=== PATIENT | female | born 1970 | race African-American/Black ===

== ENCOUNTER 2018-01-24 10:43 | Inpatient (IN) | payer MEDICARE, MEDICAID ==
[~2018-01-24] VITALS: Ht 170.2 cm; Wt 86.4 kg
[2018-01-24] VITALS (11 sets, daily range): BP systolic 117–144; BP diastolic 66–78
[2018-01-24] MEDS ORDERED: Sodium Chloride 500ML 500 ML IV ONE (10:48)
[2018-01-24] MEDS ORDERED: Isovue-300 100ml vial INJ PRN (11:00)
[2018-01-24] MEDS ORDERED: Morphine Sulfate 4mg/ml Inj IVP ONE ×2 (11:00→12:30)
[2018-01-24 11:55] LABS: BASOPHILS % (AUTO) 0.2 % (0.0-2.0); EOSINOPHILS % (AUTO) 0.1 % (0.0-3.0); HEMATOCRIT 35.9 % (37.0-47.0); HEMOGLOBIN 12.6 G/DL (12.0-16.0); LYMPHOCYTES % (AUTO) 9.1 % (20.0-45.0); MEAN CORPUSCULAR VOLUME 98 FL (80-99); MONOCYTES % (AUTO) 6.1 % (1.0-10.0); NEUTROPHILS % (AUTO) 84.6 % (45.0-75.0); PLATELET COUNT 277 K/UL (150-450); RED BLOOD COUNT 3.66 M/UL (4.20-5.40); WHITE BLOOD COUNT 13.6 K/UL (4.8-10.8)
[2018-01-24 12:21] LABS: ALANINE AMINOTRANSFERASE 17 U/L (12-78); ALBUMIN 3.1 G/DL (3.4-5.0); ALBUMIN/GLOBULIN RATIO 0.9 (1.0-2.7); ALKALINE PHOSPHATASE 59 U/L (46-116); ANION GAP 11 mmol/L (5-15); ASPARTATE AMINO TRANSFERASE 5 U/L (15-37); BILIRUBIN,TOTAL 0.6 MG/DL (0.2-1.0); BLOOD UREA NITROGEN 9 mg/dL (7-18); CALCIUM 8.1 MG/DL (8.5-10.1); CARBON DIOXIDE 22 MMOL/L (21-32); CHLORIDE 105 MMOL/L (98-107); CKMB 0.9 NG/ML (0.0-3.6); CREATINE KINASE 59 U/L (26-308); SODIUM 138 MMOL/L (136-145)
[2018-01-24 12:30] LABS: CREATININE 0.5 MG/DL (0.55-1.30)
[2018-01-24 12:35] LABS: POTASSIUM 2.7 MMOL/L (3.5-5.1)
[2018-01-24 13:53] LABS: APPEARANCE,URINE SLIGHTLY CLOUDY; BILIRUBIN, URINE NEGATIVE (NEGATIVE); GLUCOSE, URINE (UA) NEGATIVE (NEGATIVE); KETONES,URINE 3+ (NEGATIVE); LEUKOCYTE ESTERASE ,URINE 1+ (NEGATIVE); NITRITE,URINE NEGATIVE (NEGATIVE); PH,URINE 5 (4.5-8.0); PROTEIN,URINE 1+ (NEGATIVE); UROBILINOGEN,URINE NORMAL MG/DL (0.0-1.0)
[2018-01-24 14:03] LABS: COLOR,URINE YELLOW
--- NOTE | 2018-01-24 14:20 | Emergency Room Report ---
History of Present Illness General Chief Complaint: Abdominal Pain Source: Patient, EMS (Brad Muñoz DO) Present Illness HPI Patient presents with complaints of abdominal pain Reports the pain started this morning Patient denies any trauma Denies any chest pain or shortness of breath Patient did have a pleuritic component to the pain Pain is 10 out of 10 complains of epigastric pain also burning sensation in the left lower abdomen Patient reports previous myomectomy but no other surgeries She has some increased nausea Also reports 1 episode of diarrhea (KyrieBard govea DO) Allergies: Coded Allergies: No Known Allergies (Unverified , 01/24/18) Patient History Past Medical History: see triage record Pertinent Family History: none Last Menstrual Period: 01/08/18 Reviewed Nursing Documentation: PMH: Agreed; PSxH: Agreed (KyrieBrad bravo ) Nursing Documentation-PMH Past Medical History: No Stated History (MichaelBrad lang DO) Review of Systems All Other Systems: negative except mentioned in HPI (KyrieBrad govea DO) Physical Exam Vital Signs Date Time Temp Pulse Resp B/P (MAP) Pulse Ox O2 Delivery O2 Flow Rate FiO2 01/24/18 10:32 98.4 80 16 137/72 99 98.4 Sp02 EP Interpretation: reviewed, normal General Appearance: mild distress - Uncomfortable in pain Head: normocephalic, atraumatic Eyes: bilateral eye PERRL, bilateral eye EOMI ENT: hearing grossly normal, normal pharynx, TMs + canals normal, uvula midline Neck: full range of motion, supple, no meningismus, no bony tend Respiratory: lungs clear, normal breath sounds, no rhonchi, no respiratory distress, no retraction, no accessory muscle use Cardiovascular #1: normal peripheral pulses, regular rate, rhythm, no edema, no gallop, no JVD, no murmur Gastrointestinal: normal bowel sounds, soft, no mass, no organomegaly, non- distended, no hernia, no pulsatile mass, tenderness - Diffusely, patient's abdomen is soft however subjectively points diffusely throughout the abdomen, exam is difficult Genitourinary: no CVA tenderness Musculoskeletal: normal inspection Neurologic: oriented x3, responsive, 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, motor strength/ tone normal, sensory intact Psychiatric: mood/affect normal Skin: normal color, no rash, warm/dry, palpation normal Lymphatic: normal inspection, no adenopathy (Brad Muñoz DO) Procedures Critical Care Time Critical Care Time 50 minutes for multiple re-evaluations Critical presentation and critical findings concerning for life-threatening pathology not including any procedural time (Brad Muñoz DO) Medical Decision Making Diagnostic Impression: Primary Impression: Hypokalemia Additional Impressions: Abdominal pain Perforated abdominal viscus ER Course With the history exam and presentation, multiple differentials considered, including but not limited to appendicitis, gastritis, cholecystitis, diverticulitis Patient's blood work reveals elevated white blood cell count CT imaging at this time reveals free air indicative of bowel perforation Gen. surgery is emergently contacted patient requiring emergency surgery Labs Test 01/24/18 11:15 01/24/18 12:15 White Blood Count 13.6 K/UL (4.8-10.8) Red Blood Count 3.66 M/UL (4.20-5.40) Hemoglobin 12.6 G/DL (12.0-16.0) Hematocrit 35.9 % (37.0-47.0) Mean Corpuscular Volume 98 FL (80-99) Mean Corpuscular Hemoglobin 34.4 PG (27.0-31.0) Mean Corpuscular Hemoglobin Concent 35.1 G/DL (32.0-36.0) Red Cell Distribution Width 12.0 % (11.6-14.8) Platelet Count 277 K/UL (150-450) Mean Platelet Volume 5.8 FL (6.5-10.1) Neutrophils (%) (Auto) 84.6 % (45.0-75.0) Lymphocytes (%) (Auto) 9.1 % (20.0-45.0) Monocytes (%) (Auto) 6.1 % (1.0-10.0) Eosinophils (%) (Auto) 0.1 % (0.0-3.0) Basophils (%) (Auto) 0.2 % (0.0-2.0) Sodium Level 138 MMOL/L (136-145) Potassium Level 2.7 MMOL/L (3.5-5.1) Chloride Level 105 MMOL/L (98-107) Carbon Dioxide Level 22 MMOL/L (21-32) Anion Gap 11 mmol/L (5-15) Blood Urea Nitrogen 9 mg/dL (7-18) Creatinine 0.5 MG/DL (0.55-1.30) Estimat Glomerular Filtration Rate > 60 mL/min (>60) Glucose Level 97 MG/DL (74-106) Calcium Level 8.1 MG/DL (8.5-10.1) Total Bilirubin 0.6 MG/DL (0.2-1.0) Aspartate Amino Transf (AST/SGOT) 5 U/L (15-37) Alanine Aminotransferase (ALT/SGPT) 17 U/L (12-78) Alkaline Phosphatase 59 U/L (46-116) Total Creatine Kinase 59 U/L (26-308) Creatine Kinase MB 0.9 NG/ML (0.0-3.6) Creatine Kinase MB Relative Index 1.5 Troponin I 0.000 ng/mL (0.000-0.056) Total Protein 6.7 G/DL (6.4-8.2) Albumin 3.1 G/DL (3.4-5.0) Globulin 3.6 g/dL Albumin/Globulin Ratio 0.9 (1.0-2.7) Lipase 323 U/L (73-393) Urine Color Yellow Urine Appearance Slightly cloudy Urine pH 5 (4.5-8.0) Urine Specific [place] 1.025 (1.005-1.035) Urine Protein 1+ (NEGATIVE) Urine Glucose (UA) Negative (NEGATIVE) Urine Ketones 3+ (NEGATIVE) Urine Occult Blood Negative (NEGATIVE) Urine Nitrite Negative (NEGATIVE) Urine Bilirubin Negative (NEGATIVE) Urine Urobilinogen Normal MG/DL (0.0-1.0) Urine Leukocyte Esterase 1+ (NEGATIVE) Urine RBC 0-2 /HPF (0 - 2) Urine WBC 2-4 /HPF (0 - 2) Urine Squamous Epithelial Cells Few /LPF (NONE/OCC) Urine Bacteria Few /HPF (NONE) Urine Granular Casts 0-2 /LPF (NONE) Urine Mucus Moderate /LPF (NONE/OCC) Urine HCG, Qualitative Negative (NEGATIVE) (ToniAli ) Labs Test 01/24/18 11:15 01/24/18 12:15 White Blood Count 13.6 K/UL (4.8-10.8) Red Blood Count 3.66 M/UL (4.20-5.40) Hemoglobin 12.6 G/DL (12.0-16.0) Hematocrit 35.9 % (37.0-47.0) Mean Corpuscular Volume 98 FL (80-99) Mean Corpuscular Hemoglobin 34.4 PG (27.0-31.0) Mean Corpuscular Hemoglobin Concent 35.1 G/DL (32.0-36.0) Red Cell Distribution Width 12.0 % (11.6-14.8) Platelet Count 277 K/UL (150-450) Mean Platelet Volume 5.8 FL (6.5-10.1) Neutrophils (%) (Auto) 84.6 % (45.0-75.0) Lymphocytes (%) (Auto) 9.1 % (20.0-45.0) Monocytes (%) (Auto) 6.1 % (1.0-10.0) Eosinophils (%) (Auto) 0.1 % (0.0-3.0) Basophils (%) (Auto) 0.2 % (0.0-2.0) Sodium Level 138 MMOL/L (136-145) Potassium Level 2.7 MMOL/L (3.5-5.1) Chloride Level 105 MMOL/L (98-107) Carbon Dioxide Level 22 MMOL/L (21-32) Anion Gap 11 mmol/L (5-15) Blood Urea Nitrogen 9 mg/dL (7-18) Creatinine 0.5 MG/DL (0.55-1.30) Estimat Glomerular Filtration Rate > 60 mL/min (>60) Glucose Level 97 MG/DL (74-106) Calcium Level 8.1 MG/DL (8.5-10.1) Total Bilirubin 0.6 MG/DL (0.2-1.0) Aspartate Amino Transf (AST/SGOT) 5 U/L (15-37) Alanine Aminotransferase (ALT/SGPT) 17 U/L (12-78) Alkaline Phosphatase 59 U/L (46-116) Total Creatine Kinase 59 U/L (26-308) Creatine Kinase MB 0.9 NG/ML (0.0-3.6) Creatine Kinase MB Relative Index 1.5 Troponin I 0.000 ng/mL (0.000-0.056) Total Protein 6.7 G/DL (6.4-8.2) Albumin 3.1 G/DL (3.4-5.0) Globulin 3.6 g/dL Albumin/Globulin Ratio 0.9 (1.0-2.7) Lipase 323 U/L (73-393) Urine Color Yellow Urine Appearance Slightly cloudy Urine pH 5 (4.5-8.0) Urine Specific [place] 1.025 (1.005-1.035) Urine Protein 1+ (NEGATIVE) Urine Glucose (UA) Negative (NEGATIVE) Urine Ketones 3+ (NEGATIVE) Urine Occult Blood Negative (NEGATIVE) Urine Nitrite Negative (NEGATIVE) Urine Bilirubin Negative (NEGATIVE) Urine Urobilinogen Normal MG/DL (0.0-1.0) Urine Leukocyte Esterase 1+ (NEGATIVE) Urine RBC 0-2 /HPF (0 - 2) Urine WBC 2-4 /HPF (0 - 2) Urine Squamous Epithelial Cells Few /LPF (NONE/OCC) Urine Bacteria Few /HPF (NONE) Urine Granular Casts 0-2 /LPF (NONE) Urine Mucus Moderate /LPF (NONE/OCC) Urine HCG, Qualitative Negative (NEGATIVE) (Israel Roa MD) Rhythm Strip Diag. Results EP Interpretation: yes Rate: 88 Rhythm: NSR, no PVC's, no ectopy (Brad Muñoz DO) Chest X-Ray Diagnostic Results Chest X-Ray Diagnostic Results : Chest X-Ray Ordered: Yes # of Views/Limited/Complete: 1 View Indication: Chest Pain EP Interpretation: Yes Interpretation: no consolidation, no effusion, no pneumothorax Impression: No acute disease Electronically Signed by: Brad Muñoz DO (Brad Muñoz DO) CT/MRI/US Diagnostic Results CT/MRI/US Diagnostic Results : Impression CT abdomen pelvis: Free air indicative of perforation (Brad Muñoz DO) CT/MRI/US Diagnostic Results : Imaging Test Ordered: CT A/P Impression Hospital Course 47-year-old M presents to ED with abdominal pain Clinical course Patient initially seen and evaluated by Dr. Muñoz; please see his note for full history and physical CT scan shows free intraperitoneal air, possible perforated viscusis Antibiotics given. Discussed case with Dr. Tavares (surgery) admitted physicians Dr Murdock informed I feel this is a highly complex case requiring extensive working including EKG/ Rhythm strip, Xray/CT/US, Blood/urine lab work, repeat exams while in ED, and administration of strong opiates/narcotics for pain control, admission to hospital or close patient follow up. Diagnosis - abdominal pain, hypokalemia, perofrated viscus admitted to floor in serious condition (Israel Roa MD) Last Vital Signs Date Time Temp Pulse Resp B/P (MAP) Pulse Ox O2 Delivery O2 Flow Rate FiO2 01/24/18 12:24 98.0 01/24/18 11:08 82 23 131/74 99 Status: improved (Brad Muñoz DO) Disposition: ADMITTED INPATIENT Condition: Critical Referrals: NOT CHOSEN IPA/,REFERRING (PCP) Brad Muñoz DO January 24, 2018 14:20 Israel Roa MD January 24, 2018 15:30
--- NOTE | 2018-01-24 14:29 | Diagnostic Imaging Report ---
Indication: Reason For Exam: CP Technique: One view of the chest Comparison: none Findings: Suboptimal inspiration. There is some atelectasis at the left lung base. The lungs and pleural spaces are otherwise clear. Heart size is normal Impression: Left basilar atelectasis No acute process otherwise
[2018-01-24] MEDS ORDERED: NKM (14:38)
[2018-01-24] MEDS ORDERED: Ketorolac 30mg Inj IV ONE (14:45)
[2018-01-24] MEDS ORDERED: Piperacillin/Tazobactam 3.375 GM in D5W 110 ML IVPB ONE (15:15)
--- NOTE | 2018-01-24 15:15 | Diagnostic Imaging Report ---
Clinical Indication: Abdominal pain Technique: No oral contrast utilized, per emergency room physician request IV administration nonionic contrast. Venous phase spiral acquisition obtained through the abdomen and pelvis. Multiplanar reconstructions were generated. Total dose length product 887.23 mGycm. CTDIvol(s) 17.49 mGy. Dose reduction achieved using automated exposure control Comparison: none Findings: There is free intraperitoneal air. This is predominantly over the anterior aspect of the right and left hepatic lobes. A small collection of gas is also seen under the anterior left hemidiaphragm. However, gas bubbles are also seen within the payton hepatis, anterior to the anterior gastric wall, and in Morison's pouch. Some gas bubbles are seen immediately adjacent to the gastric fundus and immediately adjacent to the duodenal bulb. On the coronal images, there is an apparent communication between extraluminal gas and what is either the gastric antrum or duodenal bulb. The stomach and duodenum are nondistended, and therefore not possible to evaluate for wall thickening. There is also free intraperitoneal fluid, predominantly over the dome of the liver and of the spleen but some also within the pelvic cul-de-sac. No evidence of diverticulosis or diverticulitis. The appendix is normal. Small bowel loops are somewhat fluid-filled, nondistended, except for a few prominent left upper quadrant small bowel loops. The liver and gallbladder are unremarkable. There is mild dilatation of the common bile duct, which measures up to 8 mm in diameter. No downstream obstructive lesion is demonstrated. The pancreas, spleen, adrenals, right kidney are unremarkable. Left kidney demonstrates an exophytic subcentimeter low-attenuation lesion which is too small to characterize. The uterus is diffusely enlarged, contains multiple masses. No definite adnexal mass demonstrated. No retroperitoneal or mesenteric mass or adenopathy. The included lung bases demonstrate bilateral pleural effusions. There is some atelectasis at both lung bases and possibly some consolidation on the left. The bones are unremarkable except for lumbar scoliotic deformity and some secondary degenerative spondylosis changes. Impression: Positive for free intraperitoneal air. This is consistent with a perforated hollow viscus. Presence of what appears to be a communication between the gastric antral or duodenal bulb wall suggests gastric antral or duodenal bulb ulcer as etiology, although this cannot be stated for certain Associated free intraperitoneal fluid is also demonstrated Prominent left upper quadrant small bowel loop, likely focal ileus related to the above Mildly dilated common bile duct. No definite downstream obstructive lesion. Of doubtful significance, correlation with liver function tests is recommended Too small to characterize subcentimeter left renal lesion, most likely benign simple cortical cysts. No further follow-up necessary Enlarged uterus with multiple fibroids Bilateral pleural effusions. Associated basilar compressive atelectasis Lumbar scoliosis and secondary degenerative spondylosis Critical value findings provided to Dr. Roa in the emergency room at 1458 on 01/24/[address] scanner at [facility] is accredited by the [employer] and the scans are performed using protocols designed to limit radiation exposure to as low as reasonably achievable to attain images of sufficient resolution adequate for diagnostic evaluation.
[2018-01-24] MEDS ORDERED: Nitroglycerin Subl 0.4mg tab SL PRN (15:30)
[2018-01-24] MEDS ORDERED: Mylanta II UD 30ml ORAL PRN (15:30)
[2018-01-24] MEDS ORDERED: LR 1000ml 1,000 ML IVLG SCH (16:41)
[2018-01-24] MEDS ORDERED: Ketorolac 30mg Inj IV PRN ×2 (16:45)
[2018-01-24] MEDS ORDERED: Metoclopramide 10mg/2ml Inj IVP PRN (16:45)
[2018-01-24] MEDS ORDERED: HYDROcodone/Acetamin 7.5/325 tab ORAL PRN (16:45)
[2018-01-24] MEDS ORDERED: Acetaminophen (Non formulary) 100 ML IV ONE (16:45)
[2018-01-24] MEDS ORDERED: oxyCODONE HCL/Acetaminophen 5/325mg ORAL PRN (16:45)
[2018-01-24] MEDS ORDERED: Labetalol 5mg/ml 20ml vial IV PRN (16:45)
[2018-01-24] MEDS ORDERED: fentaNYL 100 mcg/2 mL IV PRN (16:45)
[2018-01-24] MEDS ORDERED: LORazepam Inj 2mg/ml 1ml IV PRN (16:45)
[2018-01-24] MEDS ORDERED: DiphenhydrAMINE 50mg/ml Inj IVP PRN (16:45)
[2018-01-24] MEDS ORDERED: Midazolam 2mg/2ml Inj IVP PRN (16:45)
[2018-01-24] MEDS ORDERED: Norco 5mg/325mg tab ORAL PRN (16:45)
[2018-01-24] MEDS ORDERED: Atropine Inj 1mg/10ml Syr IV PRN (16:45)
[2018-01-24] MEDS ORDERED: Lidocaine 1% Plain 30 ml INJ ONE ×2 (16:49→16:56)
[2018-01-24] MEDS ORDERED: Neostigmine 1mg/ml 10ml Inj ONE (16:50)
[2018-01-24] MEDS ORDERED: Sodium Chloride 10ml vial INJ ONE (16:50)
[2018-01-24] MEDS ORDERED: Propofol 200mg/20ml IV ONE (16:50)
[2018-01-24] MEDS ORDERED: LR 1000ml ONE (16:50)
[2018-01-24] MEDS ORDERED: Sterile Water Irrig 1000ml IRRIG ONE (16:50)
[2018-01-24] MEDS ORDERED: Dexamethasone 4mg/ml vial ONE (16:50)
[2018-01-24] MEDS ORDERED: Labetalol 5mg/ml 20ml vial IV ONE (16:50)
--- NOTE | 2018-01-24 16:52 | Pre-Procedure Note/Attestation ---
Pre-Procedure Note/Attestation Complete Prior to Procedure Planned Procedure: not applicable Procedure Narrative: exploratory laparotomy Indications for Procedure Pre-Operative Diagnosis: acute abdomen due toperforated hollow viscus Attestation I attest that I discussed the nature of the procedure; its benefits; risks and complications; and alternatives (and the risks and benefits of such alternatives ), prior to the procedure, with the patient (or the patient's legal loss control representative). I attest that, if there was a reasonable possibility of needing a blood transfusion, the patient (or the patient's legal loss control representative) was given the [facility] standardized written summary, pursuant to the Kulwant Thang Blood Safety Act ([place] Health and Safety Code # 1645, as amended). I attest that I re-evaluated the patient just prior to the surgery and that there has been no change in the patient's H&P, except as documented below: Mayank Owusu MD January 24, 2018 16:52
--- NOTE | 2018-01-24 16:59 | Anethesia Preoperative Eval ---
Anesthesia Pre-op PMH/ROS General Date of Evaluation: January 24, 2018 Time of Evaluation: 16:54 Anesthesiologist: Jennifer ASA Score: ASA 3 - Emergency Mallampati Score Class I : Soft palate, uvula, fauces, pillars visible Class II: Soft palate, uvula, fauces visible Class III: Soft palate, base of uvula visible Class IV: Only hard plate visible Mallampati Classification: Class II Surgeon: Francoise Diagnosis: Perforated Viscus Surgical Procedure: Exploratory Laparotomy Anesthesia History: none Family History: no anesthesia problems Allergies: Coded Allergies: No Known Allergies (Unverified , 01/24/18) Medications: see eMAR Past Medical History Cardiovascular: Reports: HTN Gastrointestinal/Genitourinary: Reports: other - Perforated Viscus Hematology/Immune: Reports: anemia Other: obesity - BMI 33 PSxH Narrative: Myomectomy Anesthesia Pre-op Phys. Exam Physician Exam Last Vital Signs Date Time Temp Pulse Resp B/P (MAP) Pulse Ox O2 Delivery O2 Flow Rate FiO2 01/24/18 16:08 98.0 94 20 144/72 99 208.4 Constitutional: NAD Neurologic: CN 2-12 intact Cardiovascular: RRR Respiratory: CTA Gastrointestinal: S/NT/ND Airway Exam Mallampati Score: Class II MO: full ROM: full Teeth: intact Anesthesia Pre-op A/P Labs Hematology Test 01/24/18 11:15 White Blood Count 13.6 K/UL (4.8-10.8) H Red Blood Count 3.66 M/UL (4.20-5.40) L Hemoglobin 12.6 G/DL (12.0-16.0) Hematocrit 35.9 % (37.0-47.0) L Mean Corpuscular Volume 98 FL (80-99) Mean Corpuscular Hemoglobin 34.4 PG (27.0-31.0) H Mean Corpuscular Hemoglobin Concent 35.1 G/DL (32.0-36.0) Red Cell Distribution Width 12.0 % (11.6-14.8) Platelet Count 277 K/UL (150-450) Mean Platelet Volume 5.8 FL (6.5-10.1) L Neutrophils (%) (Auto) 84.6 % (45.0-75.0) H Lymphocytes (%) (Auto) 9.1 % (20.0-45.0) L Monocytes (%) (Auto) 6.1 % (1.0-10.0) Eosinophils (%) (Auto) 0.1 % (0.0-3.0) Basophils (%) (Auto) 0.2 % (0.0-2.0) Chemistry Test 01/24/18 11:15 Sodium Level 138 MMOL/L (136-145) Potassium Level 2.7 MMOL/L (3.5-5.1) *L Chloride Level 105 MMOL/L (98-107) Carbon Dioxide Level 22 MMOL/L (21-32) Anion Gap 11 mmol/L (5-15) Blood Urea Nitrogen 9 mg/dL (7-18) Creatinine 0.5 MG/DL (0.55-1.30) L Estimat Glomerular Filtration Rate > 60 mL/min (>60) Glucose Level 97 MG/DL (74-106) Calcium Level 8.1 MG/DL (8.5-10.1) L Total Bilirubin 0.6 MG/DL (0.2-1.0) Aspartate Amino Transf (AST/SGOT) 5 U/L (15-37) L Alanine Aminotransferase (ALT/SGPT) 17 U/L (12-78) Alkaline Phosphatase 59 U/L (46-116) Total Creatine Kinase 59 U/L (26-308) Creatine Kinase MB 0.9 NG/ML (0.0-3.6) Creatine Kinase MB Relative Index 1.5 Troponin I 0.000 ng/mL (0.000-0.056) Total Protein 6.7 G/DL (6.4-8.2) Albumin 3.1 G/DL (3.4-5.0) L Globulin 3.6 g/dL Albumin/Globulin Ratio 0.9 (1.0-2.7) L Lipase 323 U/L (73-393) Urine Test Test 01/24/18 12:15 Urine HCG, Qualitative Negative (NEGATIVE) Risk Assessment & Plan Assessment: ASA 3E Plan: GA, BIS, GlideScope Status Change Before Surgery: No Pre-Antibiotics Drug: Given in ER Given Within 1 Hr of Incision: Yes Pasquale Rodriguez MD January 24, 2018 16:59
[2018-01-24] MEDS ORDERED: NS Irrig 1000ml IRRIG ONE (17:20)
--- NOTE | 2018-01-24 17:29 | Immediate Post-Op Evaluation ---
Immediate Post-Op Evalulation Immediate Post-Op Evalulation Procedure: Exploratory Laparotomy, Repair Duodenum Date of Evaluation: January 24, 2018 Time of Evaluation: 18:52 IV Fluids: 1000 LR Blood Products: 0 Estimated Blood Loss: 75 Urinary Output: 200 Blood Pressure Systolic: 128 Blood Pressure Diastolic: 73 Pulse Rate: 62 Respiratory Rate: 16 O2 Sat by Pulse Oximetry: 100 Temperature (Fahrenheit): 98.3 Pain Score (1-10): 2 Nausea: No Vomiting: No Complications 0 Patient Status: awake, reacts, patent, extubated, none Hydration Status: adequate Drug: Given Given Within 1 Hr of Incision: Yes Pasquale Rodriguez MD January 24, 2018 17:29
[2018-01-24] MEDS ORDERED: Glycopyrrolate 0.2mg/ml 1ml Vial ONE ×2 (17:41→18:15)
--- NOTE | 2018-01-24 18:31 | Brief Operative Note ---
Immediate Post Operative Note Operative Note Pre-op Diagnosis: acute abdomen due toperforated hollow viscus Procedure: exploratory laparotomy , Gastrorrhaphy with sandra patch Post-op Diagnosis: perforated duodenal ulcer Findings: consistent w/pre-op dx studies Surgeon: Dhaval Logging Equipment Operator: none Anesthesiologist: Dr. Rodriguez Anesthesia: general Specimen: none Complications: none Condition: stable Fluids: per anesthesiologist Estimated Blood Loss: minimal Drains: other - elena Implant(s) used?: No Mayank Owusu MD January 24, 2018 18:31
[2018-01-24] MEDS ORDERED: Acetaminophen 650 MG SUPP RECTAL PRN (18:45)
[2018-01-24] MEDS: D5 1/2NS 1,000 ML IV SCH (21:00)
[2018-01-24] MEDS ORDERED: Miralax 17gm pkt ORAL PRN (21:00)
[2018-01-24] MEDS ORDERED: Heparin 5000 units/ml inj SUBQ SCH (21:00)
[2018-01-24] MEDS: Morphine Sulfate 4mg/ml Inj IM PRN (21:01)
--- NOTE | 2018-01-24 21:15 | Consultation ---
DATE OF CONSULTATION: 01/24/2018 PREOPERATIVE CONSULTATION CONSULTING PHYSICIAN: Mayank Owusu M.D. REQUESTING PHYSICIAN: ER physician. REASON FOR CONSULTATION: Abdominal pain. HISTORY OF PRESENT ILLNESS: This is a 47-year-old female, who presented to the emergency room complaining of abdominal pain since this morning. The pain is located at epigastrium, but it has extended almost all over the abdomen. This pain has been associated with nausea and vomiting. She denies any previous history of similar pain. She denies history of peptic ulcer disease. She denies consumption of the aspirin, ibuprofen, or steroid. PAST MEDICAL HISTORY: She denies allergies, asthma, diabetes, hypertension, and renal diseases. She has a history of low back pain. PAST SURGICAL HISTORY: Surgeries include operation on the uterus and podiatric surgery. MEDICATIONS: She takes Soma and Vicodin. SOCIAL HISTORY: The patient is a 47-year-old female, who is single without children. She is unemployed. Denies smoking and drinking. REVIEW OF SYSTEMS: She complains of back pain. PHYSICAL EXAMINATION: GENERAL: The patient appeared to be a well-developed and well-nourished 47-year-old female, lying on the gurney, complaining of severe abdominal pain. HEENT: Head is normocephalic and atraumatic. Eyes, pupils are equal, round, and reactive to light. Mouth is clear. NECK: There is no palpable thyromegaly or adenopathy. CHEST: Clear to auscultation and percussion. HEART: There is no gallop or murmur. S1 and S2 are within normal limits. ABDOMEN: Flat with rebound tenderness and guarding all over the abdomen, which is more pronounced in the upper abdomen. GENITAL: Deferred. EXTREMITIES: Within normal limits. LABORATORY AND DIAGNOSTIC DATA: CBC has shown a WBC of 13,600 with a left shift. Chemistry has shown a potassium of 2.7. The CT scan of the abdomen has shown free intraperitoneal air, this is consistent with perforated hollow viscus and the radiologist felt that it is probably due to the duodenal or gastric ulcer. ASSESSMENT: Acute abdomen due to the perforated hollow viscus. PLAN: The patient requires exploratory laparotomy. The risks and benefits have been explained to her. She understood and granted the consent form. Mayank Owusu M.D. DR: REGGIE JOB#: [id number] CC:
--- NOTE | 2018-01-24 21:45 | Operative Note - Dictated ---
DATE OF OPERATION: 01/24/2018 PREOPERATIVE DIAGNOSIS: Acute abdomen due to the perforated hollow viscus. POSTOPERATIVE DIAGNOSIS: Perforated duodenal ulcer. OPERATION: Exploratory laparotomy, gastrorrhaphy with Grover patch. SURGEON: Mayank Owusu M.D. GASKET INSPECTOR: None. ANESTHESIA: General with endotracheal tube. ANESTHESIOLOGIST: Dr. Rodriguez. COMPLICATIONS: None. INDICATION: This is a 47-year-old female, who presented to emergency room complaining of abdominal pain since this morning. The pain initially was at upper abdomen and then it has extended allover the abdomen. This may have been associated with nausea and vomiting. Physical examination showed rebound tenderness and guarding allover the abdomen, which was more pronounced at the upper abdomen. The CBC showed WBC of 13,600 with left shift and the CAT scan of the abdomen was interpreted with free intra-abdominal air. DESCRIPTION OF PROCEDURE: The patient was placed supine on the operating table and after general anesthesia with endotracheal tube, the abdomen was properly prepped and draped. A midline incision was given from xiphoid to above the umbilicus and was carried sharply through subcutaneous tissue, fascia, and peritoneum. The intra-abdominal cavity was entered and large amount of bilious fluid was noticed. The fluid was aspirated and then the exploration was performed which showed the stomach to be normal. She had perforation of the duodenal ulcer at the anterior aspect of the first portion of the duodenum. The liver was normal. The bowels were covered with omentum and the uterus was very large containing fibromas. The duodenum was exposed and then the perforation was repaired with multiple interrupted suture of 4-0 silk in transverse fashion. The repair was enforced with a piece of the omentum which was placed over the repair and was tacked down as a Grover patch. After this, the intraperitoneal cavity was thoroughly irrigated with antibiotic solution and then a Bronson drain was placed under the liver and was brought out from a separate stab wound at the right lower quadrant of the abdomen. Another exploration was performed. As there was no complication or bleeding, the incision was approximated with running suture of #0 Vicryl for the posterior fascia and peritoneum, #1 Prolene for the anterior fascia, and multiple skin abena for the skin. The patient tolerated the procedure very well and was transferred to recovery room in stable condition extubated. COUNT: The sponge and needle count correct. ESTIMATED BLOOD LOSS: 50 mL. Condition of the patient at the end of procedure was stable. Mayank Owusu M.D. DR: Sagrario JOB#: [id number] CC:
[2018-01-24] MEDS: D5 1/2NS w/KCl 20mEq 1,000 ML IV SCH (22:02)
[2018-01-24] MEDS: ceFAZolin sod 2 GM in D5W 110 ML IV SCH (22:06)
--- NOTE | 2018-01-24 22:56 | History & Physical ---
History and Physical History & Physicial Last 24 Hour Vital Signs Date Time Temp Pulse Resp B/P (MAP) Pulse Ox O2 Delivery O2 Flow Rate FiO2 01/24/18 21:01 98.1 01/24/18 20:00 98.1 70 18 124/78 100 98.1 01/24/18 20:00 98.1 70 18 124/78 100 98.1 01/24/18 19:38 98.0 01/24/18 19:25 98.0 58 20 118/68 100 Nasal Cannula 3.0 98.0 01/24/18 19:15 57 19 118/68 100 Nasal Cannula 3.0 01/24/18 19:10 57 19 117/66 100 Nasal Cannula 3.0 01/24/18 19:01 98.7 01/24/18 19:00 59 18 143/71 100 Nasal Cannula 3.0 01/24/18 18:50 62 18 138/74 100 Nasal Cannula 3.0 01/24/18 18:45 65 20 129/75 100 Simple Mask 6.0 01/24/18 18:41 98.3 60 19 128/73 100 Simple Mask 6.0 98.3 01/24/18 18:37 208.9 62 16 100 01/24/18 16:08 98.0 94 20 144/72 99 208.4 01/24/18 15:00 98.4 94 20 144/72 99 98.4 01/24/18 14:36 98.0 01/24/18 13:00 98.4 82 20 132/72 99 98.4 01/24/18 12:24 98.0 01/24/18 11:08 98.0 82 23 131/74 99 98.0 01/24/18 11:02 98.4 01/24/18 10:32 98.4 80 16 137/72 99 98.4 Job @ [id number] James Murdock MD January 24, 2018 22:56
[2018-01-25] VITALS: BP 135/83
[2018-01-25] MEDS: Morphine Sulfate 4mg/ml Inj IM PRN ×2 (00:14→05:57)
[2018-01-25 04:00] VITALS: BP 132/72
[2018-01-25] MEDS: D5 1/2NS w/KCl 20mEq 1,000 ML IV SCH ×2 (05:40→17:06)
[2018-01-25] MEDS: D5 1/2NS 1,000 ML IV SCH (05:40)
[2018-01-25] MEDS: ceFAZolin sod 2 GM in D5W 110 ML IV SCH (06:08)
[2018-01-25 08:00] VITALS: BP 128/76
[2018-01-25 08:08] LABS: HEMATOCRIT 32.4 % (37.0-47.0); HEMOGLOBIN 11.3 G/DL (12.0-16.0); MEAN CORPUSCULAR VOLUME 98 FL (80-99); PLATELET COUNT 246 K/UL (150-450); RED BLOOD COUNT 3.31 M/UL (4.20-5.40); RED CELL DISTRIBUTION WIDTH 11.9 % (11.6-14.8); WHITE BLOOD COUNT 14.2 K/UL (4.8-10.8)
[2018-01-25 08:37] LABS: ALANINE AMINOTRANSFERASE 13 U/L (12-78); ALBUMIN 2.4 G/DL (3.4-5.0); ALBUMIN/GLOBULIN RATIO 0.7 (1.0-2.7); ALKALINE PHOSPHATASE 44 U/L (46-116); AMYLASE 54 U/L (25-115); ANION GAP 9 mmol/L (5-15); ASPARTATE AMINO TRANSFERASE 16 U/L (15-37); BILIRUBIN,TOTAL 0.5 MG/DL (0.2-1.0); BLOOD UREA NITROGEN 8 mg/dL (7-18); CALCIUM 8.1 MG/DL (8.5-10.1); CARBON DIOXIDE 23 MMOL/L (21-32); CHLORIDE 106 MMOL/L (98-107); CREATININE 0.9 MG/DL (0.55-1.30); SODIUM 138 MMOL/L (136-145)
[2018-01-25] MEDS ORDERED: Morphine Sulfate 4mg/ml Inj IVP PRN ×3 (08:45→12:25)
[2018-01-25] MEDS ORDERED: Pantoprazole Inj IVP SCH (09:00)
[2018-01-25] MEDS: Pantoprazole Inj IVP SCH (09:28)
[2018-01-25] MEDS: Enoxaparin 40mg Inj SUBQ SCH (09:33)
--- NOTE | 2018-01-25 11:49 | GI Initial Consult Note ---
History of Present Illness General Date patient seen: January 25, 2018 Time patient seen: 11:00 Reason for Hospitalization: Abdominal Pain Referring physician: IRIS AHN Reason for Consultation: ABDOMINAL PAIN Present Illness HPI This is a 47-year-old female, who presented to emergency room complaining of generalized abdominal pain which initially began at the upper abdomen. In addition, the patient had associated nausea and vomiting. Noted rebound tenderness and guarding all over. The patient had a CT scan which showed free intra-abdominal pain. The patient is now s/p exploratory laparotomy , Gastrorrhaphy with grover patch. GI consulted for abdominal pain/post operative N/V. Pt seen, awake A&Ox4 c/o of 10/10 abdominal pain noted with dressing over the midabdomen which is C/D/I at this time. Pigtail drainage present. NGT present. Labs reviewed show mild anemia and mild leukocytosis. No known history of endoscopy / colonoscopy. Home Meds Reported Medications No Known Medications* (NKM - No Known Medications*) ., 0 ., 0 Refills 01/24/18 Med list reviewed/reconciled: Yes Allergies: Coded Allergies: No Known Allergies (Unverified , 01/24/18) Patient History History Provided By: Patient, Medical Record PMH Narrative unable to obtain, patient is fatigue and in pain Social History: Denies: smoking, alcohol use, drug use, other Review of Systems All Other Systems: negative except mentioned in HPI Physical Exam Vital Signs Date Time Temp Pulse Resp B/P (MAP) Pulse Ox O2 Delivery O2 Flow Rate FiO2 01/24/18 10:32 98.4 80 16 137/72 99 98.4 01/24/18 18:41 Simple Mask 6.0 Sp02 EP Interpretation: reviewed, normal Labs Laboratory Tests Test 01/24/18 12:15 01/25/18 07:10 Urine Color Yellow Urine Appearance Slightly cloudy Urine pH 5 (4.5-8.0) Urine Specific [place] 1.025 (1.005-1.035) Urine Protein 1+ (NEGATIVE) H Urine Glucose (UA) Negative (NEGATIVE) Urine Ketones 3+ (NEGATIVE) H Urine Occult Blood Negative (NEGATIVE) Urine Nitrite Negative (NEGATIVE) Urine Bilirubin Negative (NEGATIVE) Urine Urobilinogen Normal MG/DL (0.0-1.0) Urine Leukocyte Esterase 1+ (NEGATIVE) H Urine RBC 0-2 /HPF (0 - 2) Urine WBC 2-4 /HPF (0 - 2) Urine Squamous Epithelial Cells Few /LPF (NONE/OCC) Urine Bacteria Few /HPF (NONE) Urine Granular Casts 0-2 /LPF (NONE) H Urine Mucus Moderate /LPF (NONE/OCC) H Urine HCG, Qualitative Negative (NEGATIVE) White Blood Count 14.2 K/UL (4.8-10.8) H Red Blood Count 3.31 M/UL (4.20-5.40) L Hemoglobin 11.3 G/DL (12.0-16.0) L Hematocrit 32.4 % (37.0-47.0) L Mean Corpuscular Volume 98 FL (80-99) Mean Corpuscular Hemoglobin 34.3 PG (27.0-31.0) H Mean Corpuscular Hemoglobin Concent 35.0 G/DL (32.0-36.0) Red Cell Distribution Width 11.9 % (11.6-14.8) Platelet Count 246 K/UL (150-450) Mean Platelet Volume 5.7 FL (6.5-10.1) L Neutrophils (%) (Auto) % (45.0-75.0) Lymphocytes (%) (Auto) % (20.0-45.0) Monocytes (%) (Auto) % (1.0-10.0) Eosinophils (%) (Auto) % (0.0-3.0) Basophils (%) (Auto) % (0.0-2.0) Differential Total Cells Counted 100 Neutrophils % (Manual) 86 % (45-75) H Lymphocytes % (Manual) 8 % (20-45) L Monocytes % (Manual) 5 % (1-10) Eosinophils % (Manual) 0 % (0-3) Basophils % (Manual) 0 % (0-2) Band Neutrophils 1 % (0-8) Platelet Estimate Adequate Platelet Morphology Normal Red Blood Cell Morphology Normal Activated Partial Thromboplast Time 30 SEC (23-33) Sodium Level 138 MMOL/L (136-145) Potassium Level 4.0 MMOL/L (3.5-5.1) Chloride Level 106 MMOL/L (98-107) Carbon Dioxide Level 23 MMOL/L (21-32) Anion Gap 9 mmol/L (5-15) Blood Urea Nitrogen 8 mg/dL (7-18) Creatinine 0.9 MG/DL (0.55-1.30) # Estimat Glomerular Filtration Rate > 60 mL/min (>60) Glucose Level 112 MG/DL (74-106) H Calcium Level 8.1 MG/DL (8.5-10.1) L Total Bilirubin 0.5 MG/DL (0.2-1.0) Aspartate Amino Transf (AST/SGOT) 16 U/L (15-37) Alanine Aminotransferase (ALT/SGPT) 13 U/L (12-78) Alkaline Phosphatase 44 U/L (46-116) L Total Protein 6.0 G/DL (6.4-8.2) L Albumin 2.4 G/DL (3.4-5.0) L Globulin 3.6 g/dL Albumin/Globulin Ratio 0.7 (1.0-2.7) L Amylase Level 54 U/L (25-115) Lipase 78 U/L (73-393) General Appearance: well appearing, no apparent distress, alert Head: normocephalic EENT: PERRL/EOMI, normal ENT inspection Neck: supple Respiratory: normal breath sounds, no respiratory distress Cardiovascular: normal rate Gastrointestinal: normal inspection, non tender, soft, normal bowel sounds, non -distended, other - surgical incision Rectal: deferred Genitourinary: no CVA tenderness Musculoskeletal: normal inspection, back normal Neurologic: normal inspection, alert, oriented x3, responsive Psychiatric: normal inspection, judgement/insight normal, memory normal Skin: normal inspection, normal color, no rash, warm/dry, palpation normal, well hydrated, other - surgical incision Lymphatic: normal inspection, no adenopathy Current Medications Current Medications Medications (Trade) Dose Ordered Sig/Evelyn Route PRN Reason Start Time Stop Time Status Last Admin Dose Admin Acetaminophen (Tylenol) 650 mg Q4H PRN ORAL fever 01/24/18 15:30 02/23/18 15:29 Acetaminophen (Tylenol) 650 mg Q4H PRN RECTAL FEVER 01/24/18 18:45 18 18:44 Al Hydroxide/Mg Hydroxide (Mylanta II) 30 ml Q6H PRN ORAL dyspepsia 01/24/18 15:30 02/23/18 15:29 Dextrose (Dextrose 50%) STAT PRN IV Hypoglycemia 01/24/18 15:30 02/23/18 15:29 Dextrose (Dextrose 50%) STAT PRN IV Hypoglycemia 01/25/18 10:15 02/24/18 10:14 Dextrose/ Electrolytes 1,000 ml @ 100 mls/hr Q10H IV 01/24/18 19:30 02/23/18 19:29 01/25/18 05:40 Diphenhydramine HCl (Benadryl) 25 mg Q6H PRN ORAL Itching/Pruritis 01/24/18 15:30 02/23/18 15:29 Enoxaparin Sodium (Lovenox) 40 mg DAILY SUBQ 01/25/18 09:00 02/24/18 08:59 01/25/18 09:33 Iopamidol (Isovue-300 100ml) 100 ml NOW PRN INJ Radiology Procedure 01/24/18 11:00 Metoclopramide HCl (Reglan) 10 mg Q6H PRN IVP Nausea & Vomiting 01/24/18 18:45 02/23/18 18:44 Morphine Sulfate (Morphine Sulfate) 4 mg Q3H PRN IVP For Pain 01/25/18 12:25 02/01/18 12:24 Nitroglycerin (Ntg) 0.4 mg Q5M X 3 DOSES PRN SL Prn Chest Pain 01/24/18 15:30 02/23/18 15:29 Ondansetron HCl (Zofran) 4 mg Q6H PRN IVP Nausea & Vomiting 01/24/18 15:30 02/23/18 15:29 Pantoprazole (Protonix) 40 mg DAILY IVP 01/25/18 09:00 02/24/18 08:59 01/25/18 09:28 Polyethylene Glycol (Miralax) 17 gm HSPRN PRN ORAL Constipation 01/24/18 21:00 02/23/18 20:59 Temazepam (Restoril) 15 mg HSPRN PRN ORAL Insomnia 01/24/18 21:00 01/31/18 20:59 GI: Plan Problems: (1) Perforated abdominal viscus (2) Abdominal pain Plan POD #1 >> s/p Exploratory laparotomy, gastrorrhaphy with Grover surgery follows maintain NPO + IVFs pain mgmt >> consider 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 Byrd. Thank you for this patient referral, we will follow. The patient was seen and examined at bedside and all new and available data was reviewed in the patients chart. I agree with the above findings, impression and plan. (Patient seen earlier today. Signature stamp does not reflect patient encounter time.). - MD [facility] January 25, 2018 11:48
[2018-01-25 12:00] VITALS: BP 128/73
--- NOTE | 2018-01-25 13:59 | 48 Hour Post Anesthesia Eval ---
Post Anesthesia Evaluation Procedure: Exploratory Laparotomy, Repair Duodenum Date of Evaluation: January 25, 2018 Time of Evaluation: 12:00 Blood Pressure Systolic: 123 0: 73 Pulse Rate: 70 Respiratory Rate: 19 Temperature (Fahrenheit): 98.1 O2 Sat by Pulse Oximetry: 97 Airway: patent Nausea: Yes Vomiting: No Pain Intensity: 10 If pain is > 6 Comment: nurse infomed, Additional pain meds given bu nurse during current evalution Hydration Status: adequate Mental Status/LOC: other - patient still with high level of pain and discomfort. Surgeon notified Post-Anesthesia Complications: none Follow-up care needed: N/A Jacquelyn Saini M.D. January 25, 2018 13:59
--- NOTE | 2018-01-25 13:59 | Consultation ---
Consult Note Consult Note ? dicatation # Russel Walker MD January 25, 2018 13:59
--- NOTE | 2018-01-25 14:09 | General Surgery Progress Note ---
General Surgery-Progress Note Subjective Procedure Performed exploratory laparotomy , Gastrorrhaphy with sandra patch Objective Last 24 Hour Vital Signs Date Time Temp Pulse Resp B/P (MAP) Pulse Ox O2 Delivery O2 Flow Rate FiO2 01/25/18 13:59 208.6 70 19 97 01/25/18 12:00 98.1 70 19 128/73 97 Nasal Cannula 3.0 98.1 01/25/18 08:00 98.1 82 20 128/76 99 98.1 01/25/18 06:27 98.1 01/25/18 05:57 98.1 01/25/18 04:00 98.1 57 20 132/72 100 98.1 01/25/18 00:14 98.1 01/25/18 00:00 98.4 89 20 135/83 99 98.4 01/24/18 21:01 98.1 01/24/18 20:00 98.1 70 18 124/78 100 98.1 01/24/18 20:00 98.1 70 18 124/78 100 98.1 01/24/18 19:38 98.0 01/24/18 19:25 98.0 58 20 118/68 100 Nasal Cannula 3.0 98.0 01/24/18 19:15 57 19 118/68 100 Nasal Cannula 3.0 01/24/18 19:10 57 19 117/66 100 Nasal Cannula 3.0 01/24/18 19:01 98.7 01/24/18 19:00 59 18 143/71 100 Nasal Cannula 3.0 01/24/18 18:50 62 18 138/74 100 Nasal Cannula 3.0 01/24/18 18:45 65 20 129/75 100 Simple Mask 6.0 01/24/18 18:41 98.3 60 19 128/73 100 Simple Mask 6.0 98.3 01/24/18 18:37 208.9 62 16 100 01/24/18 16:08 98.0 94 20 144/72 99 208.4 01/24/18 15:00 98.4 94 20 144/72 99 98.4 01/24/18 14:36 98.0 I&O Intake and Output 01/24/18 01/25/18 19:00 07:00 Intake Total 1500 ml 1110 ml Output Total 350 ml 400 ml Balance 1150 ml 710 ml Intake Oral 0 ml IV Total 1500 ml 1110 ml Output Urine Total 300 ml 400 ml Estimated Blood Loss 50 ml Drains: elena Respiratory: clear Abdomen: soft, flat, tenderness, absent bowel sounds Extremities: no tenderness Laboratory Tests Test 01/25/18 07:10 White Blood Count 14.2 K/UL (4.8-10.8) H Red Blood Count 3.31 M/UL (4.20-5.40) L Hemoglobin 11.3 G/DL (12.0-16.0) L Hematocrit 32.4 % (37.0-47.0) L Mean Corpuscular Volume 98 FL (80-99) Mean Corpuscular Hemoglobin 34.3 PG (27.0-31.0) H Mean Corpuscular Hemoglobin Concent 35.0 G/DL (32.0-36.0) Red Cell Distribution Width 11.9 % (11.6-14.8) Platelet Count 246 K/UL (150-450) Mean Platelet Volume 5.7 FL (6.5-10.1) L Neutrophils (%) (Auto) % (45.0-75.0) Lymphocytes (%) (Auto) % (20.0-45.0) Monocytes (%) (Auto) % (1.0-10.0) Eosinophils (%) (Auto) % (0.0-3.0) Basophils (%) (Auto) % (0.0-2.0) Differential Total Cells Counted 100 Neutrophils % (Manual) 86 % (45-75) H Lymphocytes % (Manual) 8 % (20-45) L Monocytes % (Manual) 5 % (1-10) Eosinophils % (Manual) 0 % (0-3) Basophils % (Manual) 0 % (0-2) Band Neutrophils 1 % (0-8) Platelet Estimate Adequate Platelet Morphology Normal Red Blood Cell Morphology Normal Activated Partial Thromboplast Time 30 SEC (23-33) Sodium Level 138 MMOL/L (136-145) Potassium Level 4.0 MMOL/L (3.5-5.1) Chloride Level 106 MMOL/L (98-107) Carbon Dioxide Level 23 MMOL/L (21-32) Anion Gap 9 mmol/L (5-15) Blood Urea Nitrogen 8 mg/dL (7-18) Creatinine 0.9 MG/DL (0.55-1.30) # Estimat Glomerular Filtration Rate > 60 mL/min (>60) Glucose Level 112 MG/DL (74-106) H Calcium Level 8.1 MG/DL (8.5-10.1) L Total Bilirubin 0.5 MG/DL (0.2-1.0) Aspartate Amino Transf (AST/SGOT) 16 U/L (15-37) Alanine Aminotransferase (ALT/SGPT) 13 U/L (12-78) Alkaline Phosphatase 44 U/L (46-116) L Total Protein 6.0 G/DL (6.4-8.2) L Albumin 2.4 G/DL (3.4-5.0) L Globulin 3.6 g/dL Albumin/Globulin Ratio 0.7 (1.0-2.7) L Amylase Level 54 U/L (25-115) Lipase 78 U/L (73-393) Assessment Post-op Diagnosis perforated duodenal ulcer Plan Additional Comments continue as before Mayank Owusu MD January 25, 2018 14:09
[2018-01-25] MEDS ORDERED: Tubing IV Secondary IV ONE (15:12)
[2018-01-25] MEDS: cefTRIAXone 1 GM in NS 110 ML IVPB SCH (15:28)
[2018-01-25] MEDS: Morphine Sulfate 4mg/ml Inj IVP PRN ×3 (15:28→21:55)
--- NOTE | 2018-01-25 15:46 | Consultation ---
History of Present Illness General Date patient seen: January 25, 2018 Chief Complaint: Abdominal Pain Referring physician: IRIS AHN Reason for Consultation: ABDOMINAL PAIN Present Illness HPI 47 year old female presents with complaints of abdominal pain. Pain is 10 out of 10 complains of epigastric pain also burning sensation in the left lower abdomen She has some increased nausea. Also reports 1 episode of diarrhea. she was diagnosed to have perforated viscous and was referred to surgery for further management. Allergies: Coded Allergies: No Known Allergies (Unverified , 01/24/18) Medication History Scheduled No Known Medications* (NKM - No Known Medications*), 0 ., (Reported) Patient History Healthcare decision maker RICHARD ZIEGLER Resuscitation status Full Code Advanced Directive on File N/A Review of Systems All Other Systems: negative except mentioned in HPI Physical Exam General Appearance: WD/WN Lines, tubes and drains: peripheral HEENT: normocephalic Neck: non-tender Respiratory/Chest: chest wall non-tender, lungs clear Cardiovascular/Chest: normal peripheral pulses Abdomen: normal bowel sounds Extremities: normal range of motion Skin Exam: normal pigmentation Last 24 Hour Vital Signs Date Time Temp Pulse Resp B/P (MAP) Pulse Ox O2 Delivery O2 Flow Rate FiO2 01/25/18 13:59 208.6 70 19 97 01/25/18 12:00 98.1 70 19 128/73 97 Nasal Cannula 3.0 98.1 01/25/18 08:00 98.1 82 20 128/76 99 98.1 01/25/18 06:27 98.1 01/25/18 05:57 98.1 01/25/18 04:00 98.1 57 20 132/72 100 98.1 01/25/18 00:14 98.1 01/25/18 00:00 98.4 89 20 135/83 99 98.4 01/24/18 21:01 98.1 01/24/18 20:00 98.1 70 18 124/78 100 98.1 01/24/18 20:00 98.1 70 18 124/78 100 98.1 01/24/18 19:38 98.0 01/24/18 19:25 98.0 58 20 118/68 100 Nasal Cannula 3.0 98.0 01/24/18 19:15 57 19 118/68 100 Nasal Cannula 3.0 01/24/18 19:10 57 19 117/66 100 Nasal Cannula 3.0 01/24/18 19:01 98.7 01/24/18 19:00 59 18 143/71 100 Nasal Cannula 3.0 01/24/18 18:50 62 18 138/74 100 Nasal Cannula 3.0 01/24/18 18:45 65 20 129/75 100 Simple Mask 6.0 01/24/18 18:41 98.3 60 19 128/73 100 Simple Mask 6.0 98.3 01/24/18 18:37 208.9 62 16 100 01/24/18 16:08 98.0 94 20 144/72 99 208.4 Intake and Output 01/24/18 01/25/18 19:00 07:00 Intake Total 1500 ml 1110 ml Output Total 350 ml 400 ml Balance 1150 ml 710 ml Intake Oral 0 ml IV Total 1500 ml 1110 ml Output Urine Total 300 ml 400 ml Estimated Blood Loss 50 ml Laboratory Tests Test 01/25/18 07:10 White Blood Count 14.2 K/UL (4.8-10.8) H Red Blood Count 3.31 M/UL (4.20-5.40) L Hemoglobin 11.3 G/DL (12.0-16.0) L Hematocrit 32.4 % (37.0-47.0) L Mean Corpuscular Volume 98 FL (80-99) Mean Corpuscular Hemoglobin 34.3 PG (27.0-31.0) H Mean Corpuscular Hemoglobin Concent 35.0 G/DL (32.0-36.0) Red Cell Distribution Width 11.9 % (11.6-14.8) Platelet Count 246 K/UL (150-450) Mean Platelet Volume 5.7 FL (6.5-10.1) L Neutrophils (%) (Auto) % (45.0-75.0) Lymphocytes (%) (Auto) % (20.0-45.0) Monocytes (%) (Auto) % (1.0-10.0) Eosinophils (%) (Auto) % (0.0-3.0) Basophils (%) (Auto) % (0.0-2.0) Differential Total Cells Counted 100 Neutrophils % (Manual) 86 % (45-75) H Lymphocytes % (Manual) 8 % (20-45) L Monocytes % (Manual) 5 % (1-10) Eosinophils % (Manual) 0 % (0-3) Basophils % (Manual) 0 % (0-2) Band Neutrophils 1 % (0-8) Platelet Estimate Adequate Platelet Morphology Normal Red Blood Cell Morphology Normal Activated Partial Thromboplast Time 30 SEC (23-33) Sodium Level 138 MMOL/L (136-145) Potassium Level 4.0 MMOL/L (3.5-5.1) Chloride Level 106 MMOL/L (98-107) Carbon Dioxide Level 23 MMOL/L (21-32) Anion Gap 9 mmol/L (5-15) Blood Urea Nitrogen 8 mg/dL (7-18) Creatinine 0.9 MG/DL (0.55-1.30) # Estimat Glomerular Filtration Rate > 60 mL/min (>60) Glucose Level 112 MG/DL (74-106) H Calcium Level 8.1 MG/DL (8.5-10.1) L Total Bilirubin 0.5 MG/DL (0.2-1.0) Aspartate Amino Transf (AST/SGOT) 16 U/L (15-37) Alanine Aminotransferase (ALT/SGPT) 13 U/L (12-78) Alkaline Phosphatase 44 U/L (46-116) L Total Protein 6.0 G/DL (6.4-8.2) L Albumin 2.4 G/DL (3.4-5.0) L Globulin 3.6 g/dL Albumin/Globulin Ratio 0.7 (1.0-2.7) L Amylase Level 54 U/L (25-115) Lipase 78 U/L (73-393) Height (Feet): 5 Height (Inches): 7.00 Weight (Pounds): 208 Medications Current Medications Medications (Trade) Dose Ordered Sig/Evelyn Route PRN Reason Start Time Stop Time Status Last Admin Dose Admin Acetaminophen (Tylenol) 650 mg Q4H PRN ORAL fever 01/24/18 15:30 02/23/18 15:29 Acetaminophen (Tylenol) 650 mg Q4H PRN RECTAL FEVER 01/24/18 18:45 02/23/18 18:44 Al Hydroxide/Mg Hydroxide (Mylanta II) 30 ml Q6H PRN ORAL dyspepsia 01/24/18 15:30 02/23/18 15:29 Ceftriaxone Sodium 1 gm/ Sodium Chloride 110 ml @ 220 mls/hr Q24H IVPB 01/25/18 15:00 02/01/18 14:59 01/25/18 15:28 Dextrose (Dextrose 50%) STAT PRN IV Hypoglycemia 01/24/18 15:30 02/23/18 15:29 Dextrose (Dextrose 50%) STAT PRN IV Hypoglycemia 01/25/18 10:15 02/24/18 10:14 Dextrose/ Electrolytes 1,000 ml @ 100 mls/hr Q10H IV 01/24/18 19:30 02/23/18 19:29 01/25/18 05:40 Diphenhydramine HCl (Benadryl) 25 mg Q6H PRN ORAL Itching/Pruritis 01/24/18 15:30 02/23/18 15:29 Enoxaparin Sodium (Lovenox) 40 mg DAILY SUBQ 01/25/18 09:00 02/24/18 08:59 01/25/18 09:33 Iopamidol (Isovue-300 100ml) 100 ml NOW PRN INJ Radiology Procedure 01/24/18 11:00 Metoclopramide HCl (Reglan) 10 mg Q6H PRN IVP Nausea & Vomiting 01/24/18 18:45 02/23/18 18:44 Metronidazole 100 ml @ 100 mls/hr Q8H IVPB 01/25/18 15:30 02/01/18 15:29 Morphine Sulfate (Morphine Sulfate) 10 mg Q3H PRN IVP For Pain 01/25/18 13:47 02/01/18 13:46 01/25/18 15:28 Nitroglycerin (Ntg) 0.4 mg Q5M X 3 DOSES PRN SL Prn Chest Pain 01/24/18 15:30 02/23/18 15:29 Ondansetron HCl (Zofran) 4 mg Q6H PRN IVP Nausea & Vomiting 01/24/18 15:30 02/23/18 15:29 Pantoprazole (Protonix) 40 mg DAILY IVP 01/25/18 09:00 02/24/18 08:59 01/25/18 09:28 Polyethylene Glycol (Miralax) 17 gm HSPRN PRN ORAL Constipation 01/24/18 21:00 02/23/18 20:59 Temazepam (Restoril) 15 mg HSPRN PRN ORAL Insomnia 01/24/18 21:00 01/31/18 20:59 Assessment/Plan Problem List: (1) Perforated abdominal viscus (2) Abdominal pain ICD Codes: R10.9 - Unspecified abdominal pain SNOMED: 44104654 (3) Hypokalemia ICD Codes: E87.6 - Hypokalemia SNOMED: 59316646 Assessment/Plan NPO iv fluids iv abx surgical evaluation and f/u dvt prophylaxis pain management. Angelica Lyons MD January 25, 2018 15:46
--- NOTE | 2018-01-25 15:53 | Consultation ---
History of Present Illness General Date patient seen: January 25, 2018 Chief Complaint: Abdominal Pain Referring physician: IRIS AHN Reason for Consultation: ABDOMINAL PAIN Present Illness Allergies: Coded Allergies: No Known Allergies (Unverified , 01/24/18) Medication History Scheduled No Known Medications* (NKM - No Known Medications*), 0 ., (Reported) Patient History Healthcare decision maker RICHARD ZIEGLER Resuscitation status Full Code Advanced Directive on File N/A Physical Exam Last 24 Hour Vital Signs Date Time Temp Pulse Resp B/P (MAP) Pulse Ox O2 Delivery O2 Flow Rate FiO2 01/25/18 13:59 208.6 70 19 97 01/25/18 12:00 98.1 70 19 128/73 97 Nasal Cannula 3.0 98.1 01/25/18 08:00 98.1 82 20 128/76 99 98.1 01/25/18 06:27 98.1 01/25/18 05:57 98.1 01/25/18 04:00 98.1 57 20 132/72 100 98.1 01/25/18 00:14 98.1 01/25/18 00:00 98.4 89 20 135/83 99 98.4 01/24/18 21:01 98.1 01/24/18 20:00 98.1 70 18 124/78 100 98.1 01/24/18 20:00 98.1 70 18 124/78 100 98.1 01/24/18 19:38 98.0 01/24/18 19:25 98.0 58 20 118/68 100 Nasal Cannula 3.0 98.0 01/24/18 19:15 57 19 118/68 100 Nasal Cannula 3.0 01/24/18 19:10 57 19 117/66 100 Nasal Cannula 3.0 01/24/18 19:01 98.7 01/24/18 19:00 59 18 143/71 100 Nasal Cannula 3.0 01/24/18 18:50 62 18 138/74 100 Nasal Cannula 3.0 01/24/18 18:45 65 20 129/75 100 Simple Mask 6.0 01/24/18 18:41 98.3 60 19 128/73 100 Simple Mask 6.0 98.3 01/24/18 18:37 208.9 62 16 100 01/24/18 16:08 98.0 94 20 144/72 99 208.4 Intake and Output 01/24/18 01/25/18 19:00 07:00 Intake Total 1500 ml 1110 ml Output Total 350 ml 400 ml Balance 1150 ml 710 ml Intake Oral 0 ml IV Total 1500 ml 1110 ml Output Urine Total 300 ml 400 ml Estimated Blood Loss 50 ml Laboratory Tests Test 01/25/18 07:10 White Blood Count 14.2 K/UL (4.8-10.8) H Red Blood Count 3.31 M/UL (4.20-5.40) L Hemoglobin 11.3 G/DL (12.0-16.0) L Hematocrit 32.4 % (37.0-47.0) L Mean Corpuscular Volume 98 FL (80-99) Mean Corpuscular Hemoglobin 34.3 PG (27.0-31.0) H Mean Corpuscular Hemoglobin Concent 35.0 G/DL (32.0-36.0) Red Cell Distribution Width 11.9 % (11.6-14.8) Platelet Count 246 K/UL (150-450) Mean Platelet Volume 5.7 FL (6.5-10.1) L Neutrophils (%) (Auto) % (45.0-75.0) Lymphocytes (%) (Auto) % (20.0-45.0) Monocytes (%) (Auto) % (1.0-10.0) Eosinophils (%) (Auto) % (0.0-3.0) Basophils (%) (Auto) % (0.0-2.0) Differential Total Cells Counted 100 Neutrophils % (Manual) 86 % (45-75) H Lymphocytes % (Manual) 8 % (20-45) L Monocytes % (Manual) 5 % (1-10) Eosinophils % (Manual) 0 % (0-3) Basophils % (Manual) 0 % (0-2) Band Neutrophils 1 % (0-8) Platelet Estimate Adequate Platelet Morphology Normal Red Blood Cell Morphology Normal Activated Partial Thromboplast Time 30 SEC (23-33) Sodium Level 138 MMOL/L (136-145) Potassium Level 4.0 MMOL/L (3.5-5.1) Chloride Level 106 MMOL/L (98-107) Carbon Dioxide Level 23 MMOL/L (21-32) Anion Gap 9 mmol/L (5-15) Blood Urea Nitrogen 8 mg/dL (7-18) Creatinine 0.9 MG/DL (0.55-1.30) # Estimat Glomerular Filtration Rate > 60 mL/min (>60) Glucose Level 112 MG/DL (74-106) H Calcium Level 8.1 MG/DL (8.5-10.1) L Total Bilirubin 0.5 MG/DL (0.2-1.0) Aspartate Amino Transf (AST/SGOT) 16 U/L (15-37) Alanine Aminotransferase (ALT/SGPT) 13 U/L (12-78) Alkaline Phosphatase 44 U/L (46-116) L Total Protein 6.0 G/DL (6.4-8.2) L Albumin 2.4 G/DL (3.4-5.0) L Globulin 3.6 g/dL Albumin/Globulin Ratio 0.7 (1.0-2.7) L Amylase Level 54 U/L (25-115) Lipase 78 U/L (73-393) Height (Feet): 5 Height (Inches): 7.00 Weight (Pounds): 208 Medications Current Medications Medications (Trade) Dose Ordered Sig/Evelyn Route PRN Reason Start Time Stop Time Status Last Admin Dose Admin Acetaminophen (Tylenol) 650 mg Q4H PRN ORAL fever 01/24/18 15:30 02/23/18 15:29 Acetaminophen (Tylenol) 650 mg Q4H PRN RECTAL FEVER 01/24/18 18:45 02/23/18 18:44 Al Hydroxide/Mg Hydroxide (Mylanta II) 30 ml Q6H PRN ORAL dyspepsia 01/24/18 15:30 02/23/18 15:29 Ceftriaxone Sodium 1 gm/ Sodium Chloride 110 ml @ 220 mls/hr Q24H IVPB 01/25/18 15:00 02/01/18 14:59 01/25/18 15:28 Dextrose (Dextrose 50%) STAT PRN IV Hypoglycemia 01/24/18 15:30 02/23/18 15:29 Dextrose (Dextrose 50%) STAT PRN IV Hypoglycemia 01/25/18 10:15 02/24/18 10:14 Dextrose/ Electrolytes 1,000 ml @ 100 mls/hr Q10H IV 01/24/18 19:30 02/23/18 19:29 01/25/18 05:40 Diphenhydramine HCl (Benadryl) 25 mg Q6H PRN ORAL Itching/Pruritis 01/24/18 15:30 02/23/18 15:29 Enoxaparin Sodium (Lovenox) 40 mg DAILY SUBQ 01/25/18 09:00 02/24/18 08:59 01/25/18 09:33 Iopamidol (Isovue-300 100ml) 100 ml NOW PRN INJ Radiology Procedure 01/24/18 11:00 Metoclopramide HCl (Reglan) 10 mg Q6H PRN IVP Nausea & Vomiting 01/24/18 18:45 02/23/18 18:44 Metronidazole 100 ml @ 100 mls/hr Q8H IVPB 01/25/18 15:30 02/01/18 15:29 Morphine Sulfate (Morphine Sulfate) 10 mg Q3H PRN IVP For Pain 01/25/18 13:47 02/01/18 13:46 01/25/18 15:28 Nitroglycerin (Ntg) 0.4 mg Q5M X 3 DOSES PRN SL Prn Chest Pain 01/24/18 15:30 02/23/18 15:29 Ondansetron HCl (Zofran) 4 mg Q6H PRN IVP Nausea & Vomiting 01/24/18 15:30 02/23/18 15:29 Pantoprazole (Protonix) 40 mg DAILY IVP 01/25/18 09:00 02/24/18 08:59 01/25/18 09:28 Polyethylene Glycol (Miralax) 17 gm HSPRN PRN ORAL Constipation 01/24/18 21:00 02/23/18 20:59 Temazepam (Restoril) 15 mg HSPRN PRN ORAL Insomnia 01/24/18 21:00 01/31/18 20:59 Bob Viveros M.D. January 25, 2018 15:53
[2018-01-25 16:00] VITALS: BP 127/74
--- NOTE | 2018-01-25 18:46 | Consultation ---
DATE OF CONSULTATION: 01/25/2018 INFECTIOUS DISEASE CONSULTATION CONSULTING PHYSICIAN: Russel Walekr M.D. REFERRING PHYSICIAN: James Murdock M.D. REASON FOR CONSULTATION: Evaluation of the patient for intra-abdominal sepsis/abscess, antibiotic management. HISTORY OF PRESENT ILLNESS: The patient is a 47-year-old female who was admitted to this medical center for abdominal pain, started on the day of admission. The patient's CT scan showed evidence of viscus perforation. White blood cells 13,000. The patient underwent exploratory laparotomy that showed perforated duodenal ulcer. Infectious Disease consultation has been requested for further evaluation of the patient's antibiotic management. PAST MEDICAL HISTORY: History of myomectomy. MEDICATIONS: The patient received a dose of Zosyn. ALLERGIES: No known drug allergies. SOCIAL HISTORY: Negative for alcohol, drug abuse, or smoking. REVIEW OF SYSTEMS: HEENT: No recent change in vision or hearing. PULMONARY: No cough. CARDIOVASCULAR: No chest pain. GASTROINTESTINAL/ABDOMEN: As mentioned above. The patient still has abdominal pain. GENITOURINARY: No dysuria. MUSCULOSKELETAL: No pain in extremities. PHYSICAL EXAMINATION: VITAL SIGNS: Temperature 98.1 degrees, blood pressure 120/73, pulse 70, and respiratory rate 18. HEENT: No pale conjunctivae. No icterus. NECK: No lymphadenopathy. CHEST: Clear. HEART: S1 and S2. ABDOMEN: Soft, tender to touch. The patient has a midline incision that is covered by dressing. The patient has a LATHA drain, has purulent bloody drainage. EXTREMITIES: No cyanosis at this time. NEUROLOGIC: Awake and alert. LABORATORY AND DIAGNOSTIC DATA: White blood cells 14, hemoglobin 11, and platelets 246. UA unremarkable. BUN 8 and creatinine 0.9. ALT, AST, and alkaline phosphatase unremarkable. CT of the abdomen with contrast with positive intraperitoneal air. ASSESSMENT: 1. The patient is a 47-year-old female with perforated duodenal ulcer status post postop (01/24/2018). 2. Leukocytosis. 3. Rule out bacteremia. PLAN: 1. We will start the patient on IV Rocephin and Flagyl ( clinical course). 2. Monitor CBC. 3. Monitor BMP. 4. Monitor blood cultures. 5. We will follow surgical recommendation. 6. Based on the patient's clinical course and labs, we will do further recommendations. Russel Walker M.D. DR: DALTON JOB#: [id number] CC:
[2018-01-25 20:26] VITALS: BP 127/65
--- NOTE | 2018-01-25 23:39 | Internal Med Progress Note ---
Subjective Physician Name James Murdock Attending Physician James Murdock MD Current Medications Medications (Trade) Dose Ordered Sig/Evelyn Route PRN Reason Start Time Stop Time Status Last Admin Dose Admin Acetaminophen (Tylenol) 650 mg Q4H PRN ORAL fever 01/24/18 15:30 02/23/18 15:29 Acetaminophen (Tylenol) 650 mg Q4H PRN RECTAL FEVER 01/24/18 18:45 02/23/18 18:44 Al Hydroxide/Mg Hydroxide (Mylanta II) 30 ml Q6H PRN ORAL dyspepsia 01/24/18 15:30 02/23/18 15:29 Ceftriaxone Sodium 1 gm/ Sodium Chloride 110 ml @ 220 mls/hr Q24H IVPB 01/25/18 15:00 02/01/18 14:59 01/25/18 15:28 Dextrose (Dextrose 50%) STAT PRN IV Hypoglycemia 01/24/18 15:30 02/23/18 15:29 Dextrose (Dextrose 50%) STAT PRN IV Hypoglycemia 01/25/18 10:15 02/24/18 10:14 Dextrose/ Electrolytes 1,000 ml @ 100 mls/hr Q10H IV 01/24/18 19:30 02/23/18 19:29 01/25/18 17:06 Diphenhydramine HCl (Benadryl) 25 mg Q6H PRN ORAL Itching/Pruritis 01/24/18 15:30 02/23/18 15:29 Enoxaparin Sodium (Lovenox) 40 mg DAILY SUBQ 01/25/18 09:00 02/24/18 08:59 01/25/18 09:33 Iopamidol (Isovue-300 100ml) 100 ml NOW PRN INJ Radiology Procedure 01/24/18 11:00 Metoclopramide HCl (Reglan) 10 mg Q6H PRN IVP Nausea & Vomiting 01/24/18 18:45 02/23/18 18:44 Metronidazole 100 ml @ 100 mls/hr Q8H IVPB 01/25/18 15:30 02/01/18 15:29 01/25/18 16:04 Morphine Sulfate (Morphine Sulfate) 10 mg Q3H PRN IVP For Pain 01/25/18 13:47 02/01/18 13:46 01/25/18 21:55 Nitroglycerin (Ntg) 0.4 mg Q5M X 3 DOSES PRN SL Prn Chest Pain 01/24/18 15:30 02/23/18 15:29 Ondansetron HCl (Zofran) 4 mg Q6H PRN IVP Nausea & Vomiting 01/24/18 15:30 02/23/18 15:29 Pantoprazole (Protonix) 40 mg DAILY IVP 01/25/18 09:00 02/24/18 08:59 01/25/18 09:28 Polyethylene Glycol (Miralax) 17 gm HSPRN PRN ORAL Constipation 01/24/18 21:00 02/23/18 20:59 Temazepam (Restoril) 15 mg HSPRN PRN ORAL Insomnia 01/24/18 21:00 01/31/18 20:59 Allergies: Coded Allergies: No Known Allergies (Unverified , 01/24/18) Subjective awake, alert, responsive, NAD, C/O severe abdominal pain and cramps Objective Last Vital Signs Date Time Temp Pulse Resp B/P (MAP) Pulse Ox O2 Delivery O2 Flow Rate FiO2 01/25/18 20:26 98.2 65 18 127/65 99 98.2 01/25/18 16:00 Nasal Cannula 3.0 Laboratory Tests Test 01/25/18 07:10 White Blood Count 14.2 K/UL (4.8-10.8) H Red Blood Count 3.31 M/UL (4.20-5.40) L Hemoglobin 11.3 G/DL (12.0-16.0) L Hematocrit 32.4 % (37.0-47.0) L Mean Corpuscular Volume 98 FL (80-99) Mean Corpuscular Hemoglobin 34.3 PG (27.0-31.0) H Mean Corpuscular Hemoglobin Concent 35.0 G/DL (32.0-36.0) Red Cell Distribution Width 11.9 % (11.6-14.8) Platelet Count 246 K/UL (150-450) Mean Platelet Volume 5.7 FL (6.5-10.1) L Neutrophils (%) (Auto) % (45.0-75.0) Lymphocytes (%) (Auto) % (20.0-45.0) Monocytes (%) (Auto) % (1.0-10.0) Eosinophils (%) (Auto) % (0.0-3.0) Basophils (%) (Auto) % (0.0-2.0) Differential Total Cells Counted 100 Neutrophils % (Manual) 86 % (45-75) H Lymphocytes % (Manual) 8 % (20-45) L Monocytes % (Manual) 5 % (1-10) Eosinophils % (Manual) 0 % (0-3) Basophils % (Manual) 0 % (0-2) Band Neutrophils 1 % (0-8) Platelet Estimate Adequate Platelet Morphology Normal Red Blood Cell Morphology Normal Activated Partial Thromboplast Time 30 SEC (23-33) Sodium Level 138 MMOL/L (136-145) Potassium Level 4.0 MMOL/L (3.5-5.1) Chloride Level 106 MMOL/L (98-107) Carbon Dioxide Level 23 MMOL/L (21-32) Anion Gap 9 mmol/L (5-15) Blood Urea Nitrogen 8 mg/dL (7-18) Creatinine 0.9 MG/DL (0.55-1.30) # Estimat Glomerular Filtration Rate > 60 mL/min (>60) Glucose Level 112 MG/DL (74-106) H Calcium Level 8.1 MG/DL (8.5-10.1) L Total Bilirubin 0.5 MG/DL (0.2-1.0) Aspartate Amino Transf (AST/SGOT) 16 U/L (15-37) Alanine Aminotransferase (ALT/SGPT) 13 U/L (12-78) Alkaline Phosphatase 44 U/L (46-116) L Total Protein 6.0 G/DL (6.4-8.2) L Albumin 2.4 G/DL (3.4-5.0) L Globulin 3.6 g/dL Albumin/Globulin Ratio 0.7 (1.0-2.7) L Amylase Level 54 U/L (25-115) Lipase 78 U/L (73-393) Intake and Output 01/24/18 01/25/18 19:00 07:00 Intake Total 1500 ml 1110 ml Output Total 350 ml 400 ml Balance 1150 ml 710 ml Intake Oral 0 ml IV Total 1500 ml 1110 ml Output Urine Total 300 ml 400 ml Estimated Blood Loss 50 ml Objective General: No acute distress, awake and alert HEENT: NCAT, sclera anicteric, PERRL, EOMI. + NGT. Neck: Supple, no significant jugular venous distention, Lungs: Good inspiratory effort, clear to auscultation bilaterally, no Wheeze or Rales. Heart: Regular rate and rhythm, normal S1/S2, no murmurs Abdomen: soft, Generalized tenderness, nondistended. Midline surgical incision intact dressing with RLQ LATHA tube. Extremities: No Cyanosis , clubbing or edema. Neuro: A&O x 3, Able to move all extremities Skin: warm, no rashes or lesions Psych: Normal mood and affect Assessment/Plan Assessment/Plan 1. Abdominal pain most likely due to Perforated duodenal ulcer s/p Exploratory laparotomy, gastrorrhaphy with Grover patch (01/24/2018). 2. Leukocytosis 3. Dehydration. Plan: NPO except med's NGT to intermitted suction pain medication Protonix IV Abx: Rocephin and Flagyl. SCD Full code. James Murdock MD January 25, 2018 23:39
[2018-01-26 00:06] VITALS: BP 127/64
[2018-01-26] MEDS: D5 1/2NS w/KCl 20mEq 1,000 ML IV SCH ×3 (00:32→21:20)
[2018-01-26] MEDS: Morphine Sulfate 4mg/ml Inj IVP PRN ×7 (00:51→21:21)
[2018-01-26 04:38] VITALS: BP 126/73
--- NOTE | 2018-01-26 06:31 | History and Physical Report ---
DATE OF ADMISSION: 01/24/2018 NOTE: POOR AUDIO CHIEF COMPLAINT: Abdominal pain. HISTORY OF PRESENT ILLNESS: This is a 47-year-old female with past medical history significant for myomectomy in 1999 as well as the left foot bunionectomy, who presented to the hospital complaining about abdominal pain since morning, located mostly in the epigastric area, tender to touch. The patient said that the pain is associated with nausea and vomiting. She denies any similar symptoms in the past. She denies any history of peptic ulcer or epigastric gastritis. She denies consumption of aspirin, Motrin, or steroids; however, she has been under a lot of stress. Shortly after initial evaluation in the emergency, the patient was confirmed to have intraperitoneal air due to the perforated viscus on CT scan of the abdomen, and subsequently the patient was taken to the OR by Dr. Mayank Owusu for possible repair and further therapy. Shortly after initial evaluation in the emergency, the patient was admitted to the hospital with a perforated viscus. PAST MEDICAL HISTORY/PAST SURGICAL HISTORY: As above, history of myomectomy in 1999 as well as the left foot bunionectomy. Denies any history of diabetes, high blood pressure, dyslipidemia, or renal disease. MEDICATIONS: Medications at home significant for Soma and Vicodin occasionally. SOCIAL HISTORY: The patient is single without children. Unemployed. No smoking, alcohol, or drugs. FAMILY HISTORY: Noncontributory. REVIEW OF SYSTEMS: Complained of back pain. Denies any hemoptysis or hematochezia. Complained of nausea, vomiting, and weakness. Denies any loss of consciousness. Denies any suicidal or homicidal ideation. PHYSICAL EXAMINATION: VITAL SIGNS: On admission, significant for temperature 98.4 degrees, pulse of 80, respirations 16, and blood pressure 137/72. GENERAL: The patient is awake, responsive, in no acute distress. HEAD AND NECK: Pupils are equal and reactive to light. Extraocular movements intact. Neck was supple. No JVD. The patient has NG tube to intermittent suction. LUNGS: Clear. No wheezing or rales. HEART: S1 and S2. Tachycardic. ABDOMEN: Tender. No rebound tenderness. No fluid shift. Midline surgical incision was noted with dressing, and LATHA drainage on the right side was noted. EXTREMITIES: No cyanosis, clubbing, or edema. NEUROLOGIC: Cranial nerves II through XII grossly intact. Motor strength is 5/5 in all extremities. LABORATORY AND DIAGNOSTIC DATA: On admission, WBC of 13, hemoglobin of 12, hematocrit 35, and platelet is 277. Sodium 138, potassium 2.7, chloride 105, bicarbonate 22, BUN 9, creatinine 0.5 and glucose 97. Troponin 0.00. Urinalysis is protein is +1, +3 ketones, +1 leukocytes, moderate urine mucosa, and negative beta-HCG. Chest x-ray, left basilar atelectasis with no acute process. CT of abdomen and pelvis shows that the patient has positive free intraperitoneal air which is consistent with perforation and hollow viscus, presence of what appeared to be communication between the gastric antral and duodenal bulb suggestive of a gastric antral or duodenal bulb ulceration as etiology although this cannot be stated for certain. Associated free intraperitoneal fluid demonstrated prominent left upper quadrant small bowel loops, enlarged uterus with multiple fibroids, bilateral pleural effusion associated with bilateral compressive atelectasis, lumbar scoliosis secondary to degenerative spondylosis. Too small to characterize subcentimeter left renal lesions. ASSESSMENT: 1. Abdominal pain with intraperitoneal air, most likely secondary to the perforated viscus. 2. Lumbar scoliosis with degenerative spondylosis. 3. Dehydration. 4. Leukocytosis. 5. Hypokalemia. PLAN: We will follow up with Dr. Owusu's recommendation, consider consultation with Dr. Lyons, Pulmonary Critical Care and Dr. Walker from Infectious Disease as well as Dr. Viveros from Psychiatry. We will monitor laboratory. Broad-spectrum antibiotics with Rocephin and Flagyl. Code status is Full Code. DVT prophylaxis with SCDs. James Murdock M.D. DR: CHANDA JOB#: [id number] CC: AWILDA
--- NOTE | 2018-01-26 07:50 | Pulmonology Progress Note ---
Assessment/Plan Assessment/Plan ASSESSMENT Perforated duodenal ulcer s/p 01/24 exploratory laparotomy, gastrorrhaphy with Grover patch PLAN OF CARE Med Surg floor NPO IV fluids Pain management NG tube to suction, monitor output Pigtail drain, monitor output Antiemetics as needed DVT, GI prophylaxis Empiric antibiotics, ID follows supplemental oxygen prn to keep pulse oximetry above 92% monitor renal parameters, electrolytes, correct electrolytes as needed OOB as tolerated IS at the bedside , teach and encourage to use while in the bed case discussed and evaluated by supervising physician Subjective Allergies: Coded Allergies: No Known Allergies (Unverified , 01/24/18) Subjective c/o abd pain not passing gas afebrile, no leukocytosis oximetry stable on oxygen via nasal cannula Objective Last 24 Hour Vital Signs Date Time Temp Pulse Resp B/P (MAP) Pulse Ox O2 Delivery O2 Flow Rate FiO2 01/26/18 04:38 97.7 56 18 126/73 94 97.7 01/26/18 00:06 98.1 63 19 127/64 98 98.1 01/25/18 20:26 98.2 65 18 127/65 99 98.2 01/25/18 16:00 98.0 60 20 127/74 98 98.0 60 01/25/18 16:00 98.0 60 18 127/74 98 Nasal Cannula 3.0 98.0 01/25/18 13:59 208.6 70 19 97 01/25/18 12:00 98.1 70 19 128/73 97 Nasal Cannula 3.0 98.1 01/25/18 08:00 98.1 82 20 128/76 99 98.1 Intake and Output 01/25/18 01/26/18 19:00 07:00 Intake Total 1010 ml Output Total 475 ml 425 ml Balance 535 ml -425 ml IV Total 1010 ml Output Urine Total 300 ml 425 ml Gastric Drainage Total 50 ml Drainage Total 125 ml General Appearance: no acute distress HEENT: normocephalic, atraumatic, anicteric, other - NG tube Respiratory/Chest: lungs clear, no respiratory distress, no accessory muscle use Cardiovascular: normal rate Abdomen: absent bowel sounds, other - dressing C/D/I,drain Extremities: no edema, pedal pulses normal Neurologic/Psychiatric: alert, oriented x 3, responsive Musculoskeletal: normal muscle bulk Laboratory Tests 01/26/18 06:52: White Blood Count [Pending], Red Blood Count [Pending], Hemoglobin [Pending], Hematocrit [Pending], Mean Corpuscular Volume [Pending], Mean Corpuscular Hemoglobin [Pending], Mean Corpuscular Hemoglobin Concent [Pending], Red Cell Distribution Width [Pending], Platelet Count [Pending], Mean Platelet Volume [ Pending], Neutrophils (%) (Auto) [Pending], Lymphocytes (%) (Auto) [Pending], Monocytes (%) (Auto) [Pending], Eosinophils (%) (Auto) [Pending], Basophils (%) (Auto) [Pending], Sodium Level [Pending], Potassium Level [Pending], Chloride Level [Pending], Carbon Dioxide Level [Pending], Blood Urea Nitrogen [Pending], Creatinine [Pending], Estimat Glomerular Filtration Rate [Pending], Glucose Level [Pending], Calcium Level [Pending] Current Medications Medications (Trade) Dose Ordered Sig/Evelyn Route PRN Reason Start Time Stop Time Status Last Admin Dose Admin Acetaminophen (Tylenol) 650 mg Q4H PRN ORAL fever 01/24/18 15:30 02/23/18 15:29 Acetaminophen (Tylenol) 650 mg Q4H PRN RECTAL FEVER 01/24/18 18:45 02/23/18 18:44 Al Hydroxide/Mg Hydroxide (Mylanta II) 30 ml Q6H PRN ORAL dyspepsia 01/24/18 15:30 02/23/18 15:29 Ceftriaxone Sodium 1 gm/ Sodium Chloride 110 ml @ 220 mls/hr Q24H IVPB 01/25/18 15:00 02/01/18 14:59 01/25/18 15:28 Dextrose (Dextrose 50%) STAT PRN IV Hypoglycemia 01/24/18 15:30 02/23/18 15:29 Dextrose (Dextrose 50%) STAT PRN IV Hypoglycemia 01/25/18 10:15 02/24/18 10:14 Dextrose/ Electrolytes 1,000 ml @ 100 mls/hr Q10H IV 01/24/18 19:30 02/23/18 19:29 01/26/18 00:32 Diphenhydramine HCl (Benadryl) 25 mg Q6H PRN ORAL Itching/Pruritis 01/24/18 15:30 02/23/18 15:29 Enoxaparin Sodium (Lovenox) 40 mg DAILY SUBQ 01/25/18 09:00 02/24/18 08:59 01/25/18 09:33 Iopamidol (Isovue-300 100ml) 100 ml NOW PRN INJ Radiology Procedure 01/24/18 11:00 Metoclopramide HCl (Reglan) 10 mg Q6H PRN IVP Nausea & Vomiting 01/24/18 18:45 02/23/18 18:44 Metronidazole 100 ml @ 100 mls/hr Q8H IVPB 01/25/18 15:30 02/01/18 15:29 01/26/18 06:41 Morphine Sulfate (Morphine Sulfate) 10 mg Q3H PRN IVP For Pain 01/25/18 13:47 02/01/18 13:46 01/26/18 04:00 Nitroglycerin (Ntg) 0.4 mg Q5M X 3 DOSES PRN SL Prn Chest Pain 01/24/18 15:30 02/23/18 15:29 Ondansetron HCl (Zofran) 4 mg Q6H PRN IVP Nausea & Vomiting 01/24/18 15:30 02/23/18 15:29 Pantoprazole (Protonix) 40 mg DAILY IVP 01/25/18 09:00 02/24/18 08:59 01/25/18 09:28 Polyethylene Glycol (Miralax) 17 gm HSPRN PRN ORAL Constipation 01/24/18 21:00 02/23/18 20:59 Temazepam (Restoril) 15 mg HSPRN PRN ORAL Insomnia 01/24/18 21:00 01/31/18 20:59 Teresita Lancaster NP January 26, 2018 07:50
[2018-01-26 07:52] LABS: BASOPHILS % (AUTO) 0.6 % (0.0-2.0); EOSINOPHILS % (AUTO) 0.4 % (0.0-3.0); HEMOGLOBIN 10.8 G/DL (12.0-16.0); LYMPHOCYTES % (AUTO) 18.9 % (20.0-45.0); MEAN CORPUSCULAR VOLUME 99 FL (80-99); MONOCYTES % (AUTO) 10.6 % (1.0-10.0); NEUTROPHILS % (AUTO) 69.5 % (45.0-75.0); PLATELET COUNT 240 K/UL (150-450); RED BLOOD COUNT 3.14 M/UL (4.20-5.40); RED CELL DISTRIBUTION WIDTH 12.2 % (11.6-14.8); WHITE BLOOD COUNT 10.4 K/UL (4.8-10.8)
[2018-01-26 08:00] VITALS: BP 128/70
[2018-01-26 08:35] LABS: ANION GAP 6 mmol/L (5-15); BLOOD UREA NITROGEN 7 mg/dL (7-18); CALCIUM 8.6 MG/DL (8.5-10.1); CARBON DIOXIDE 26 MMOL/L (21-32); CHLORIDE 107 MMOL/L (98-107); CREATININE 0.7 MG/DL (0.55-1.30); POTASSIUM 3.8 MMOL/L (3.5-5.1); SODIUM 139 MMOL/L (136-145)
[2018-01-26] MEDS: Pantoprazole Inj IVP SCH (08:37)
[2018-01-26] MEDS: Enoxaparin 40mg Inj SUBQ SCH (08:54)
[2018-01-26 12:00] VITALS: BP 120/77
--- NOTE | 2018-01-26 12:05 | Infectious Diseases Prog Note ---
Assessment/Plan Assessment/Plan ASSESSMENT: The patient is a 47-year-old female SP perforated duodenal ulcer status post postop (01/24/2018) CT of the abdomen: positive intraperitoneal air Leukocytosis, SP Rule out bacteremia Hx of myomectomy PLAN: Cont patient on IV Rocephin and Flagyl d# 2 ( duration depend on the clinical course and removal of LATHA ) 01/24 SP Zosyn x 1 Monitor CBC. Monitor BMP. Monitor blood cultures. Surg following Subjective Allergies: Coded Allergies: No Known Allergies (Unverified , 01/24/18) Subjective comfortable Objective Vital Signs Last 24 Hour Vital Signs Date Time Temp Pulse Resp B/P (MAP) Pulse Ox O2 Delivery O2 Flow Rate FiO2 01/26/18 08:01 Nasal Cannula 3.0 01/26/18 08:00 98.2 69 20 128/70 98 98.2 69 01/26/18 04:38 97.7 56 18 126/73 94 97.7 01/26/18 00:06 98.1 63 19 127/64 98 98.1 01/25/18 20:26 98.2 65 18 127/65 99 98.2 01/25/18 16:00 98.0 60 20 127/74 98 98.0 60 01/25/18 16:00 98.0 60 18 127/74 98 Nasal Cannula 3.0 98.0 01/25/18 13:59 208.6 70 19 97 Height (Feet): 5 Height (Inches): 7.00 Weight (Pounds): 208 HEENT: mucous membranes moist Respiratory/Chest: no respiratory distress Cardiovascular: regularly irregular Abdomen: non distended Laboratory Tests Test 01/26/18 06:52 White Blood Count 10.4 K/UL (4.8-10.8) Red Blood Count 3.14 M/UL (4.20-5.40) L Hemoglobin 10.8 G/DL (12.0-16.0) L Hematocrit 31.0 % (37.0-47.0) L Mean Corpuscular Volume 99 FL (80-99) Mean Corpuscular Hemoglobin 34.5 PG (27.0-31.0) H Mean Corpuscular Hemoglobin Concent 34.8 G/DL (32.0-36.0) Red Cell Distribution Width 12.2 % (11.6-14.8) Platelet Count 240 K/UL (150-450) Mean Platelet Volume 5.7 FL (6.5-10.1) L Neutrophils (%) (Auto) 69.5 % (45.0-75.0) Lymphocytes (%) (Auto) 18.9 % (20.0-45.0) L Monocytes (%) (Auto) 10.6 % (1.0-10.0) H Eosinophils (%) (Auto) 0.4 % (0.0-3.0) Basophils (%) (Auto) 0.6 % (0.0-2.0) Sodium Level 139 MMOL/L (136-145) Potassium Level 3.8 MMOL/L (3.5-5.1) Chloride Level 107 MMOL/L (98-107) Carbon Dioxide Level 26 MMOL/L (21-32) Anion Gap 6 mmol/L (5-15) Blood Urea Nitrogen 7 mg/dL (7-18) Creatinine 0.7 MG/DL (0.55-1.30) Estimat Glomerular Filtration Rate > 60 mL/min (>60) Glucose Level 97 MG/DL (74-106) Calcium Level 8.6 MG/DL (8.5-10.1) Current Medications Medications (Trade) Dose Ordered Sig/Evelyn Route PRN Reason Start Time Stop Time Status Last Admin Dose Admin Acetaminophen (Tylenol) 650 mg Q4H PRN ORAL fever 01/24/18 15:30 02/23/18 15:29 Acetaminophen (Tylenol) 650 mg Q4H PRN RECTAL FEVER 01/24/18 18:45 02/23/18 18:44 Al Hydroxide/Mg Hydroxide (Mylanta II) 30 ml Q6H PRN ORAL dyspepsia 01/24/18 15:30 02/23/18 15:29 Ceftriaxone Sodium 1 gm/ Sodium Chloride 110 ml @ 220 mls/hr Q24H IVPB 01/25/18 15:00 02/01/18 14:59 01/25/18 15:28 Dextrose (Dextrose 50%) STAT PRN IV Hypoglycemia 01/24/18 15:30 02/23/18 15:29 Dextrose (Dextrose 50%) STAT PRN IV Hypoglycemia 01/25/18 10:15 02/24/18 10:14 Dextrose/ Electrolytes 1,000 ml @ 100 mls/hr Q10H IV 01/24/18 19:30 02/23/18 19:29 01/26/18 11:31 Diphenhydramine HCl (Benadryl) 25 mg Q6H PRN ORAL Itching/Pruritis 01/24/18 15:30 02/23/18 15:29 Enoxaparin Sodium (Lovenox) 40 mg DAILY SUBQ 01/25/18 09:00 02/24/18 08:59 01/26/18 08:54 Iopamidol (Isovue-300 100ml) 100 ml NOW PRN INJ Radiology Procedure 01/24/18 11:00 Metoclopramide HCl (Reglan) 10 mg Q6H PRN IVP Nausea & Vomiting 01/24/18 18:45 02/23/18 18:44 Metronidazole 100 ml @ 100 mls/hr Q8H IVPB 01/25/18 15:30 02/01/18 15:29 01/26/18 06:41 Morphine Sulfate (Morphine Sulfate) 10 mg Q3H PRN IVP For Pain 01/25/18 13:47 02/01/18 13:46 01/26/18 11:31 Nitroglycerin (Ntg) 0.4 mg Q5M X 3 DOSES PRN SL Prn Chest Pain 01/24/18 15:30 02/23/18 15:29 Ondansetron HCl (Zofran) 4 mg Q6H PRN IVP Nausea & Vomiting 01/24/18 15:30 02/23/18 15:29 Pantoprazole (Protonix) 40 mg DAILY IVP 01/25/18 09:00 02/24/18 08:59 01/26/18 08:37 Polyethylene Glycol (Miralax) 17 gm HSPRN PRN ORAL Constipation 01/24/18 21:00 02/23/18 20:59 Temazepam (Restoril) 15 mg HSPRN PRN ORAL Insomnia 01/24/18 21:00 01/31/18 20:59 Russel Walker MD January 26, 2018 12:05
--- NOTE | 2018-01-26 12:28 | General Progress Note ---
Assessment/Plan Problem List: (1) Abdominal pain ICD Codes: R10.9 - Unspecified abdominal pain SNOMED: 70750031 (2) Perforated abdominal viscus Assessment/Plan perforated DU s/p surg post op care on ppi pain control Check for H.pylori serology diet orders oer surg Subjective ROS Limited/Unobtainable: Yes Allergies: Coded Allergies: No Known Allergies (Unverified , 01/24/18) Objective Last 24 Hour Vital Signs Date Time Temp Pulse Resp B/P (MAP) Pulse Ox O2 Delivery O2 Flow Rate FiO2 01/26/18 08:01 Nasal Cannula 3.0 01/26/18 08:00 98.2 69 20 128/70 98 98.2 69 01/26/18 04:38 97.7 56 18 126/73 94 97.7 01/26/18 00:06 98.1 63 19 127/64 98 98.1 01/25/18 20:26 98.2 65 18 127/65 99 98.2 01/25/18 16:00 98.0 60 20 127/74 98 98.0 60 01/25/18 16:00 98.0 60 18 127/74 98 Nasal Cannula 3.0 98.0 01/25/18 13:59 208.6 70 19 97 Intake and Output 01/25/18 01/26/18 19:00 07:00 Intake Total 1010 ml Output Total 475 ml 425 ml Balance 535 ml -425 ml IV Total 1010 ml Output Urine Total 300 ml 425 ml Gastric Drainage Total 50 ml Drainage Total 125 ml Laboratory Tests 01/26/18 06:52: White Blood Count 10.4, Red Blood Count 3.14L, Hemoglobin 10.8L, Hematocrit 31.0L, Mean Corpuscular Volume 99, Mean Corpuscular Hemoglobin 34.5H, Mean Corpuscular Hemoglobin Concent 34.8, Red Cell Distribution Width 12.2, Platelet Count 240, Mean Platelet Volume 5.7L, Neutrophils (%) (Auto) 69.5, Lymphocytes ( %) (Auto) 18.9L, Monocytes (%) (Auto) 10.6H, Eosinophils (%) (Auto) 0.4, Basophils (%) (Auto) 0.6, Sodium Level 139, Potassium Level 3.8, Chloride Level 107, Carbon Dioxide Level 26, Anion Gap 6, Blood Urea Nitrogen 7, Creatinine 0.7 , Estimat Glomerular Filtration Rate > 60, Glucose Level 97, Calcium Level 8.6 Height (Feet): 5 Height (Inches): 7.00 Weight (Pounds): 208 General Appearance: no apparent distress EENT: normal ENT inspection Neck: supple Cardiovascular: normal rate Respiratory/Chest: decreased breath sounds Abdomen: other - post surgical Extremities: non-tender Homar Byrd MD January 26, 2018 12:28
[2018-01-26] MEDS: cefTRIAXone 1 GM in NS 110 ML IVPB SCH (14:32)
--- NOTE | 2018-01-26 14:52 | Internal Med Progress Note ---
Subjective Physician Name Charles Jorgensen Attending Physician James Murdock MD Current Medications Medications (Trade) Dose Ordered Sig/Evelyn Route PRN Reason Start Time Stop Time Status Last Admin Dose Admin Acetaminophen (Tylenol) 650 mg Q4H PRN ORAL fever 01/24/18 15:30 02/23/18 15:29 Acetaminophen (Tylenol) 650 mg Q4H PRN RECTAL FEVER 01/24/18 18:45 02/23/18 18:44 Al Hydroxide/Mg Hydroxide (Mylanta II) 30 ml Q6H PRN ORAL dyspepsia 01/24/18 15:30 02/23/18 15:29 Ceftriaxone Sodium 1 gm/ Sodium Chloride 110 ml @ 220 mls/hr Q24H IVPB 01/25/18 15:00 02/01/18 14:59 01/26/18 14:32 Dextrose (Dextrose 50%) STAT PRN IV Hypoglycemia 01/24/18 15:30 02/23/18 15:29 Dextrose (Dextrose 50%) STAT PRN IV Hypoglycemia 01/25/18 10:15 02/24/18 10:14 Dextrose/ Electrolytes 1,000 ml @ 100 mls/hr Q10H IV 01/24/18 19:30 02/23/18 19:29 01/26/18 11:31 Diphenhydramine HCl (Benadryl) 25 mg Q6H PRN ORAL Itching/Pruritis 01/24/18 15:30 02/23/18 15:29 Enoxaparin Sodium (Lovenox) 40 mg DAILY SUBQ 01/25/18 09:00 02/24/18 08:59 01/26/18 08:54 Iopamidol (Isovue-300 100ml) 100 ml NOW PRN INJ Radiology Procedure 01/24/18 11:00 Metoclopramide HCl (Reglan) 10 mg Q6H PRN IVP Nausea & Vomiting 01/24/18 18:45 02/23/18 18:44 Metronidazole 100 ml @ 100 mls/hr Q8H IVPB 01/25/18 15:30 02/01/18 15:29 01/26/18 06:41 Morphine Sulfate (Morphine Sulfate) 10 mg Q3H PRN IVP For Pain 01/25/18 13:47 02/01/18 13:46 01/26/18 14:33 Nitroglycerin (Ntg) 0.4 mg Q5M X 3 DOSES PRN SL Prn Chest Pain 01/24/18 15:30 02/23/18 15:29 Ondansetron HCl (Zofran) 4 mg Q6H PRN IVP Nausea & Vomiting 01/24/18 15:30 02/23/18 15:29 Pantoprazole (Protonix) 40 mg DAILY IVP 01/25/18 09:00 02/24/18 08:59 01/26/18 08:37 Polyethylene Glycol (Miralax) 17 gm HSPRN PRN ORAL Constipation 01/24/18 21:00 02/23/18 20:59 Temazepam (Restoril) 15 mg HSPRN PRN ORAL Insomnia 01/24/18 21:00 01/31/18 20:59 Allergies: Coded Allergies: No Known Allergies (Unverified , 01/24/18) Objective Last Vital Signs Date Time Temp Pulse Resp B/P (MAP) Pulse Ox O2 Delivery O2 Flow Rate FiO2 01/26/18 12:00 98.0 70 12 120/77 97 98.0 01/26/18 08:01 Nasal Cannula 3.0 Laboratory Tests Test 01/26/18 06:52 White Blood Count 10.4 K/UL (4.8-10.8) Red Blood Count 3.14 M/UL (4.20-5.40) L Hemoglobin 10.8 G/DL (12.0-16.0) L Hematocrit 31.0 % (37.0-47.0) L Mean Corpuscular Volume 99 FL (80-99) Mean Corpuscular Hemoglobin 34.5 PG (27.0-31.0) H Mean Corpuscular Hemoglobin Concent 34.8 G/DL (32.0-36.0) Red Cell Distribution Width 12.2 % (11.6-14.8) Platelet Count 240 K/UL (150-450) Mean Platelet Volume 5.7 FL (6.5-10.1) L Neutrophils (%) (Auto) 69.5 % (45.0-75.0) Lymphocytes (%) (Auto) 18.9 % (20.0-45.0) L Monocytes (%) (Auto) 10.6 % (1.0-10.0) H Eosinophils (%) (Auto) 0.4 % (0.0-3.0) Basophils (%) (Auto) 0.6 % (0.0-2.0) Sodium Level 139 MMOL/L (136-145) Potassium Level 3.8 MMOL/L (3.5-5.1) Chloride Level 107 MMOL/L (98-107) Carbon Dioxide Level 26 MMOL/L (21-32) Anion Gap 6 mmol/L (5-15) Blood Urea Nitrogen 7 mg/dL (7-18) Creatinine 0.7 MG/DL (0.55-1.30) Estimat Glomerular Filtration Rate > 60 mL/min (>60) Glucose Level 97 MG/DL (74-106) Calcium Level 8.6 MG/DL (8.5-10.1) Intake and Output 01/25/18 01/26/18 19:00 07:00 Intake Total 1010 ml Output Total 475 ml 425 ml Balance 535 ml -425 ml IV Total 1010 ml Output Urine Total 300 ml 425 ml Gastric Drainage Total 50 ml Drainage Total 125 ml Assessment/Plan Assessment/Plan Assessment/Plan Assessment/Plan 1. Perforated duodenal ulcer s/p Exploratory laparotomy 01/24/18-see surgery note. 2. Abdominal pain Plan: NPO except med's NGT tube pain medication Protonix IV Abx: Rocephin and Flagyl. SCD Full code. Charles Jorgensen MD January 26, 2018 14:52
--- NOTE | 2018-01-26 14:54 | General Surgery Progress Note ---
General Surgery-Progress Note Subjective Procedure Performed exploratory laparotomy , Gastrorrhaphy with sandra patch Symptoms: improved, pain same Additional Comments patient does not move she even ask the nurses to move her in bed Objective Last 24 Hour Vital Signs Date Time Temp Pulse Resp B/P (MAP) Pulse Ox O2 Delivery O2 Flow Rate FiO2 01/26/18 12:00 98.0 70 12 120/77 97 98.0 01/26/18 08:01 Nasal Cannula 3.0 01/26/18 08:00 98.2 69 20 128/70 98 98.2 69 01/26/18 04:38 97.7 56 18 126/73 94 97.7 01/26/18 00:06 98.1 63 19 127/64 98 98.1 01/25/18 20:26 98.2 65 18 127/65 99 98.2 01/25/18 16:00 98.0 60 20 127/74 98 98.0 60 01/25/18 16:00 98.0 60 18 127/74 98 Nasal Cannula 3.0 98.0 I&O Intake and Output 01/25/18 01/26/18 19:00 07:00 Intake Total 1010 ml Output Total 475 ml 425 ml Balance 535 ml -425 ml IV Total 1010 ml Output Urine Total 300 ml 425 ml Gastric Drainage Total 50 ml Drainage Total 125 ml Dressing: dry Drains: elena Respiratory: clear Abdomen: soft, flat, tenderness, absent bowel sounds Extremities: no tenderness Laboratory Tests Test 01/26/18 06:52 White Blood Count 10.4 K/UL (4.8-10.8) Red Blood Count 3.14 M/UL (4.20-5.40) L Hemoglobin 10.8 G/DL (12.0-16.0) L Hematocrit 31.0 % (37.0-47.0) L Mean Corpuscular Volume 99 FL (80-99) Mean Corpuscular Hemoglobin 34.5 PG (27.0-31.0) H Mean Corpuscular Hemoglobin Concent 34.8 G/DL (32.0-36.0) Red Cell Distribution Width 12.2 % (11.6-14.8) Platelet Count 240 K/UL (150-450) Mean Platelet Volume 5.7 FL (6.5-10.1) L Neutrophils (%) (Auto) 69.5 % (45.0-75.0) Lymphocytes (%) (Auto) 18.9 % (20.0-45.0) L Monocytes (%) (Auto) 10.6 % (1.0-10.0) H Eosinophils (%) (Auto) 0.4 % (0.0-3.0) Basophils (%) (Auto) 0.6 % (0.0-2.0) Sodium Level 139 MMOL/L (136-145) Potassium Level 3.8 MMOL/L (3.5-5.1) Chloride Level 107 MMOL/L (98-107) Carbon Dioxide Level 26 MMOL/L (21-32) Anion Gap 6 mmol/L (5-15) Blood Urea Nitrogen 7 mg/dL (7-18) Creatinine 0.7 MG/DL (0.55-1.30) Estimat Glomerular Filtration Rate > 60 mL/min (>60) Glucose Level 97 MG/DL (74-106) Calcium Level 8.6 MG/DL (8.5-10.1) Assessment Post-op Diagnosis perforated duodenal ulcer Plan Additional Comments continue current treatment Mayank Owusu MD January 26, 2018 14:54
[2018-01-26] MEDS ORDERED: Tubing IV Secondary IV ONE (15:25)
[2018-01-26 16:00] VITALS: BP 145/82
[2018-01-26] MEDS: Metoclopramide 10mg/2ml Inj IVP PRN (18:29)
[2018-01-26 20:13] VITALS: BP 143/81
--- NOTE | 2018-01-26 22:49 | General Progress Note ---
Assessment/Plan Status: stable Assessment/Plan anxiety pain med dependence rec change it to long acting opioids like methadone -ssris Subjective Date patient seen: January 26, 2018 Neurologic/Psychiatric: Reports: anxiety, depressed, emotional problems Allergies: Coded Allergies: No Known Allergies (Unverified , 01/24/18) Subjective the pt c/o does not appear in pain anxiety Objective Last 24 Hour Vital Signs Date Time Temp Pulse Resp B/P (MAP) Pulse Ox O2 Delivery O2 Flow Rate FiO2 01/26/18 20:13 99.0 77 20 143/81 97 Nasal Cannula 2.0 99.0 01/26/18 16:00 98.0 85 20 145/82 98 98.0 01/26/18 12:01 Nasal Cannula 2.0 01/26/18 12:00 98.0 70 12 120/77 97 98.0 01/26/18 08:01 Nasal Cannula 3.0 01/26/18 08:00 98.2 69 20 128/70 98 98.2 69 01/26/18 04:38 97.7 56 18 126/73 94 97.7 01/26/18 00:06 98.1 63 19 127/64 98 98.1 Intake and Output 01/25/18 01/26/18 19:00 07:00 Intake Total 1010 ml Output Total 475 ml 425 ml Balance 535 ml -425 ml IV Total 1010 ml Output Urine Total 300 ml 425 ml Gastric Drainage Total 50 ml Drainage Total 125 ml Laboratory Tests 01/26/18 06:52: White Blood Count 10.4, Red Blood Count 3.14L, Hemoglobin 10.8L, Hematocrit 31.0L, Mean Corpuscular Volume 99, Mean Corpuscular Hemoglobin 34.5H, Mean Corpuscular Hemoglobin Concent 34.8, Red Cell Distribution Width 12.2, Platelet Count 240, Mean Platelet Volume 5.7L, Neutrophils (%) (Auto) 69.5, Lymphocytes ( %) (Auto) 18.9L, Monocytes (%) (Auto) 10.6H, Eosinophils (%) (Auto) 0.4, Basophils (%) (Auto) 0.6, Sodium Level 139, Potassium Level 3.8, Chloride Level 107, Carbon Dioxide Level 26, Anion Gap 6, Blood Urea Nitrogen 7, Creatinine 0.7 , Estimat Glomerular Filtration Rate > 60, Glucose Level 97, Calcium Level 8.6 Height (Feet): 5 Height (Inches): 7.00 Weight (Pounds): 208 General Appearance: no apparent distress, alert Neurologic: oriented x 3, responsive, depressed affect Bob Viveros M.D. January 26, 2018 22:49
[2018-01-27] MEDS: Morphine Sulfate 4mg/ml Inj IVP PRN ×8 (00:47→21:37)
[2018-01-27 00:54] VITALS: BP 141/70
[2018-01-27 04:00] VITALS: BP 147/74
[2018-01-27] MEDS: D5 1/2NS w/KCl 20mEq 1,000 ML IV SCH ×2 (06:34→15:32)
[2018-01-27 08:00] VITALS: BP 127/69
[2018-01-27 08:40] LABS: BASOPHILS % (AUTO) 0.7 % (0.0-2.0); EOSINOPHILS % (AUTO) 2.7 % (0.0-3.0); HEMATOCRIT 30.9 % (37.0-47.0); HEMOGLOBIN 10.8 G/DL (12.0-16.0); LYMPHOCYTES % (AUTO) 25.5 % (20.0-45.0); MEAN CORPUSCULAR VOLUME 99 FL (80-99); MONOCYTES % (AUTO) 7.3 % (1.0-10.0); NEUTROPHILS % (AUTO) 63.7 % (45.0-75.0); PLATELET COUNT 274 K/UL (150-450); RED BLOOD COUNT 3.12 M/UL (4.20-5.40); RED CELL DISTRIBUTION WIDTH 12.1 % (11.6-14.8); WHITE BLOOD COUNT 8.1 K/UL (4.8-10.8)
[2018-01-27 09:11] LABS: ALANINE AMINOTRANSFERASE 10 U/L (12-78); ALBUMIN 2.2 G/DL (3.4-5.0); ALBUMIN/GLOBULIN RATIO 0.5 (1.0-2.7); ALKALINE PHOSPHATASE 42 U/L (46-116); ANION GAP 5 mmol/L (5-15); ASPARTATE AMINO TRANSFERASE 16 U/L (15-37); BILIRUBIN,TOTAL 0.6 MG/DL (0.2-1.0); BLOOD UREA NITROGEN 6 mg/dL (7-18); CALCIUM 8.5 MG/DL (8.5-10.1); CARBON DIOXIDE 29 MMOL/L (21-32); CHLORIDE 104 MMOL/L (98-107); CREATININE 0.6 MG/DL (0.55-1.30); POTASSIUM 3.5 MMOL/L (3.5-5.1); SODIUM 138 MMOL/L (136-145)
[2018-01-27] MEDS: Metoclopramide 10mg/2ml Inj IVP PRN ×2 (09:26→15:32)
[2018-01-27] MEDS: Pantoprazole Inj IVP SCH (09:26)
[2018-01-27] MEDS: Enoxaparin 40mg Inj SUBQ SCH (09:37)
--- NOTE | 2018-01-27 09:50 | General Progress Note ---
Assessment/Plan Problem List: (1) Abdominal pain ICD Codes: R10.9 - Unspecified abdominal pain SNOMED: 57186335 (2) Perforated abdominal viscus Assessment/Plan perforated DU s/p surg post op care on ppi pain control fu H.pylori serology npo NGT Subjective ROS Limited/Unobtainable: Yes Allergies: Coded Allergies: No Known Allergies (Unverified , 01/24/18) Subjective c/o sore throat Objective Last 24 Hour Vital Signs Date Time Temp Pulse Resp B/P (MAP) Pulse Ox O2 Delivery O2 Flow Rate FiO2 01/27/18 08:00 98.1 64 20 127/69 97 98.1 01/27/18 04:00 97.7 69 20 147/74 100 Nasal Cannula 2.0 97.7 01/27/18 00:54 97.9 65 20 141/70 100 Nasal Cannula 2.0 97.9 01/26/18 20:13 99.0 77 20 143/81 97 Nasal Cannula 2.0 99.0 01/26/18 16:00 98.0 85 20 145/82 98 98.0 01/26/18 12:01 Nasal Cannula 2.0 01/26/18 12:00 98.0 70 12 120/77 97 98.0 Intake and Output 01/26/18 01/27/18 19:00 07:00 Intake Total 910 ml Output Total 640 ml 322 ml Balance 270 ml -322 ml IV Total 910 ml Output Urine Total 500 ml 2 ml Gastric Drainage Total 100 ml 300 ml Drainage Total 40 ml 20 ml Laboratory Tests 01/27/18 06:50: White Blood Count 8.1, Red Blood Count 3.12L, Hemoglobin 10.8L, Hematocrit 30.9L , Mean Corpuscular Volume 99, Mean Corpuscular Hemoglobin 34.8H, Mean Corpuscular Hemoglobin Concent 35.0, Red Cell Distribution Width 12.1, Platelet Count 274, Mean Platelet Volume 5.3L, Neutrophils (%) (Auto) 63.7, Lymphocytes ( %) (Auto) 25.5, Monocytes (%) (Auto) 7.3, Eosinophils (%) (Auto) 2.7, Basophils (%) (Auto) 0.7, Sodium Level 138, Potassium Level 3.5, Chloride Level 104, Carbon Dioxide Level 29, Anion Gap 5, Blood Urea Nitrogen 6L, Creatinine 0.6, Estimat Glomerular Filtration Rate > 60, Glucose Level 91, Calcium Level 8.5, Total Bilirubin 0.6, Aspartate Amino Transf (AST/SGOT) 16, Alanine Aminotransferase (ALT/SGPT) 10L, Alkaline Phosphatase 42L, Total Protein 6.3L, Albumin 2.2L, Globulin 4.1, Albumin/Globulin Ratio 0.5L, Helicobacter pylori IgG Antibody [Pending] Height (Feet): 5 Height (Inches): 7.00 Weight (Pounds): 208 General Appearance: alert EENT: normal ENT inspection Neck: supple Cardiovascular: normal rate Respiratory/Chest: decreased breath sounds Abdomen: other - post surgical Extremities: non-tender Homar Byrd MD January 27, 2018 09:50
--- NOTE | 2018-01-27 11:24 | Pulmonology Progress Note ---
Assessment/Plan Assessment/Plan ASSESSMENT Perforated duodenal ulcer s/p 01/24 exploratory laparotomy, gastrorrhaphy with Grover patch PLAN OF CARE Med Surg floor NPO IV fluids Pain management NG tube to suction, monitor output Pigtail drain, monitor output wound/dressing care C/D/I Antiemetics as needed DVT, GI prophylaxis Empiric antibiotics, ID follows supplemental oxygen prn to keep pulse oximetry above 92% monitor renal parameters, electrolytes, correct electrolytes as needed OOB as tolerated tid and ambulate IS at the bedside , teach and encourage to use while in the bed case discussed and evaluated by supervising physician Subjective Allergies: Coded Allergies: No Known Allergies (Unverified , 01/24/18) Subjective c/o intermittent abd pain not passing gas afebrile, no leukocytosis pulse oximetry stable on oxygen via nasal cannula not moving, not willing to be OOB Objective Last 24 Hour Vital Signs Date Time Temp Pulse Resp B/P (MAP) Pulse Ox O2 Delivery O2 Flow Rate FiO2 01/27/18 08:00 98.1 64 20 127/69 97 98.1 01/27/18 04:00 97.7 69 20 147/74 100 Nasal Cannula 2.0 97.7 01/27/18 00:54 97.9 65 20 141/70 100 Nasal Cannula 2.0 97.9 01/26/18 20:13 99.0 77 20 143/81 97 Nasal Cannula 2.0 99.0 01/26/18 16:00 98.0 85 20 145/82 98 98.0 01/26/18 12:01 Nasal Cannula 2.0 01/26/18 12:00 98.0 70 12 120/77 97 98.0 Intake and Output 01/26/18 01/27/18 19:00 07:00 Intake Total 910 ml Output Total 640 ml 322 ml Balance 270 ml -322 ml IV Total 910 ml Output Urine Total 500 ml 2 ml Gastric Drainage Total 100 ml 300 ml Drainage Total 40 ml 20 ml Objective General Appearance: no acute distress HEENT: normocephalic, atraumatic, anicteric, NG tube to suction Respiratory/Chest: lungs clear, no respiratory distress, no accessory muscle use Cardiovascular: normal rate Abdomen: absent bowel sounds, dressing C/D/I,Hemovac drain with serosanguineous drainage Extremities: no edema, pedal pulses normal Neurologic/Psychiatric: alert, oriented x 3, responsive Musculoskeletal: normal muscle bulk Microbiology Date/Time Source Procedure Growth Status 01/25/18 16:20 Blood Blood Culture - Preliminary NO GROWTH AFTER 24 HOURS Resulted 01/25/18 16:05 Blood Blood Culture - Preliminary NO GROWTH AFTER 24 HOURS Resulted Laboratory Tests 01/27/18 06:50: White Blood Count 8.1, Red Blood Count 3.12L, Hemoglobin 10.8L, Hematocrit 30.9L , Mean Corpuscular Volume 99, Mean Corpuscular Hemoglobin 34.8H, Mean Corpuscular Hemoglobin Concent 35.0, Red Cell Distribution Width 12.1, Platelet Count 274, Mean Platelet Volume 5.3L, Neutrophils (%) (Auto) 63.7, Lymphocytes ( %) (Auto) 25.5, Monocytes (%) (Auto) 7.3, Eosinophils (%) (Auto) 2.7, Basophils (%) (Auto) 0.7, Sodium Level 138, Potassium Level 3.5, Chloride Level 104, Carbon Dioxide Level 29, Anion Gap 5, Blood Urea Nitrogen 6L, Creatinine 0.6, Estimat Glomerular Filtration Rate > 60, Glucose Level 91, Calcium Level 8.5, Total Bilirubin 0.6, Aspartate Amino Transf (AST/SGOT) 16, Alanine Aminotransferase (ALT/SGPT) 10L, Alkaline Phosphatase 42L, Total Protein 6.3L, Albumin 2.2L, Globulin 4.1, Albumin/Globulin Ratio 0.5L, Helicobacter pylori IgG Antibody [Pending] Current Medications Medications (Trade) Dose Ordered Sig/Evelyn Route PRN Reason Start Time Stop Time Status Last Admin Dose Admin Acetaminophen (Tylenol) 650 mg Q4H PRN ORAL fever 01/24/18 15:30 02/23/18 15:29 Acetaminophen (Tylenol) 650 mg Q4H PRN RECTAL FEVER 01/24/18 18:45 02/23/18 18:44 Al Hydroxide/Mg Hydroxide (Mylanta II) 30 ml Q6H PRN ORAL dyspepsia 01/24/18 15:30 02/23/18 15:29 Ceftriaxone Sodium 1 gm/ Sodium Chloride 110 ml @ 220 mls/hr Q24H IVPB 01/25/18 15:00 02/01/18 14:59 01/26/18 14:32 Dextrose (Dextrose 50%) STAT PRN IV Hypoglycemia 01/24/18 15:30 6/16/18 15:29 Dextrose (Dextrose 50%) STAT PRN IV Hypoglycemia 01/25/18 10:15 02/24/18 10:14 Dextrose/ Electrolytes 1,000 ml @ 100 mls/hr Q10H IV 01/24/18 19:30 02/23/18 19:29 01/27/18 06:34 Diphenhydramine HCl (Benadryl) 25 mg Q6H PRN ORAL Itching/Pruritis 01/24/18 15:30 02/23/18 15:29 Enoxaparin Sodium (Lovenox) 40 mg DAILY SUBQ 01/25/18 09:00 02/24/18 08:59 01/27/18 09:37 Iopamidol (Isovue-300 100ml) 100 ml NOW PRN INJ Radiology Procedure 01/24/18 11:00 Metoclopramide HCl (Reglan) 10 mg Q6H PRN IVP Nausea & Vomiting 01/24/18 18:45 02/23/18 18:44 01/27/18 09:26 Metronidazole 100 ml @ 100 mls/hr Q8H IVPB 01/25/18 15:30 02/01/18 15:29 01/27/18 06:34 Morphine Sulfate (Morphine Sulfate) 10 mg Q3H PRN IVP For Pain 01/25/18 13:47 02/01/18 13:46 01/27/18 09:27 Nitroglycerin (Ntg) 0.4 mg Q5M X 3 DOSES PRN SL Prn Chest Pain 01/24/18 15:30 02/23/18 15:29 Ondansetron HCl (Zofran) 4 mg Q6H PRN IVP Nausea & Vomiting 01/24/18 15:30 02/23/18 15:29 Pantoprazole (Protonix) 40 mg DAILY IVP 01/25/18 09:00 02/24/18 08:59 01/27/18 09:26 Polyethylene Glycol (Miralax) 17 gm HSPRN PRN ORAL Constipation 01/24/18 21:00 02/23/18 20:59 Temazepam (Restoril) 15 mg HSPRN PRN ORAL Insomnia 01/24/18 21:00 01/31/18 20:59 Teresita Lancaster NP January 27, 2018 11:24
[2018-01-27 11:32] VITALS: BP 115/71
--- NOTE | 2018-01-27 12:27 | General Surgery Progress Note ---
General Surgery-Progress Note Subjective Procedure Performed exploratory laparotomy , Gastrorrhaphy with sandra patch Symptoms: improved Objective Last 24 Hour Vital Signs Date Time Temp Pulse Resp B/P (MAP) Pulse Ox O2 Delivery O2 Flow Rate FiO2 01/27/18 11:32 98.6 56 18 115/71 97 Nasal Cannula 1.0 98.6 01/27/18 08:01 Nasal Cannula 1.0 01/27/18 08:00 98.1 64 20 127/69 97 98.1 01/27/18 04:00 97.7 69 20 147/74 100 Nasal Cannula 2.0 97.7 01/27/18 00:54 97.9 65 20 141/70 100 Nasal Cannula 2.0 97.9 01/26/18 20:13 99.0 77 20 143/81 97 Nasal Cannula 2.0 99.0 01/26/18 16:00 98.0 85 20 145/82 98 98.0 I&O Intake and Output 01/26/18 01/27/18 19:00 07:00 Intake Total 910 ml Output Total 640 ml 322 ml Balance 270 ml -322 ml IV Total 910 ml Output Urine Total 500 ml 2 ml Gastric Drainage Total 100 ml 300 ml Drainage Total 40 ml 20 ml Dressing: dry Drains: elena Respiratory: clear Abdomen: soft, flat, tenderness, absent bowel sounds Extremities: no tenderness Laboratory Tests Test 01/27/18 06:50 White Blood Count 8.1 K/UL (4.8-10.8) Red Blood Count 3.12 M/UL (4.20-5.40) L Hemoglobin 10.8 G/DL (12.0-16.0) L Hematocrit 30.9 % (37.0-47.0) L Mean Corpuscular Volume 99 FL (80-99) Mean Corpuscular Hemoglobin 34.8 PG (27.0-31.0) H Mean Corpuscular Hemoglobin Concent 35.0 G/DL (32.0-36.0) Red Cell Distribution Width 12.1 % (11.6-14.8) Platelet Count 274 K/UL (150-450) Mean Platelet Volume 5.3 FL (6.5-10.1) L Neutrophils (%) (Auto) 63.7 % (45.0-75.0) Lymphocytes (%) (Auto) 25.5 % (20.0-45.0) Monocytes (%) (Auto) 7.3 % (1.0-10.0) Eosinophils (%) (Auto) 2.7 % (0.0-3.0) Basophils (%) (Auto) 0.7 % (0.0-2.0) Sodium Level 138 MMOL/L (136-145) Potassium Level 3.5 MMOL/L (3.5-5.1) Chloride Level 104 MMOL/L (98-107) Carbon Dioxide Level 29 MMOL/L (21-32) Anion Gap 5 mmol/L (5-15) Blood Urea Nitrogen 6 mg/dL (7-18) L Creatinine 0.6 MG/DL (0.55-1.30) Estimat Glomerular Filtration Rate > 60 mL/min (>60) Glucose Level 91 MG/DL (74-106) Calcium Level 8.5 MG/DL (8.5-10.1) Total Bilirubin 0.6 MG/DL (0.2-1.0) Aspartate Amino Transf (AST/SGOT) 16 U/L (15-37) Alanine Aminotransferase (ALT/SGPT) 10 U/L (12-78) L Alkaline Phosphatase 42 U/L (46-116) L Total Protein 6.3 G/DL (6.4-8.2) L Albumin 2.2 G/DL (3.4-5.0) L Globulin 4.1 g/dL Albumin/Globulin Ratio 0.5 (1.0-2.7) L Helicobacter pylori IgG Antibody Pending Assessment Post-op Diagnosis perforated duodenal ulcer Plan Additional Comments continue current treatment Mayank Owusu MD January 27, 2018 12:26
--- NOTE | 2018-01-27 14:15 | Internal Med Progress Note ---
Subjective Date of Service: January 27, 2018 Physician Name JorgensenCharles Attending Physician James Murdock MD Current Medications Medications (Trade) Dose Ordered Sig/Evelyn Route PRN Reason Start Time Stop Time Status Last Admin Dose Admin Acetaminophen (Tylenol) 650 mg Q4H PRN ORAL fever 01/24/18 15:30 02/23/18 15:29 Acetaminophen (Tylenol) 650 mg Q4H PRN RECTAL FEVER 01/24/18 18:45 02/23/18 18:44 Al Hydroxide/Mg Hydroxide (Mylanta II) 30 ml Q6H PRN ORAL dyspepsia 01/24/18 15:30 02/23/18 15:29 Ceftriaxone Sodium 1 gm/ Sodium Chloride 110 ml @ 220 mls/hr Q24H IVPB 01/25/18 15:00 02/01/18 14:59 01/26/18 14:32 Dextrose (Dextrose 50%) STAT PRN IV Hypoglycemia 01/24/18 15:30 02/23/18 15:29 Dextrose (Dextrose 50%) STAT PRN IV Hypoglycemia 01/25/18 10:15 02/24/18 10:14 Dextrose/ Electrolytes 1,000 ml @ 100 mls/hr Q10H IV 01/24/18 19:30 02/23/18 19:29 01/27/18 06:34 Diphenhydramine HCl (Benadryl) 25 mg Q6H PRN ORAL Itching/Pruritis 01/24/18 15:30 02/23/18 15:29 Enoxaparin Sodium (Lovenox) 40 mg DAILY SUBQ 01/25/18 09:00 02/24/18 08:59 01/27/18 09:37 Iopamidol (Isovue-300 100ml) 100 ml NOW PRN INJ Radiology Procedure 01/24/18 11:00 Metoclopramide HCl (Reglan) 10 mg Q6H PRN IVP Nausea & Vomiting 01/24/18 18:45 02/23/18 18:44 01/27/18 09:26 Metronidazole 100 ml @ 100 mls/hr Q8H IVPB 01/25/18 15:30 02/01/18 15:29 01/27/18 06:34 Morphine Sulfate (Morphine Sulfate) 10 mg Q3H PRN IVP For Pain 01/25/18 13:47 02/01/18 13:46 01/27/18 12:27 Nitroglycerin (Ntg) 0.4 mg Q5M X 3 DOSES PRN SL Prn Chest Pain 01/24/18 15:30 02/23/18 15:29 Ondansetron HCl (Zofran) 4 mg Q6H PRN IVP Nausea & Vomiting 01/24/18 15:30 02/23/18 15:29 Pantoprazole (Protonix) 40 mg DAILY IVP 01/25/18 09:00 02/24/18 08:59 01/27/18 09:26 Polyethylene Glycol (Miralax) 17 gm HSPRN PRN ORAL Constipation 01/24/18 21:00 02/23/18 20:59 Temazepam (Restoril) 15 mg HSPRN PRN ORAL Insomnia 01/24/18 21:00 01/31/18 20:59 Allergies: Coded Allergies: No Known Allergies (Unverified , 01/24/18) ROS Limited/Unobtainable: No Constitutional: Reports: no symptoms HEENT: Reports: no symptoms Cardiovascular: Reports: no symptoms Respiratory: Reports: no symptoms Gastrointestinal/Abdominal: Reports: abdomen distended, abdominal pain Genitourinary: Reports: no symptoms Neurologic/Psychiatric: Reports: no symptoms Subjective 47 YO F admitted with abdominal pain; now perforated duodenal ulcer. S/P exploratory laparotomy 01/24/18. Cover for Int Juan-Dr Murdock Objective Last Vital Signs Date Time Temp Pulse Resp B/P (MAP) Pulse Ox O2 Delivery O2 Flow Rate FiO2 01/27/18 11:32 98.6 56 18 115/71 97 Nasal Cannula 1.0 98.6 General Appearance: WD/WN, alert, mild distress EENT: PERRL/EOMI, normal ENT inspection Neck: non-tender, normal alignment, supple, normal inspection Cardiovascular: normal peripheral pulses, normal rate, regular rhythm, no gallop/murmur, no JVD Respiratory/Chest: chest wall non-tender, lungs clear, normal breath sounds, no respiratory distress, no accessory muscle use Abdomen: decreased bowel sounds, distended, guarding, tender Extremities: normal range of motion, non-tender Neurologic: measurement advisor II-XII grossly normal, no motor/sensory deficits Skin: normal pigmentation Laboratory Tests Test 01/27/18 06:50 White Blood Count 8.1 K/UL (4.8-10.8) Red Blood Count 3.12 M/UL (4.20-5.40) L Hemoglobin 10.8 G/DL (12.0-16.0) L Hematocrit 30.9 % (37.0-47.0) L Mean Corpuscular Volume 99 FL (80-99) Mean Corpuscular Hemoglobin 34.8 PG (27.0-31.0) H Mean Corpuscular Hemoglobin Concent 35.0 G/DL (32.0-36.0) Red Cell Distribution Width 12.1 % (11.6-14.8) Platelet Count 274 K/UL (150-450) Mean Platelet Volume 5.3 FL (6.5-10.1) L Neutrophils (%) (Auto) 63.7 % (45.0-75.0) Lymphocytes (%) (Auto) 25.5 % (20.0-45.0) Monocytes (%) (Auto) 7.3 % (1.0-10.0) Eosinophils (%) (Auto) 2.7 % (0.0-3.0) Basophils (%) (Auto) 0.7 % (0.0-2.0) Sodium Level 138 MMOL/L (136-145) Potassium Level 3.5 MMOL/L (3.5-5.1) Chloride Level 104 MMOL/L (98-107) Carbon Dioxide Level 29 MMOL/L (21-32) Anion Gap 5 mmol/L (5-15) Blood Urea Nitrogen 6 mg/dL (7-18) L Creatinine 0.6 MG/DL (0.55-1.30) Estimat Glomerular Filtration Rate > 60 mL/min (>60) Glucose Level 91 MG/DL (74-106) Calcium Level 8.5 MG/DL (8.5-10.1) Total Bilirubin 0.6 MG/DL (0.2-1.0) Aspartate Amino Transf (AST/SGOT) 16 U/L (15-37) Alanine Aminotransferase (ALT/SGPT) 10 U/L (12-78) L Alkaline Phosphatase 42 U/L (46-116) L Total Protein 6.3 G/DL (6.4-8.2) L Albumin 2.2 G/DL (3.4-5.0) L Globulin 4.1 g/dL Albumin/Globulin Ratio 0.5 (1.0-2.7) L Helicobacter pylori IgG Antibody Pending Microbiology Date/Time Source Procedure Growth Status 01/25/18 16:20 Blood Blood Culture - Preliminary NO GROWTH AFTER 24 HOURS Resulted 01/25/18 16:05 Blood Blood Culture - Preliminary NO GROWTH AFTER 24 HOURS Resulted Intake and Output 01/26/18 01/27/18 19:00 07:00 Intake Total 910 ml Output Total 640 ml 322 ml Balance 270 ml -322 ml IV Total 910 ml Output Urine Total 500 ml 2 ml Gastric Drainage Total 100 ml 300 ml Drainage Total 40 ml 20 ml Assessment/Plan Assessment/Plan Assessment/Plan Assessment/Plan 1. Perforated duodenal ulcer s/p Exploratory laparotomy 01/24/18-see surgery note. 2. Abdominal pain Plan: NPO except med's NGT tube pain medication Protonix IV Abx: Rocephin and Flagyl. SCD Full code. Charles Jorgensen MD January 27, 2018 14:15
[2018-01-27] MEDS: cefTRIAXone 1 GM in NS 110 ML IVPB SCH (15:33)
[2018-01-27 16:32] VITALS: BP 130/73
[2018-01-27] MEDS: Dicyclomine 20mg/2ml Inj IM PRN (17:46)
[2018-01-27 20:00] VITALS: BP 132/63
[2018-01-28] VITALS: BP 127/68
[2018-01-28] MEDS: Dicyclomine 20mg/2ml Inj IM PRN ×2 (00:18→21:01)
[2018-01-28] MEDS: D5 1/2NS w/KCl 20mEq 1,000 ML IV SCH ×3 (00:19→23:44)
[2018-01-28] MEDS: Morphine Sulfate 4mg/ml Inj IVP PRN ×8 (00:41→23:25)
[2018-01-28 04:00] VITALS: BP 121/68
[2018-01-28 08:00] VITALS: BP 146/72
[2018-01-28 08:32] LABS: EOSINOPHILS % (AUTO) 4.6 % (0.0-3.0); HEMATOCRIT 31.2 % (37.0-47.0); HEMOGLOBIN 10.8 G/DL (12.0-16.0); LYMPHOCYTES % (AUTO) 39.8 % (20.0-45.0); MEAN CORPUSCULAR VOLUME 98 FL (80-99); MONOCYTES % (AUTO) 7.8 % (1.0-10.0); NEUTROPHILS % (AUTO) 46.8 % (45.0-75.0); PLATELET COUNT 316 K/UL (150-450); RED BLOOD COUNT 3.18 M/UL (4.20-5.40); WHITE BLOOD COUNT 6.6 K/UL (4.8-10.8)
[2018-01-28 08:43] LABS: ANION GAP 5 mmol/L (5-15); BLOOD UREA NITROGEN 5 mg/dL (7-18); CALCIUM 8.4 MG/DL (8.5-10.1); CARBON DIOXIDE 30 MMOL/L (21-32); CHLORIDE 104 MMOL/L (98-107); CREATININE 0.6 MG/DL (0.55-1.30); POTASSIUM 3.5 MMOL/L (3.5-5.1); SODIUM 139 MMOL/L (136-145)
[2018-01-28] MEDS: Enoxaparin 40mg Inj SUBQ SCH (09:00)
[2018-01-28] MEDS: Pantoprazole Inj IVP SCH (09:00)
--- NOTE | 2018-01-28 11:55 | Internal Med Progress Note ---
Subjective Date of Service: January 28, 2018 Physician Name Jorgensen,Charles Attending Physician James Murdock MD Current Medications Medications (Trade) Dose Ordered Sig/Evelyn Route PRN Reason Start Time Stop Time Status Last Admin Dose Admin Acetaminophen (Tylenol) 650 mg Q4H PRN ORAL fever 01/24/18 15:30 02/23/18 15:29 Acetaminophen (Tylenol) 650 mg Q4H PRN RECTAL FEVER 01/24/18 18:45 02/23/18 18:44 Al Hydroxide/Mg Hydroxide (Mylanta II) 30 ml Q6H PRN ORAL dyspepsia 01/24/18 15:30 02/23/18 15:29 Ceftriaxone Sodium 1 gm/ Sodium Chloride 110 ml @ 220 mls/hr Q24H IVPB 01/25/18 15:00 02/01/18 14:59 01/27/18 15:33 Dextrose (Dextrose 50%) STAT PRN IV Hypoglycemia 01/24/18 15:30 02/23/18 15:29 Dextrose (Dextrose 50%) STAT PRN IV Hypoglycemia 01/25/18 10:15 02/24/18 10:14 Dextrose/ Electrolytes 1,000 ml @ 100 mls/hr Q10H IV 01/24/18 19:30 02/23/18 19:29 01/28/18 00:19 Dicyclomine HCl (Bentyl) 20 mg Q6H PRN IM Abdominal cramps 01/27/18 16:00 02/26/18 15:59 01/28/18 00:18 Diphenhydramine HCl (Benadryl) 25 mg Q6H PRN ORAL Itching/Pruritis 01/24/18 15:30 02/23/18 15:29 Enoxaparin Sodium (Lovenox) 40 mg DAILY SUBQ 01/25/18 09:00 02/24/18 08:59 01/28/18 09:00 Iopamidol (Isovue-300 100ml) 100 ml NOW PRN INJ Radiology Procedure 01/24/18 11:00 Metoclopramide HCl (Reglan) 10 mg Q6H PRN IVP Nausea & Vomiting 01/24/18 18:45 02/23/18 18:44 01/27/18 15:32 Metronidazole 100 ml @ 100 mls/hr Q8H IVPB 01/25/18 15:30 02/01/18 15:29 01/28/18 06:26 Morphine Sulfate (Morphine Sulfate) 10 mg Q3H PRN IVP For Pain 01/25/18 13:47 02/01/18 13:46 01/28/18 10:47 Nitroglycerin (Ntg) 0.4 mg Q5M X 3 DOSES PRN SL Prn Chest Pain 01/24/18 15:30 02/23/18 15:29 Ondansetron HCl (Zofran) 4 mg Q6H PRN IVP Nausea & Vomiting 01/24/18 15:30 02/23/18 15:29 Pantoprazole (Protonix) 40 mg DAILY IVP 01/25/18 09:00 02/24/18 08:59 01/28/18 09:00 Polyethylene Glycol (Miralax) 17 gm HSPRN PRN ORAL Constipation 01/24/18 21:00 02/23/18 20:59 Temazepam (Restoril) 15 mg HSPRN PRN ORAL Insomnia 01/24/18 21:00 01/31/18 20:59 Allergies: Coded Allergies: No Known Allergies (Unverified , 01/24/18) ROS Limited/Unobtainable: No Constitutional: Reports: no symptoms HEENT: Reports: no symptoms Cardiovascular: Reports: no symptoms Respiratory: Reports: no symptoms Gastrointestinal/Abdominal: Reports: no symptoms Genitourinary: Reports: no symptoms Neurologic/Psychiatric: Reports: no symptoms Subjective 47 YO F admitted with abdominal pain; now perforated duodenal ulcer. S/P exploratory laparotomy 01/24/18. Cover for Int Juan-Dr Murdock Objective Last Vital Signs Date Time Temp Pulse Resp B/P (MAP) Pulse Ox O2 Delivery O2 Flow Rate FiO2 01/28/18 08:00 97.9 52 18 146/72 94 Room Air 97.9 01/28/18 00:00 1.0 Laboratory Tests Test 01/28/18 06:25 White Blood Count 6.6 K/UL (4.8-10.8) Red Blood Count 3.18 M/UL (4.20-5.40) L Hemoglobin 10.8 G/DL (12.0-16.0) L Hematocrit 31.2 % (37.0-47.0) L Mean Corpuscular Volume 98 FL (80-99) Mean Corpuscular Hemoglobin 34.0 PG (27.0-31.0) H Mean Corpuscular Hemoglobin Concent 34.6 G/DL (32.0-36.0) Red Cell Distribution Width 12.0 % (11.6-14.8) Platelet Count 316 K/UL (150-450) Mean Platelet Volume 5.0 FL (6.5-10.1) L Neutrophils (%) (Auto) 46.8 % (45.0-75.0) Lymphocytes (%) (Auto) 39.8 % (20.0-45.0) Monocytes (%) (Auto) 7.8 % (1.0-10.0) Eosinophils (%) (Auto) 4.6 % (0.0-3.0) H Basophils (%) (Auto) 1.0 % (0.0-2.0) Sodium Level 139 MMOL/L (136-145) Potassium Level 3.5 MMOL/L (3.5-5.1) Chloride Level 104 MMOL/L (98-107) Carbon Dioxide Level 30 MMOL/L (21-32) Anion Gap 5 mmol/L (5-15) Blood Urea Nitrogen 5 mg/dL (7-18) L Creatinine 0.6 MG/DL (0.55-1.30) Estimat Glomerular Filtration Rate > 60 mL/min (>60) Glucose Level 89 MG/DL (74-106) Calcium Level 8.4 MG/DL (8.5-10.1) L Microbiology Date/Time Source Procedure Growth Status 01/25/18 16:20 Blood Blood Culture - Preliminary NO GROWTH AFTER 48 HOURS Resulted 01/25/18 16:05 Blood Blood Culture - Preliminary NO GROWTH AFTER 48 HOURS Resulted Intake and Output 01/27/18 01/28/18 19:00 07:00 Intake Total 1310 ml 800 ml Output Total 367 ml 260 ml Balance 943 ml 540 ml Intake Oral 0 ml IV Total 1310 ml 800 ml Output Urine Total 2 ml Gastric Drainage Total 350 ml 250 ml Drainage Total 15 ml 10 ml # Voids 1 Objective General Appearance: WD/WN, alert, mild distress EENT: PERRL/EOMI, normal ENT inspection Neck: non-tender, normal alignment, supple, normal inspection Cardiovascular: normal peripheral pulses, normal rate, regular rhythm, no gallop/murmur, no JVD Respiratory/Chest: chest wall non-tender, lungs clear, normal breath sounds, no respiratory distress, no accessory muscle use Abdomen: NGT in place; decreased bowel sounds, distended, guarding, tender Extremities: normal range of motion, non-tender Neurologic: change room attendant II-XII grossly normal, no motor/sensory deficits Skin: normal pigmentation Assessment/Plan Assessment/Plan Assessment/Plan Assessment/Plan 1. Perforated duodenal ulcer s/p Exploratory laparotomy 01/24/18-see surgery note. 2. Abdominal pain Plan: NPO except med's NGT tube pain medication Protonix IV Abx: Rocephin and Flagyl. SCD Full code. Charles Jorgensen MD January 28, 2018 11:55
--- NOTE | 2018-01-28 12:03 | GI Progress Note ---
Assessment/Plan Problems: (1) Perforated abdominal viscus (2) Abdominal pain ICD Codes: R10.9 - Unspecified abdominal pain SNOMED: [id number] Status: progressing Status Narrative Discussed with Dr. Byrd. Assessment/Plan perforated DU s/p Exploratory laparotomy, gastrorrhaphy with Grover post op care on ppi pain control >> ween fu H.pylori serology npo NGT for bowel decompression fu labs Subjective Gastrointestinal/Abdominal: Reports: abdominal pain Subjective not passing flatus Objective Last 24 Hour Vital Signs Date Time Temp Pulse Resp B/P (MAP) Pulse Ox O2 Delivery O2 Flow Rate FiO2 01/28/18 08:00 97.9 52 18 146/72 94 Room Air 97.9 01/28/18 04:00 97.9 51 20 121/68 97 97.9 01/28/18 00:00 98.1 61 18 127/68 97 Nasal Cannula 1.0 98.1 01/27/18 20:00 98.4 58 20 132/63 96 98.4 01/27/18 16:32 98.2 57 20 130/73 97 Nasal Cannula 2.0 98.2 Intake and Output 01/27/18 01/28/18 19:00 07:00 Intake Total 1310 ml 800 ml Output Total 367 ml 260 ml Balance 943 ml 540 ml Intake Oral 0 ml IV Total 1310 ml 800 ml Output Urine Total 2 ml Gastric Drainage Total 350 ml 250 ml Drainage Total 15 ml 10 ml # Voids 1 Laboratory Tests Test 01/28/18 06:25 White Blood Count 6.6 K/UL (4.8-10.8) Red Blood Count 3.18 M/UL (4.20-5.40) L Hemoglobin 10.8 G/DL (12.0-16.0) L Hematocrit 31.2 % (37.0-47.0) L Mean Corpuscular Volume 98 FL (80-99) Mean Corpuscular Hemoglobin 34.0 PG (27.0-31.0) H Mean Corpuscular Hemoglobin Concent 34.6 G/DL (32.0-36.0) Red Cell Distribution Width 12.0 % (11.6-14.8) Platelet Count 316 K/UL (150-450) Mean Platelet Volume 5.0 FL (6.5-10.1) L Neutrophils (%) (Auto) 46.8 % (45.0-75.0) Lymphocytes (%) (Auto) 39.8 % (20.0-45.0) Monocytes (%) (Auto) 7.8 % (1.0-10.0) Eosinophils (%) (Auto) 4.6 % (0.0-3.0) H Basophils (%) (Auto) 1.0 % (0.0-2.0) Sodium Level 139 MMOL/L (136-145) Potassium Level 3.5 MMOL/L (3.5-5.1) Chloride Level 104 MMOL/L (98-107) Carbon Dioxide Level 30 MMOL/L (21-32) Anion Gap 5 mmol/L (5-15) Blood Urea Nitrogen 5 mg/dL (7-18) L Creatinine 0.6 MG/DL (0.55-1.30) Estimat Glomerular Filtration Rate > 60 mL/min (>60) Glucose Level 89 MG/DL (74-106) Calcium Level 8.4 MG/DL (8.5-10.1) L Height (Feet): 5 Height (Inches): 7.00 Weight (Pounds): 208 General Appearance: WD/WN, no apparent distress, alert Cardiovascular: normal rate Respiratory/Chest: normal breath sounds, no respiratory distress Abdominal Exam: normal bowel sounds, non tender, soft Extremities: normal range of motion, non-tender Denia Butcher NP January 28, 2018 12:03
--- NOTE | 2018-01-28 12:48 | Infectious Diseases Prog Note ---
Assessment/Plan Assessment/Plan ASSESSMENT: The patient is a 47-year-old female SP perforated duodenal ulcer status post postop (01/24/2018) CT of the abdomen: positive intraperitoneal air Leukocytosis, SP Rule out bacteremia -BCx NTD Hx of myomectomy PLAN: Cont patient on IV Rocephin and Flagyl d# 4 ( duration depend on the clinical course and removal of LATHA ) 01/24 SP Zosyn x 1 Monitor CBC. Monitor BMP. Monitor blood cultures. Surg following Subjective Allergies: Coded Allergies: No Known Allergies (Unverified , 01/24/18) Subjective afebrile no leukocytosis Bcx NTD Objective Vital Signs Last 24 Hour Vital Signs Date Time Temp Pulse Resp B/P (MAP) Pulse Ox O2 Delivery O2 Flow Rate FiO2 01/28/18 11:17 97.9 01/28/18 08:00 97.9 52 18 146/72 94 Room Air 97.9 01/28/18 04:00 97.9 51 20 121/68 97 97.9 01/28/18 00:00 98.1 61 18 127/68 97 Nasal Cannula 1.0 98.1 01/27/18 20:00 98.4 58 20 132/63 96 98.4 01/27/18 16:32 98.2 57 20 130/73 97 Nasal Cannula 2.0 98.2 Height (Feet): 5 Height (Inches): 7.00 Weight (Pounds): 208 Objective General Appearance: WD/WN, alert, mild distress EENT: PERRL/EOMI, normal ENT inspection Neck: non-tender, normal alignment, supple, normal inspection Cardiovascular: normal peripheral pulses, normal rate, regular rhythm, no gallop/murmur, no JVD Respiratory/Chest: chest wall non-tender, lungs clear, normal breath sounds, no respiratory distress, no accessory muscle use Abdomen: surgical dressings on palce, LATHA drain- serosanguineous fluid Extremities: normal range of motion, non-tender Neurologic: consulting sme II-XII grossly normal, no motor/sensory deficits Skin: normal pigmentation Microbiology Date/Time Source Procedure Growth Status 01/25/18 16:20 Blood Blood Culture - Preliminary NO GROWTH AFTER 48 HOURS Resulted 01/25/18 16:05 Blood Blood Culture - Preliminary NO GROWTH AFTER 48 HOURS Resulted Laboratory Tests Test 01/28/18 06:25 White Blood Count 6.6 K/UL (4.8-10.8) Red Blood Count 3.18 M/UL (4.20-5.40) L Hemoglobin 10.8 G/DL (12.0-16.0) L Hematocrit 31.2 % (37.0-47.0) L Mean Corpuscular Volume 98 FL (80-99) Mean Corpuscular Hemoglobin 34.0 PG (27.0-31.0) H Mean Corpuscular Hemoglobin Concent 34.6 G/DL (32.0-36.0) Red Cell Distribution Width 12.0 % (11.6-14.8) Platelet Count 316 K/UL (150-450) Mean Platelet Volume 5.0 FL (6.5-10.1) L Neutrophils (%) (Auto) 46.8 % (45.0-75.0) Lymphocytes (%) (Auto) 39.8 % (20.0-45.0) Monocytes (%) (Auto) 7.8 % (1.0-10.0) Eosinophils (%) (Auto) 4.6 % (0.0-3.0) H Basophils (%) (Auto) 1.0 % (0.0-2.0) Sodium Level 139 MMOL/L (136-145) Potassium Level 3.5 MMOL/L (3.5-5.1) Chloride Level 104 MMOL/L (98-107) Carbon Dioxide Level 30 MMOL/L (21-32) Anion Gap 5 mmol/L (5-15) Blood Urea Nitrogen 5 mg/dL (7-18) L Creatinine 0.6 MG/DL (0.55-1.30) Estimat Glomerular Filtration Rate > 60 mL/min (>60) Glucose Level 89 MG/DL (74-106) Calcium Level 8.4 MG/DL (8.5-10.1) L Current Medications Medications (Trade) Dose Ordered Sig/Evelyn Route PRN Reason Start Time Stop Time Status Last Admin Dose Admin Acetaminophen (Tylenol) 650 mg Q4H PRN ORAL fever 01/24/18 15:30 02/23/18 15:29 Acetaminophen (Tylenol) 650 mg Q4H PRN RECTAL FEVER 01/24/18 18:45 02/23/18 18:44 Al Hydroxide/Mg Hydroxide (Mylanta II) 30 ml Q6H PRN ORAL dyspepsia 01/24/18 15:30 02/23/18 15:29 Ceftriaxone Sodium 1 gm/ Sodium Chloride 110 ml @ 220 mls/hr Q24H IVPB 01/25/18 15:00 02/01/18 14:59 01/27/18 15:33 Dextrose (Dextrose 50%) STAT PRN IV Hypoglycemia 01/24/18 15:30 02/23/18 15:29 Dextrose (Dextrose 50%) STAT PRN IV Hypoglycemia 01/25/18 10:15 02/24/18 10:14 Dextrose/ Electrolytes 1,000 ml @ 100 mls/hr Q10H IV 01/24/18 19:30 02/23/18 19:29 01/28/18 00:19 Dicyclomine HCl (Bentyl) 20 mg Q6H PRN IM Abdominal cramps 01/27/18 16:00 02/26/18 15:59 01/28/18 00:18 Diphenhydramine HCl (Benadryl) 25 mg Q6H PRN ORAL Itching/Pruritis 01/24/18 15:30 02/23/18 15:29 Enoxaparin Sodium (Lovenox) 40 mg DAILY SUBQ 01/25/18 09:00 02/24/18 08:59 01/28/18 09:00 Iopamidol (Isovue-300 100ml) 100 ml NOW PRN INJ Radiology Procedure 01/24/18 11:00 Metoclopramide HCl (Reglan) 10 mg Q6H PRN IVP Nausea & Vomiting 01/24/18 18:45 02/23/18 18:44 01/27/18 15:32 Metronidazole 100 ml @ 100 mls/hr Q8H IVPB 01/25/18 15:30 02/01/18 15:29 01/28/18 06:26 Morphine Sulfate (Morphine Sulfate) 10 mg Q3H PRN IVP For Pain 01/25/18 13:47 02/01/18 13:46 01/28/18 10:47 Nitroglycerin (Ntg) 0.4 mg Q5M X 3 DOSES PRN SL Prn Chest Pain 01/24/18 15:30 02/23/18 15:29 Ondansetron HCl (Zofran) 4 mg Q6H PRN IVP Nausea & Vomiting 01/24/18 15:30 02/23/18 15:29 Pantoprazole (Protonix) 40 mg DAILY IVP 01/25/18 09:00 02/24/18 08:59 01/28/18 09:00 Polyethylene Glycol (Miralax) 17 gm HSPRN PRN ORAL Constipation 01/24/18 21:00 02/23/18 20:59 Temazepam (Restoril) 15 mg HSPRN PRN ORAL Insomnia 01/24/18 21:00 01/31/18 20:59 Geraldine Hampton M.D. January 28, 2018 12:48
--- NOTE | 2018-01-28 13:03 | General Progress Note ---
Assessment/Plan Assessment/Plan anxiety pain med dependence rec change it to long acting opioids like methadone -ssris Subjective Date patient seen: January 28, 2018 Neurologic/Psychiatric: Reports: emotional problems Allergies: Coded Allergies: No Known Allergies (Unverified , 01/24/18) Subjective the pt c/o does not appear in pain the pt is defensive about talking pain meds and morphine. she stated that this md doesn't talk to her long enough and when i told her to talk and the pt stated " give me 90 secs" she was facebooking and not engaged. asked his nurse to give her morphine Objective Last 24 Hour Vital Signs Date Time Temp Pulse Resp B/P (MAP) Pulse Ox O2 Delivery O2 Flow Rate FiO2 01/28/18 11:17 97.9 01/28/18 08:00 97.9 52 18 146/72 94 Room Air 97.9 01/28/18 04:00 97.9 51 20 121/68 97 97.9 01/28/18 00:00 98.1 61 18 127/68 97 Nasal Cannula 1.0 98.1 01/27/18 20:00 98.4 58 20 132/63 96 98.4 01/27/18 16:32 98.2 57 20 130/73 97 Nasal Cannula 2.0 98.2 Intake and Output 01/27/18 01/28/18 19:00 07:00 Intake Total 1310 ml 800 ml Output Total 367 ml 260 ml Balance 943 ml 540 ml Intake Oral 0 ml IV Total 1310 ml 800 ml Output Urine Total 2 ml Gastric Drainage Total 350 ml 250 ml Drainage Total 15 ml 10 ml # Voids 1 Laboratory Tests 01/28/18 06:25: White Blood Count 6.6, Red Blood Count 3.18L, Hemoglobin 10.8L, Hematocrit 31.2L , Mean Corpuscular Volume 98, Mean Corpuscular Hemoglobin 34.0H, Mean Corpuscular Hemoglobin Concent 34.6, Red Cell Distribution Width 12.0, Platelet Count 316, Mean Platelet Volume 5.0L, Neutrophils (%) (Auto) 46.8, Lymphocytes ( %) (Auto) 39.8, Monocytes (%) (Auto) 7.8, Eosinophils (%) (Auto) 4.6H, Basophils (%) (Auto) 1.0, Sodium Level 139, Potassium Level 3.5, Chloride Level 104, Carbon Dioxide Level 30, Anion Gap 5, Blood Urea Nitrogen 5L, Creatinine 0.6, Estimat Glomerular Filtration Rate > 60, Glucose Level 89, Calcium Level 8.4L Height (Feet): 5 Height (Inches): 7.00 Weight (Pounds): 208 General Appearance: WD/WN, no apparent distress, alert Neurologic: oriented x 3, responsive, depressed affect - irritable Bob Viveros M.D. January 28, 2018 13:03
[2018-01-28] MEDS: cefTRIAXone 1 GM in NS 110 ML IVPB SCH (13:51)
--- NOTE | 2018-01-28 14:05 | Cardiology Report ---
APPROVED REPORT EKG Measurement Heart [id number] Normal sinus rhythm Normal ECG
[2018-01-28 16:00] VITALS: BP 137/66
--- NOTE | 2018-01-28 16:29 | General Surgery Progress Note ---
General Surgery-Progress Note Subjective Procedure Performed exploratory laparotomy , Gastrorrhaphy with sandra patch Symptoms: improved Objective Last 24 Hour Vital Signs Date Time Temp Pulse Resp B/P (MAP) Pulse Ox O2 Delivery O2 Flow Rate FiO2 01/28/18 16:00 99.5 52 18 137/66 99 99.5 01/28/18 11:17 97.9 01/28/18 08:00 97.9 52 18 146/72 94 Room Air 97.9 01/28/18 04:00 97.9 51 20 121/68 97 97.9 01/28/18 00:00 98.1 61 18 127/68 97 Nasal Cannula 1.0 98.1 01/27/18 20:00 98.4 58 20 132/63 96 98.4 01/27/18 16:32 98.2 57 20 130/73 97 Nasal Cannula 2.0 98.2 I&O Intake and Output 01/27/18 01/28/18 19:00 07:00 Intake Total 1310 ml 800 ml Output Total 367 ml 260 ml Balance 943 ml 540 ml Intake Oral 0 ml IV Total 1310 ml 800 ml Output Urine Total 2 ml Gastric Drainage Total 350 ml 250 ml Drainage Total 15 ml 10 ml # Voids 1 Wound: clean, intact Drains: elena Respiratory: clear Abdomen: soft, flat, tenderness, present bowel sounds Extremities: no tenderness Laboratory Tests Test 01/28/18 06:25 White Blood Count 6.6 K/UL (4.8-10.8) Red Blood Count 3.18 M/UL (4.20-5.40) L Hemoglobin 10.8 G/DL (12.0-16.0) L Hematocrit 31.2 % (37.0-47.0) L Mean Corpuscular Volume 98 FL (80-99) Mean Corpuscular Hemoglobin 34.0 PG (27.0-31.0) H Mean Corpuscular Hemoglobin Concent 34.6 G/DL (32.0-36.0) Red Cell Distribution Width 12.0 % (11.6-14.8) Platelet Count 316 K/UL (150-450) Mean Platelet Volume 5.0 FL (6.5-10.1) L Neutrophils (%) (Auto) 46.8 % (45.0-75.0) Lymphocytes (%) (Auto) 39.8 % (20.0-45.0) Monocytes (%) (Auto) 7.8 % (1.0-10.0) Eosinophils (%) (Auto) 4.6 % (0.0-3.0) H Basophils (%) (Auto) 1.0 % (0.0-2.0) Sodium Level 139 MMOL/L (136-145) Potassium Level 3.5 MMOL/L (3.5-5.1) Chloride Level 104 MMOL/L (98-107) Carbon Dioxide Level 30 MMOL/L (21-32) Anion Gap 5 mmol/L (5-15) Blood Urea Nitrogen 5 mg/dL (7-18) L Creatinine 0.6 MG/DL (0.55-1.30) Estimat Glomerular Filtration Rate > 60 mL/min (>60) Glucose Level 89 MG/DL (74-106) Calcium Level 8.4 MG/DL (8.5-10.1) L Assessment Post-op Diagnosis perforated duodenal ulcer Plan Additional Comments continue current treatment Mayank Owusu MD January 28, 2018 16:29
[2018-01-28 20:42] VITALS: BP 150/84
[2018-01-28] MEDS: Metoclopramide 10mg/2ml Inj IVP PRN (20:58)
[2018-01-29] VITALS: BP 136/76
[2018-01-29] MEDS: Morphine Sulfate 4mg/ml Inj IVP PRN ×7 (03:01→22:44)
[2018-01-29] MEDS: Dicyclomine 20mg/2ml Inj IM PRN (03:35)
[2018-01-29 04:00] VITALS: BP 134/78
[2018-01-29 07:27] LABS: BASOPHILS % (AUTO) 0.7 % (0.0-2.0); EOSINOPHILS % (AUTO) 4.8 % (0.0-3.0); HEMATOCRIT 29.9 % (37.0-47.0); HEMOGLOBIN 10.7 G/DL (12.0-16.0); LYMPHOCYTES % (AUTO) 31.6 % (20.0-45.0); MEAN CORPUSCULAR VOLUME 96 FL (80-99); MONOCYTES % (AUTO) 11.5 % (1.0-10.0); NEUTROPHILS % (AUTO) 51.4 % (45.0-75.0); PLATELET COUNT 335 K/UL (150-450); RED CELL DISTRIBUTION WIDTH 11.5 % (11.6-14.8); WHITE BLOOD COUNT 7.1 K/UL (4.8-10.8)
[2018-01-29 07:35] LABS: ANION GAP 7 mmol/L (5-15); BLOOD UREA NITROGEN 6 mg/dL (7-18); CALCIUM 8.6 MG/DL (8.5-10.1); CARBON DIOXIDE 29 MMOL/L (21-32); CHLORIDE 103 MMOL/L (98-107); CREATININE 0.6 MG/DL (0.55-1.30); POTASSIUM 3.6 MMOL/L (3.5-5.1); SODIUM 139 MMOL/L (136-145)
[2018-01-29 08:00] VITALS: BP 134/78
[2018-01-29] MEDS: D5 1/2NS w/KCl 20mEq 1,000 ML IV SCH ×3 (09:30→16:04)
[2018-01-29] MEDS: Pantoprazole Inj IVP SCH (09:48)
[2018-01-29] MEDS: Enoxaparin 40mg Inj SUBQ SCH (09:49)
--- NOTE | 2018-01-29 10:50 | Infectious Diseases Prog Note ---
Assessment/Plan Assessment/Plan ASSESSMENT: The patient is a 47-year-old female SP perforated duodenal ulcer status post postop (01/24/2018) CT of the abdomen: positive intraperitoneal air Leukocytosis, SP Rule out bacteremia -BCx NTD Hx of myomectomy PLAN: Cont patient on IV Rocephin and Flagyl d# 5/5-7 ( duration depend on the clinical course and removal of LATHA ) 01/24 SP Zosyn x 1 Monitor CBC. Monitor BMP. Monitor blood cultures. Surg following wound care per hosp protocol aspiration precautions Subjective Allergies: Coded Allergies: No Known Allergies (Unverified , 01/24/18) Subjective afebrile no leukocytosis Bcx NTD feeling better still NPO and NGT Objective Vital Signs Last 24 Hour Vital Signs Date Time Temp Pulse Resp B/P (MAP) Pulse Ox O2 Delivery O2 Flow Rate FiO2 01/29/18 10:17 97.9 01/29/18 09:47 97.9 01/29/18 04:00 97.9 48 19 134/78 95 97.9 01/29/18 00:00 96.6 48 19 136/76 95 96.6 01/28/18 20:42 99.0 66 20 150/84 95 99.0 01/28/18 16:00 99.5 52 18 137/66 99 99.5 Height (Feet): 5 Height (Inches): 7.00 Weight (Pounds): 208 Objective General Appearance: WD/WN, alert, mild distress EENT: PERRL/EOMI, normal ENT inspection Neck: non-tender, normal alignment, supple, normal inspection Cardiovascular: normal peripheral pulses, normal rate, regular rhythm, no gallop/murmur, no JVD Respiratory/Chest: chest wall non-tender, lungs clear, normal breath sounds, no respiratory distress, no accessory muscle use Abdomen: surgical dressings on palce, LATHA drain- serosanguineous fluid Extremities: normal range of motion, non-tender Neurologic: medical transcription radiology II-XII grossly normal, no motor/sensory deficits Skin: normal pigmentation Laboratory Tests Test 01/29/18 06:45 White Blood Count 7.1 K/UL (4.8-10.8) Red Blood Count 3.10 M/UL (4.20-5.40) L Hemoglobin 10.7 G/DL (12.0-16.0) L Hematocrit 29.9 % (37.0-47.0) L Mean Corpuscular Volume 96 FL (80-99) Mean Corpuscular Hemoglobin 34.6 PG (27.0-31.0) H Mean Corpuscular Hemoglobin Concent 35.9 G/DL (32.0-36.0) Red Cell Distribution Width 11.5 % (11.6-14.8) L Platelet Count 335 K/UL (150-450) Mean Platelet Volume 5.1 FL (6.5-10.1) L Neutrophils (%) (Auto) 51.4 % (45.0-75.0) Lymphocytes (%) (Auto) 31.6 % (20.0-45.0) Monocytes (%) (Auto) 11.5 % (1.0-10.0) H Eosinophils (%) (Auto) 4.8 % (0.0-3.0) H Basophils (%) (Auto) 0.7 % (0.0-2.0) Sodium Level 139 MMOL/L (136-145) Potassium Level 3.6 MMOL/L (3.5-5.1) Chloride Level 103 MMOL/L (98-107) Carbon Dioxide Level 29 MMOL/L (21-32) Anion Gap 7 mmol/L (5-15) Blood Urea Nitrogen 6 mg/dL (7-18) L Creatinine 0.6 MG/DL (0.55-1.30) Estimat Glomerular Filtration Rate > 60 mL/min (>60) Glucose Level 95 MG/DL (74-106) Calcium Level 8.6 MG/DL (8.5-10.1) Current Medications Medications (Trade) Dose Ordered Sig/Evelyn Route PRN Reason Start Time Stop Time Status Last Admin Dose Admin Acetaminophen (Tylenol) 650 mg Q4H PRN ORAL fever 01/24/18 15:30 02/23/18 15:29 Acetaminophen (Tylenol) 650 mg Q4H PRN RECTAL FEVER 01/24/18 18:45 02/23/18 18:44 Al Hydroxide/Mg Hydroxide (Mylanta II) 30 ml Q6H PRN ORAL dyspepsia 01/24/18 15:30 02/23/18 15:29 Ceftriaxone Sodium 1 gm/ Sodium Chloride 110 ml @ 220 mls/hr Q24H IVPB 01/25/18 15:00 02/01/18 14:59 01/28/18 13:51 Dextrose (Dextrose 50%) STAT PRN IV Hypoglycemia 01/24/18 15:30 02/23/18 15:29 Dextrose (Dextrose 50%) STAT PRN IV Hypoglycemia 01/25/18 10:15 02/24/18 10:14 Dextrose/ Electrolytes 1,000 ml @ 100 mls/hr Q10H IV 01/24/18 19:30 02/23/18 19:29 01/28/18 23:44 Dicyclomine HCl (Bentyl) 20 mg Q6H PRN IM Abdominal cramps 01/27/18 16:00 02/26/18 15:59 01/29/18 03:35 Diphenhydramine HCl (Benadryl) 25 mg Q6H PRN ORAL Itching/Pruritis 01/24/18 15:30 02/23/18 15:29 Enoxaparin Sodium (Lovenox) 40 mg DAILY SUBQ 01/25/18 09:00 02/24/18 08:59 01/29/18 09:49 Iopamidol (Isovue-300 100ml) 100 ml NOW PRN INJ Radiology Procedure 01/24/18 11:00 Metoclopramide HCl (Reglan) 10 mg Q6H PRN IVP Nausea & Vomiting 01/24/18 18:45 02/23/18 18:44 01/28/18 20:58 Metronidazole 100 ml @ 100 mls/hr Q8H IVPB 01/25/18 15:30 02/01/18 15:29 01/29/18 06:20 Morphine Sulfate (Morphine Sulfate) 10 mg Q3H PRN IVP For Pain 01/25/18 13:47 02/01/18 13:46 01/29/18 09:47 Nitroglycerin (Ntg) 0.4 mg Q5M X 3 DOSES PRN SL Prn Chest Pain 01/24/18 15:30 02/23/18 15:29 Ondansetron HCl (Zofran) 4 mg Q6H PRN IVP Nausea & Vomiting 01/24/18 15:30 02/23/18 15:29 01/29/18 09:48 Pantoprazole (Protonix) 40 mg DAILY IVP 01/25/18 09:00 02/24/18 08:59 01/29/18 09:48 Polyethylene Glycol (Miralax) 17 gm HSPRN PRN ORAL Constipation 01/24/18 21:00 02/23/18 20:59 Temazepam (Restoril) 15 mg HSPRN PRN ORAL Insomnia 01/24/18 21:00 01/31/18 20:59 Geraldine Hampton M.D. January 29, 2018 10:50
[2018-01-29 12:00] VITALS: BP_SYST 131; BP_SYST 145; BP_DIAS 72
--- NOTE | 2018-01-29 14:56 | General Surgery Progress Note ---
General Surgery-Progress Note Subjective Procedure Performed exploratory laparotomy , Gastrorrhaphy with sandra patch Objective Last 24 Hour Vital Signs Date Time Temp Pulse Resp B/P (MAP) Pulse Ox O2 Delivery O2 Flow Rate FiO2 01/29/18 13:00 97.9 01/29/18 12:00 98.2 52 18 145/72 99 98.2 01/29/18 10:17 97.9 01/29/18 09:47 97.9 01/29/18 08:00 97.9 48 19 134/78 95 97.9 01/29/18 04:00 97.9 48 19 134/78 95 97.9 01/29/18 00:00 96.6 48 19 136/76 95 96.6 01/28/18 20:42 99.0 66 20 150/84 95 99.0 01/28/18 16:00 99.5 52 18 137/66 99 99.5 I&O Intake and Output 01/28/18 01/29/18 19:00 07:00 # Voids 3 3 Wound: clean, intact Drains: elena Respiratory: clear Abdomen: soft, flat Extremities: no tenderness Laboratory Tests Test 01/29/18 06:45 White Blood Count 7.1 K/UL (4.8-10.8) Red Blood Count 3.10 M/UL (4.20-5.40) L Hemoglobin 10.7 G/DL (12.0-16.0) L Hematocrit 29.9 % (37.0-47.0) L Mean Corpuscular Volume 96 FL (80-99) Mean Corpuscular Hemoglobin 34.6 PG (27.0-31.0) H Mean Corpuscular Hemoglobin Concent 35.9 G/DL (32.0-36.0) Red Cell Distribution Width 11.5 % (11.6-14.8) L Platelet Count 335 K/UL (150-450) Mean Platelet Volume 5.1 FL (6.5-10.1) L Neutrophils (%) (Auto) 51.4 % (45.0-75.0) Lymphocytes (%) (Auto) 31.6 % (20.0-45.0) Monocytes (%) (Auto) 11.5 % (1.0-10.0) H Eosinophils (%) (Auto) 4.8 % (0.0-3.0) H Basophils (%) (Auto) 0.7 % (0.0-2.0) Sodium Level 139 MMOL/L (136-145) Potassium Level 3.6 MMOL/L (3.5-5.1) Chloride Level 103 MMOL/L (98-107) Carbon Dioxide Level 29 MMOL/L (21-32) Anion Gap 7 mmol/L (5-15) Blood Urea Nitrogen 6 mg/dL (7-18) L Creatinine 0.6 MG/DL (0.55-1.30) Estimat Glomerular Filtration Rate > 60 mL/min (>60) Glucose Level 95 MG/DL (74-106) Calcium Level 8.6 MG/DL (8.5-10.1) Assessment Post-op Diagnosis perforated duodenal ulcer Plan Additional Comments Continue present treatment Mayank Owusu MD January 29, 2018 14:56
[2018-01-29] MEDS: cefTRIAXone 1 GM in NS 110 ML IVPB SCH (15:20)
[2018-01-29 15:51] VITALS: BP 153/81
[2018-01-29] MEDS: Dicyclomine HCl 10mg/5ml oral soln ORAL PRN ×2 (15:55→22:52)
--- NOTE | 2018-01-29 16:15 | GI Progress Note ---
Assessment/Plan Problems: (1) Perforated abdominal viscus (2) Abdominal pain ICD Codes: R10.9 - Unspecified abdominal pain SNOMED: 62246745 Status: stable, unchanged Status Narrative Discussed with Dr. Byrd. Assessment/Plan perforated DU >> s/p Exploratory laparotomy, gastrorrhaphy with Grover post op care on ppi pain control >> ween fu H.pylori serology npo NGT for bowel decompression PT evaluation fu labs Subjective Subjective abdominal pain improving Objective Last 24 Hour Vital Signs Date Time Temp Pulse Resp B/P (MAP) Pulse Ox O2 Delivery O2 Flow Rate FiO2 01/29/18 16:11 98.8 01/29/18 15:51 98.8 56 21 153/81 97 Room Air 98.8 01/29/18 13:30 98.8 01/29/18 13:00 97.9 01/29/18 12:00 98.2 52 18 145/72 99 98.2 01/29/18 09:47 97.9 01/29/18 08:00 97.9 48 19 134/78 95 97.9 01/29/18 04:00 97.9 48 19 134/78 95 97.9 01/29/18 00:00 96.6 48 19 136/76 95 96.6 01/28/18 20:42 99.0 66 20 150/84 95 99.0 Intake and Output 01/28/18 01/29/18 19:00 07:00 # Voids 3 3 Laboratory Tests Test 01/29/18 06:45 White Blood Count 7.1 K/UL (4.8-10.8) Red Blood Count 3.10 M/UL (4.20-5.40) L Hemoglobin 10.7 G/DL (12.0-16.0) L Hematocrit 29.9 % (37.0-47.0) L Mean Corpuscular Volume 96 FL (80-99) Mean Corpuscular Hemoglobin 34.6 PG (27.0-31.0) H Mean Corpuscular Hemoglobin Concent 35.9 G/DL (32.0-36.0) Red Cell Distribution Width 11.5 % (11.6-14.8) L Platelet Count 335 K/UL (150-450) Mean Platelet Volume 5.1 FL (6.5-10.1) L Neutrophils (%) (Auto) 51.4 % (45.0-75.0) Lymphocytes (%) (Auto) 31.6 % (20.0-45.0) Monocytes (%) (Auto) 11.5 % (1.0-10.0) H Eosinophils (%) (Auto) 4.8 % (0.0-3.0) H Basophils (%) (Auto) 0.7 % (0.0-2.0) Sodium Level 139 MMOL/L (136-145) Potassium Level 3.6 MMOL/L (3.5-5.1) Chloride Level 103 MMOL/L (98-107) Carbon Dioxide Level 29 MMOL/L (21-32) Anion Gap 7 mmol/L (5-15) Blood Urea Nitrogen 6 mg/dL (7-18) L Creatinine 0.6 MG/DL (0.55-1.30) Estimat Glomerular Filtration Rate > 60 mL/min (>60) Glucose Level 95 MG/DL (74-106) Calcium Level 8.6 MG/DL (8.5-10.1) Height (Feet): 5 Height (Inches): 7.00 Weight (Pounds): 208 General Appearance: WD/WN, no apparent distress, alert Cardiovascular: normal rate Respiratory/Chest: normal breath sounds, no respiratory distress Abdominal Exam: normal bowel sounds, non tender, soft Extremities: normal range of motion, non-tender Denia Butcher NP January 29, 2018 16:15
--- NOTE | 2018-01-29 17:16 | Internal Med Progress Note ---
Subjective Date of Service: January 29, 2018 Physician Name JorgensenCharles Attending Physician James Murdock MD Current Medications Medications (Trade) Dose Ordered Sig/Evelyn Route PRN Reason Start Time Stop Time Status Last Admin Dose Admin Acetaminophen (Tylenol) 650 mg Q4H PRN ORAL fever 01/24/18 15:30 02/23/18 15:29 Acetaminophen (Tylenol) 650 mg Q4H PRN RECTAL FEVER 01/24/18 18:45 02/23/18 18:44 Al Hydroxide/Mg Hydroxide (Mylanta II) 30 ml Q6H PRN ORAL dyspepsia 01/24/18 15:30 02/23/18 15:29 Ceftriaxone Sodium 1 gm/ Sodium Chloride 110 ml @ 220 mls/hr Q24H IVPB 01/25/18 15:00 02/01/18 14:59 01/29/18 15:20 Dextrose (Dextrose 50%) STAT PRN IV Hypoglycemia 01/24/18 15:30 02/23/18 15:29 Dextrose (Dextrose 50%) STAT PRN IV Hypoglycemia 01/25/18 10:15 02/24/18 10:14 Dextrose/ Electrolytes 1,000 ml @ 100 mls/hr Q10H IV 01/24/18 19:30 02/23/18 19:29 01/29/18 16:04 Dicyclomine HCl (Bentyl) 10 mg TIDPRN PRN ORAL Abdominal cramps 01/29/18 11:15 02/28/18 11:14 01/29/18 15:55 Diphenhydramine HCl (Benadryl) 25 mg Q6H PRN ORAL Itching/Pruritis 01/24/18 15:30 02/23/18 15:29 Enoxaparin Sodium (Lovenox) 40 mg DAILY SUBQ 01/25/18 09:00 02/24/18 08:59 01/29/18 09:49 Iopamidol (Isovue-300 100ml) 100 ml NOW PRN INJ Radiology Procedure 01/24/18 11:00 Metoclopramide HCl (Reglan) 10 mg Q6H PRN IVP Nausea & Vomiting 01/24/18 18:45 02/23/18 18:44 01/28/18 20:58 Metronidazole 100 ml @ 100 mls/hr Q8H IVPB 01/25/18 15:30 02/01/18 15:29 01/29/18 16:32 Morphine Sulfate (Morphine Sulfate) 10 mg Q3H PRN IVP For Pain 01/25/18 13:47 02/01/18 13:46 01/29/18 16:11 Nitroglycerin (Ntg) 0.4 mg Q5M X 3 DOSES PRN SL Prn Chest Pain 01/24/18 15:30 02/23/18 15:29 Ondansetron HCl (Zofran) 4 mg Q6H PRN IVP Nausea & Vomiting 01/24/18 15:30 02/23/18 15:29 01/29/18 09:48 Pantoprazole (Protonix) 40 mg DAILY IVP 01/25/18 09:00 02/24/18 08:59 01/29/18 09:48 Polyethylene Glycol (Miralax) 17 gm HSPRN PRN ORAL Constipation 01/24/18 21:00 02/23/18 20:59 Temazepam (Restoril) 15 mg HSPRN PRN ORAL Insomnia 01/24/18 21:00 01/31/18 20:59 Allergies: Coded Allergies: No Known Allergies (Unverified , 01/24/18) ROS Limited/Unobtainable: No Constitutional: Reports: no symptoms HEENT: Reports: no symptoms Cardiovascular: Reports: no symptoms Respiratory: Reports: no symptoms Gastrointestinal/Abdominal: Reports: abdomen distended, abdominal pain Genitourinary: Reports: no symptoms Neurologic/Psychiatric: Reports: no symptoms Subjective 47 YO F admitted with abdominal pain; now perforated duodenal ulcer. S/P exploratory laparotomy 01/24/18. Cover for Eagle Murdock Objective Last Vital Signs Date Time Temp Pulse Resp B/P (MAP) Pulse Ox O2 Delivery O2 Flow Rate FiO2 01/29/18 16:11 98.8 01/29/18 15:51 56 21 153/81 97 Room Air 01/28/18 00:00 1.0 Laboratory Tests Test 01/29/18 06:45 White Blood Count 7.1 K/UL (4.8-10.8) Red Blood Count 3.10 M/UL (4.20-5.40) L Hemoglobin 10.7 G/DL (12.0-16.0) L Hematocrit 29.9 % (37.0-47.0) L Mean Corpuscular Volume 96 FL (80-99) Mean Corpuscular Hemoglobin 34.6 PG (27.0-31.0) H Mean Corpuscular Hemoglobin Concent 35.9 G/DL (32.0-36.0) Red Cell Distribution Width 11.5 % (11.6-14.8) L Platelet Count 335 K/UL (150-450) Mean Platelet Volume 5.1 FL (6.5-10.1) L Neutrophils (%) (Auto) 51.4 % (45.0-75.0) Lymphocytes (%) (Auto) 31.6 % (20.0-45.0) Monocytes (%) (Auto) 11.5 % (1.0-10.0) H Eosinophils (%) (Auto) 4.8 % (0.0-3.0) H Basophils (%) (Auto) 0.7 % (0.0-2.0) Sodium Level 139 MMOL/L (136-145) Potassium Level 3.6 MMOL/L (3.5-5.1) Chloride Level 103 MMOL/L (98-107) Carbon Dioxide Level 29 MMOL/L (21-32) Anion Gap 7 mmol/L (5-15) Blood Urea Nitrogen 6 mg/dL (7-18) L Creatinine 0.6 MG/DL (0.55-1.30) Estimat Glomerular Filtration Rate > 60 mL/min (>60) Glucose Level 95 MG/DL (74-106) Calcium Level 8.6 MG/DL (8.5-10.1) Intake and Output 01/28/18 01/29/18 19:00 07:00 # Voids 3 3 Objective General Appearance: WD/WN, alert, mild distress EENT: PERRL/EOMI, normal ENT inspection Neck: non-tender, normal alignment, supple, normal inspection Cardiovascular: normal peripheral pulses, normal rate, regular rhythm, no gallop/murmur, no JVD Respiratory/Chest: chest wall non-tender, lungs clear, normal breath sounds, no respiratory distress, no accessory muscle use Abdomen: NGT in place; decreased bowel sounds, distended, guarding, tender Extremities: normal range of motion, non-tender 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 Perforated duodenal ulcer s/p Exploratory laparotomy 01/24/18-see surgery note. 2. Abdominal pain Plan: NPO except med's NGT tube pain medication Protonix IV Abx: Rocephin and Flagyl. SCD Full code. Charles Jorgensen MD January 29, 2018 17:16
[2018-01-29] MEDS ORDERED: Hurricaine 20% Spray ORO PRN (17:30)
[2018-01-29] MEDS: Chloraseptic Spray 20mL Bottle ORAL PRN ×2 (18:53→23:03)
[2018-01-29 20:00] VITALS: BP 134/87
--- NOTE | 2018-01-29 23:36 | General Progress Note ---
Assessment/Plan Status: stable Assessment/Plan anxiety pain med dependence rec change it to long acting opioids like methadone -ssris Subjective Date patient seen: January 29, 2018 Neurologic/Psychiatric: Reports: anxiety, emotional problems Allergies: Coded Allergies: No Known Allergies (Unverified , 01/24/18) Subjective the pt just had morphine and was altered. the pt was unable to answer the questions appropriately and was dosing off Objective Last 24 Hour Vital Signs Date Time Temp Pulse Resp B/P (MAP) Pulse Ox O2 Delivery O2 Flow Rate FiO2 01/29/18 22:44 98.2 01/29/18 20:00 98.2 55 18 134/87 99 98.2 01/29/18 16:41 98.8 01/29/18 16:11 98.8 01/29/18 15:51 98.8 56 21 153/81 97 Room Air 98.8 01/29/18 13:00 97.9 01/29/18 12:00 98.2 52 18 145/72 99 98.2 01/29/18 09:47 97.9 01/29/18 08:00 97.9 48 19 134/78 95 97.9 01/29/18 04:00 97.9 48 19 134/78 95 97.9 01/29/18 00:00 96.6 48 19 136/76 95 96.6 Intake and Output 01/28/18 01/29/18 19:00 07:00 # Voids 3 3 Laboratory Tests 01/29/18 06:45: White Blood Count 7.1, Red Blood Count 3.10L, Hemoglobin 10.7L, Hematocrit 29.9L , Mean Corpuscular Volume 96, Mean Corpuscular Hemoglobin 34.6H, Mean Corpuscular Hemoglobin Concent 35.9, Red Cell Distribution Width 11.5L, Platelet Count 335, Mean Platelet Volume 5.1L, Neutrophils (%) (Auto) 51.4, Lymphocytes (%) (Auto) 31.6, Monocytes (%) (Auto) 11.5H, Eosinophils (%) (Auto) 4.8H, Basophils (%) (Auto) 0.7, Sodium Level 139, Potassium Level 3.6, Chloride Level 103, Carbon Dioxide Level 29, Anion Gap 7, Blood Urea Nitrogen 6L, Creatinine 0.6, Estimat Glomerular Filtration Rate > 60, Glucose Level 95, Calcium Level 8.6 Height (Feet): 5 Height (Inches): 7.00 Weight (Pounds): 208 General Appearance: no apparent distress, confused Bob Viveros M.D. January 29, 2018 23:36
[2018-01-30] VITALS: BP 144/71
[2018-01-30] MEDS: Morphine Sulfate 4mg/ml Inj IVP PRN ×7 (02:00→21:14)
[2018-01-30 04:00] VITALS: BP 135/69
[2018-01-30] MEDS: D5 1/2NS w/KCl 20mEq 1,000 ML IV SCH ×2 (05:33→15:09)
[2018-01-30] MEDS: Metoclopramide 10mg/2ml Inj IVP PRN ×3 (05:34→18:10)
[2018-01-30] MEDS: Chloraseptic Spray 20mL Bottle ORAL PRN ×2 (05:34→12:11)
[2018-01-30] MEDS: Dicyclomine HCl 10mg/5ml oral soln ORAL PRN ×2 (05:34→12:11)
[2018-01-30 07:45] LABS: BASOPHILS % (AUTO) 1.3 % (0.0-2.0); HEMATOCRIT 31.7 % (37.0-47.0); HEMOGLOBIN 11.2 G/DL (12.0-16.0); LYMPHOCYTES % (AUTO) 31.7 % (20.0-45.0); MEAN CORPUSCULAR VOLUME 97 FL (80-99); MONOCYTES % (AUTO) 10.2 % (1.0-10.0); NEUTROPHILS % (AUTO) 51.9 % (45.0-75.0); PLATELET COUNT 354 K/UL (150-450); RED BLOOD COUNT 3.26 M/UL (4.20-5.40); RED CELL DISTRIBUTION WIDTH 11.7 % (11.6-14.8); WHITE BLOOD COUNT 7.7 K/UL (4.8-10.8)
[2018-01-30 08:00] VITALS: BP 128/57
[2018-01-30 08:09] LABS: BLOOD UREA NITROGEN 4 mg/dL (7-18); CALCIUM 8.6 MG/DL (8.5-10.1); CARBON DIOXIDE 30 MMOL/L (21-32); CHLORIDE 102 MMOL/L (98-107); CREATININE 0.6 MG/DL (0.55-1.30); POTASSIUM 3.5 MMOL/L (3.5-5.1); SODIUM 138 MMOL/L (136-145)
[2018-01-30] MEDS: Pantoprazole Inj IVP SCH (08:35)
[2018-01-30] MEDS: Enoxaparin 40mg Inj SUBQ SCH (08:51)
--- NOTE | 2018-01-30 11:27 | GI Progress Note ---
Assessment/Plan Problems: (1) Perforated abdominal viscus (2) Abdominal pain ICD Codes: R10.9 - Unspecified abdominal pain SNOMED: [id number] Status: progressing Status Narrative Discussed with Dr. Byrd. Assessment/Plan perforated DU >> s/p Exploratory laparotomy, gastrorrhaphy with Grover post op care on ppi pain mgmt >> ween as tolerated fu H.pylori serology npo NGT for bowel decompression PT evaluation fu labs The patient was seen and examined at bedside and all new and available data was reviewed in the patients chart. I agree with the above findings, impression and plan. (Patient seen earlier today. Signature stamp does not reflect patient encounter time.). - Homar Byrd MD Subjective Subjective abdominal pain improving Objective Last 24 Hour Vital Signs Date Time Temp Pulse Resp B/P (MAP) Pulse Ox O2 Delivery O2 Flow Rate FiO2 01/30/18 08:00 97.7 55 14 128/57 98 Room Air 97.7 01/30/18 04:00 98.7 52 18 135/69 96 98.7 01/30/18 00:00 98.2 58 18 144/71 96 98.2 01/29/18 22:44 98.2 01/29/18 20:00 98.2 55 18 134/87 99 98.2 01/29/18 16:41 98.8 01/29/18 16:11 98.8 01/29/18 15:51 98.8 56 21 153/81 97 Room Air 98.8 01/29/18 13:00 97.9 01/29/18 12:00 98.2 52 18 145/72 99 98.2 Intake and Output 01/29/18 01/30/18 19:00 07:00 Intake Total 410 ml 100 ml Output Total 5 ml 255 ml Balance 405 ml -155 ml IV Total 410 ml 100 ml Gastric Drainage Total 250 ml Drainage Total 5 ml 5 ml # Voids 3 2 Laboratory Tests Test 01/30/18 05:20 White Blood Count 7.7 K/UL (4.8-10.8) Red Blood Count 3.26 M/UL (4.20-5.40) L Hemoglobin 11.2 G/DL (12.0-16.0) L Hematocrit 31.7 % (37.0-47.0) L Mean Corpuscular Volume 97 FL (80-99) Mean Corpuscular Hemoglobin 34.5 PG (27.0-31.0) H Mean Corpuscular Hemoglobin Concent 35.5 G/DL (32.0-36.0) Red Cell Distribution Width 11.7 % (11.6-14.8) Platelet Count 354 K/UL (150-450) Mean Platelet Volume 5.0 FL (6.5-10.1) L Neutrophils (%) (Auto) 51.9 % (45.0-75.0) Lymphocytes (%) (Auto) 31.7 % (20.0-45.0) Monocytes (%) (Auto) 10.2 % (1.0-10.0) H Eosinophils (%) (Auto) 5.0 % (0.0-3.0) H Basophils (%) (Auto) 1.3 % (0.0-2.0) Sodium Level 138 MMOL/L (136-145) Potassium Level 3.5 MMOL/L (3.5-5.1) Chloride Level 102 MMOL/L (98-107) Carbon Dioxide Level 30 MMOL/L (21-32) Blood Urea Nitrogen 4 mg/dL (7-18) L Creatinine 0.6 MG/DL (0.55-1.30) Estimat Glomerular Filtration Rate > 60 mL/min (>60) Glucose Level 94 MG/DL (74-106) Calcium Level 8.6 MG/DL (8.5-10.1) Height (Feet): 5 Height (Inches): 7.00 Weight (Pounds): 190 General Appearance: WD/WN, no apparent distress, alert Cardiovascular: normal rate Respiratory/Chest: normal breath sounds, no respiratory distress Abdominal Exam: normal bowel sounds, non tender, soft, incision site Extremities: normal range of motion, non-tender Denia Butcher NP January 30, 2018 11:27
--- NOTE | 2018-01-30 11:39 | Infectious Diseases Prog Note ---
Assessment/Plan Assessment/Plan ASSESSMENT: The patient is a 47-year-old female SP perforated duodenal ulcer status post postop (01/24/2018) CT of the abdomen: positive intraperitoneal air Leukocytosis, SP Rule out bacteremia -BCx NTD Hx of myomectomy PLAN: d/c farhat-op IV Rocephin and Flagyl d# 6 and monitor off abx 01/24 SP Zosyn x 1 Monitor CBC. Monitor BMP. Monitor blood cultures. Surg following wound care per hosp protocol aspiration precautions Subjective Allergies: Coded Allergies: No Known Allergies (Unverified , 01/24/18) Subjective afebrile no leukocytosis Bcx NTD feeling better minimal serosanguineous LATHA drainage Objective Vital Signs Last 24 Hour Vital Signs Date Time Temp Pulse Resp B/P (MAP) Pulse Ox O2 Delivery O2 Flow Rate FiO2 01/30/18 08:00 97.7 55 14 128/57 98 Room Air 97.7 01/30/18 04:00 98.7 52 18 135/69 96 98.7 01/30/18 00:00 98.2 58 18 144/71 96 98.2 01/29/18 22:44 98.2 01/29/18 20:00 98.2 55 18 134/87 99 98.2 01/29/18 16:41 98.8 01/29/18 16:11 98.8 01/29/18 15:51 98.8 56 21 153/81 97 Room Air 98.8 01/29/18 13:00 97.9 01/29/18 12:00 98.2 52 18 145/72 99 98.2 Height (Feet): 5 Height (Inches): 7.00 Weight (Pounds): 190 Objective General Appearance: WD/WN, alert, mild distress EENT: PERRL/EOMI, normal ENT inspection Neck: non-tender, normal alignment, supple, normal inspection Cardiovascular: normal peripheral pulses, normal rate, regular rhythm, no gallop/murmur, no JVD Respiratory/Chest: chest wall non-tender, lungs clear, normal breath sounds, no respiratory distress, no accessory muscle use Abdomen: surgical dressings on palce, LATHA drain- serosanguineous fluid Extremities: normal range of motion, non-tender 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, no motor/sensory deficits Skin: normal pigmentation Laboratory Tests Test 01/30/18 05:20 White Blood Count 7.7 K/UL (4.8-10.8) Red Blood Count 3.26 M/UL (4.20-5.40) L Hemoglobin 11.2 G/DL (12.0-16.0) L Hematocrit 31.7 % (37.0-47.0) L Mean Corpuscular Volume 97 FL (80-99) Mean Corpuscular Hemoglobin 34.5 PG (27.0-31.0) H Mean Corpuscular Hemoglobin Concent 35.5 G/DL (32.0-36.0) Red Cell Distribution Width 11.7 % (11.6-14.8) Platelet Count 354 K/UL (150-450) Mean Platelet Volume 5.0 FL (6.5-10.1) L Neutrophils (%) (Auto) 51.9 % (45.0-75.0) Lymphocytes (%) (Auto) 31.7 % (20.0-45.0) Monocytes (%) (Auto) 10.2 % (1.0-10.0) H Eosinophils (%) (Auto) 5.0 % (0.0-3.0) H Basophils (%) (Auto) 1.3 % (0.0-2.0) Sodium Level 138 MMOL/L (136-145) Potassium Level 3.5 MMOL/L (3.5-5.1) Chloride Level 102 MMOL/L (98-107) Carbon Dioxide Level 30 MMOL/L (21-32) Blood Urea Nitrogen 4 mg/dL (7-18) L Creatinine 0.6 MG/DL (0.55-1.30) Estimat Glomerular Filtration Rate > 60 mL/min (>60) Glucose Level 94 MG/DL (74-106) Calcium Level 8.6 MG/DL (8.5-10.1) Current Medications Medications (Trade) Dose Ordered Sig/Evelyn Route PRN Reason Start Time Stop Time Status Last Admin Dose Admin Acetaminophen (Tylenol) 650 mg Q4H PRN ORAL fever 01/24/18 15:30 02/23/18 15:29 Acetaminophen (Tylenol) 650 mg Q4H PRN RECTAL FEVER 01/24/18 18:45 02/23/18 18:44 Al Hydroxide/Mg Hydroxide (Mylanta II) 30 ml Q6H PRN ORAL dyspepsia 01/24/18 15:30 02/23/18 15:29 Ceftriaxone Sodium 1 gm/ Sodium Chloride 110 ml @ 220 mls/hr Q24H IVPB 01/25/18 15:00 02/01/18 14:59 01/29/18 15:20 Dextrose (Dextrose 50%) STAT PRN IV Hypoglycemia 01/24/18 15:30 02/23/18 15:29 Dextrose (Dextrose 50%) STAT PRN IV Hypoglycemia 01/25/18 10:15 02/24/18 10:14 Dextrose/ Electrolytes 1,000 ml @ 100 mls/hr Q10H IV 01/24/18 19:30 02/23/18 19:29 01/30/18 05:33 Dicyclomine HCl (Bentyl) 10 mg TIDPRN PRN ORAL Abdominal cramps 01/29/18 11:15 02/28/18 11:14 01/30/18 05:34 Diphenhydramine HCl (Benadryl) 25 mg Q6H PRN ORAL Itching/Pruritis 01/24/18 15:30 02/23/18 15:29 Enoxaparin Sodium (Lovenox) 40 mg DAILY SUBQ 01/25/18 09:00 02/24/18 08:59 01/30/18 08:51 Metoclopramide HCl (Reglan) 10 mg Q6H PRN IVP Nausea & Vomiting 01/24/18 18:45 02/23/18 18:44 01/30/18 05:34 Metronidazole 100 ml @ 100 mls/hr Q8H IVPB 01/25/18 15:30 02/01/18 15:29 01/30/18 08:43 Morphine Sulfate (Morphine Sulfate) 10 mg Q3H PRN IVP For Pain 01/25/18 13:47 02/01/18 13:46 01/30/18 08:36 Nitroglycerin (Ntg) 0.4 mg Q5M X 3 DOSES PRN SL Prn Chest Pain 01/24/18 15:30 02/23/18 15:29 Ondansetron HCl (Zofran) 4 mg Q6H PRN IVP Nausea & Vomiting 01/24/18 15:30 02/23/18 15:29 01/29/18 09:48 Pantoprazole (Protonix) 40 mg DAILY IVP 01/25/18 09:00 02/24/18 08:59 01/30/18 08:35 Phenol/Menthol (Chloraseptic) 1 spray Q4H PRN ORAL THROAT PAIN 01/29/18 18:00 02/28/18 17:59 01/30/18 05:34 Polyethylene Glycol (Miralax) 17 gm HSPRN PRN ORAL Constipation 01/24/18 21:00 02/23/18 20:59 Temazepam (Restoril) 15 mg HSPRN PRN ORAL Insomnia 01/24/18 21:00 01/31/18 20:59 Geraldine Hampton M.D. January 30, 2018 11:39
[2018-01-30 12:00] VITALS: BP 145/72
--- NOTE | 2018-01-30 12:40 | General Progress Note ---
Assessment/Plan Status: stable Assessment/Plan anxiety pain med dependence rec change it to long acting opioids like methadone -ssris -d/w Dr. roberts Subjective Date patient seen: January 30, 2018 Neurologic/Psychiatric: Reports: anxiety Allergies: Coded Allergies: No Known Allergies (Unverified , 01/24/18) Subjective the pt cont to have morphine around the clock the pt is pleasant as long as not talking about her drug dependence. Objective Last 24 Hour Vital Signs Date Time Temp Pulse Resp B/P (MAP) Pulse Ox O2 Delivery O2 Flow Rate FiO2 01/30/18 08:00 97.7 55 14 128/57 98 Room Air 97.7 01/30/18 04:00 98.7 52 18 135/69 96 98.7 01/30/18 00:00 98.2 58 18 144/71 96 98.2 01/29/18 22:44 98.2 01/29/18 20:00 98.2 55 18 134/87 99 98.2 01/29/18 16:41 98.8 01/29/18 16:11 98.8 01/29/18 15:51 98.8 56 21 153/81 97 Room Air 98.8 01/29/18 13:00 97.9 Intake and Output 01/29/18 01/30/18 19:00 07:00 Intake Total 410 ml 100 ml Output Total 5 ml 255 ml Balance 405 ml -155 ml IV Total 410 ml 100 ml Gastric Drainage Total 250 ml Drainage Total 5 ml 5 ml # Voids 3 2 Laboratory Tests 01/30/18 05:20: White Blood Count 7.7, Red Blood Count 3.26L, Hemoglobin 11.2L, Hematocrit 31.7L , Mean Corpuscular Volume 97, Mean Corpuscular Hemoglobin 34.5H, Mean Corpuscular Hemoglobin Concent 35.5, Red Cell Distribution Width 11.7, Platelet Count 354, Mean Platelet Volume 5.0L, Neutrophils (%) (Auto) 51.9, Lymphocytes ( %) (Auto) 31.7, Monocytes (%) (Auto) 10.2H, Eosinophils (%) (Auto) 5.0H, Basophils (%) (Auto) 1.3, Sodium Level 138, Potassium Level 3.5, Chloride Level 102, Carbon Dioxide Level 30, Blood Urea Nitrogen 4L, Creatinine 0.6, Estimat Glomerular Filtration Rate > 60, Glucose Level 94, Calcium Level 8.6 Height (Feet): 5 Height (Inches): 7.00 Weight (Pounds): 190 General Appearance: WD/WN, no apparent distress, alert Neurologic: oriented x 3, responsive, depressed affect Bob Viveros M.D. January 30, 2018 12:40
--- NOTE | 2018-01-30 12:47 | General Surgery Progress Note ---
General Surgery-Progress Note Subjective Procedure Performed exploratory laparotomy , Gastrorrhaphy with sandra patch Symptoms: improved Objective Last 24 Hour Vital Signs Date Time Temp Pulse Resp B/P (MAP) Pulse Ox O2 Delivery O2 Flow Rate FiO2 01/30/18 08:00 97.7 55 14 128/57 98 Room Air 97.7 01/30/18 04:00 98.7 52 18 135/69 96 98.7 01/30/18 00:00 98.2 58 18 144/71 96 98.2 01/29/18 22:44 98.2 01/29/18 20:00 98.2 55 18 134/87 99 98.2 01/29/18 16:41 98.8 01/29/18 16:11 98.8 01/29/18 15:51 98.8 56 21 153/81 97 Room Air 98.8 01/29/18 13:00 97.9 I&O Intake and Output 01/29/18 01/30/18 19:00 07:00 Intake Total 410 ml 100 ml Output Total 5 ml 255 ml Balance 405 ml -155 ml IV Total 410 ml 100 ml Gastric Drainage Total 250 ml Drainage Total 5 ml 5 ml # Voids 3 2 Wound: clean, intact Drains: elena Respiratory: clear Abdomen: soft, flat, tenderness Extremities: no edema, no tenderness Laboratory Tests Test 01/30/18 05:20 White Blood Count 7.7 K/UL (4.8-10.8) Red Blood Count 3.26 M/UL (4.20-5.40) L Hemoglobin 11.2 G/DL (12.0-16.0) L Hematocrit 31.7 % (37.0-47.0) L Mean Corpuscular Volume 97 FL (80-99) Mean Corpuscular Hemoglobin 34.5 PG (27.0-31.0) H Mean Corpuscular Hemoglobin Concent 35.5 G/DL (32.0-36.0) Red Cell Distribution Width 11.7 % (11.6-14.8) Platelet Count 354 K/UL (150-450) Mean Platelet Volume 5.0 FL (6.5-10.1) L Neutrophils (%) (Auto) 51.9 % (45.0-75.0) Lymphocytes (%) (Auto) 31.7 % (20.0-45.0) Monocytes (%) (Auto) 10.2 % (1.0-10.0) H Eosinophils (%) (Auto) 5.0 % (0.0-3.0) H Basophils (%) (Auto) 1.3 % (0.0-2.0) Sodium Level 138 MMOL/L (136-145) Potassium Level 3.5 MMOL/L (3.5-5.1) Chloride Level 102 MMOL/L (98-107) Carbon Dioxide Level 30 MMOL/L (21-32) Blood Urea Nitrogen 4 mg/dL (7-18) L Creatinine 0.6 MG/DL (0.55-1.30) Estimat Glomerular Filtration Rate > 60 mL/min (>60) Glucose Level 94 MG/DL (74-106) Calcium Level 8.6 MG/DL (8.5-10.1) Assessment Post-op Diagnosis perforated duodenal ulcer Plan Additional Comments remove NG tube Mayank Owusu MD January 30, 2018 12:47
[2018-01-30 15:40] VITALS: BP 125/58
[2018-01-30 19:51] VITALS: BP 152/83
--- NOTE | 2018-01-30 19:54 | Internal Med Progress Note ---
Subjective Date of Service: January 30, 2018 Physician Name Jorgensen,Charles Attending Physician James Murdock MD Current Medications Medications (Trade) Dose Ordered Sig/Evelyn Route PRN Reason Start Time Stop Time Status Last Admin Dose Admin Acetaminophen (Tylenol) 650 mg Q4H PRN ORAL fever 01/24/18 15:30 02/23/18 15:29 Acetaminophen (Tylenol) 650 mg Q4H PRN RECTAL FEVER 01/24/18 18:45 02/23/18 18:44 Al Hydroxide/Mg Hydroxide (Mylanta II) 30 ml Q6H PRN ORAL dyspepsia 01/24/18 15:30 02/23/18 15:29 Dextrose (Dextrose 50%) STAT PRN IV Hypoglycemia 01/24/18 15:30 02/23/18 15:29 Dextrose (Dextrose 50%) STAT PRN IV Hypoglycemia 01/25/18 10:15 02/24/18 10:14 Dextrose/ Electrolytes 1,000 ml @ 100 mls/hr Q10H IV 01/24/18 19:30 02/23/18 19:29 01/30/18 15:09 Dicyclomine HCl (Bentyl) 10 mg TIDPRN PRN ORAL Abdominal cramps 01/29/18 11:15 02/28/18 11:14 01/30/18 12:11 Diphenhydramine HCl (Benadryl) 25 mg Q6H PRN ORAL Itching/Pruritis 01/24/18 15:30 02/23/18 15:29 Enoxaparin Sodium (Lovenox) 40 mg DAILY SUBQ 01/25/18 09:00 02/24/18 08:59 01/30/18 08:51 Metoclopramide HCl (Reglan) 10 mg Q6H PRN IVP Nausea & Vomiting 01/24/18 18:45 02/23/18 18:44 01/30/18 18:10 Morphine Sulfate (Morphine Sulfate) 10 mg Q3H PRN IVP For Pain 01/25/18 13:47 02/01/18 13:46 01/30/18 18:10 Nitroglycerin (Ntg) 0.4 mg Q5M X 3 DOSES PRN SL Prn Chest Pain 01/24/18 15:30 02/23/18 15:29 Ondansetron HCl (Zofran) 4 mg Q6H PRN IVP Nausea & Vomiting 01/24/18 15:30 02/23/18 15:29 01/29/18 09:48 Pantoprazole (Protonix) 40 mg DAILY IVP 01/25/18 09:00 02/24/18 08:59 01/30/18 08:35 Phenol/Menthol (Chloraseptic) 1 spray Q4H PRN ORAL THROAT PAIN 01/29/18 18:00 02/28/18 17:59 01/30/18 12:11 Polyethylene Glycol (Miralax) 17 gm HSPRN PRN ORAL Constipation 01/24/18 21:00 02/23/18 20:59 Temazepam (Restoril) 15 mg HSPRN PRN ORAL Insomnia 01/24/18 21:00 01/31/18 20:59 Allergies: Coded Allergies: No Known Allergies (Unverified , 01/24/18) ROS Limited/Unobtainable: No Constitutional: Reports: no symptoms HEENT: Reports: no symptoms Cardiovascular: Reports: no symptoms Respiratory: Reports: no symptoms Gastrointestinal/Abdominal: Reports: abdomen distended, abdominal pain Genitourinary: Reports: no symptoms Neurologic/Psychiatric: Reports: no symptoms Subjective 47 YO F admitted with abdominal pain; now perforated duodenal ulcer. S/P exploratory laparotomy 01/24/18. Cover for Eagle Murdock Objective Last Vital Signs Date Time Temp Pulse Resp B/P (MAP) Pulse Ox O2 Delivery O2 Flow Rate FiO2 01/30/18 19:51 98.1 52 18 152/83 96 98.1 01/30/18 12:00 Room Air 01/28/18 00:00 1.0 Laboratory Tests Test 01/30/18 05:20 White Blood Count 7.7 K/UL (4.8-10.8) Red Blood Count 3.26 M/UL (4.20-5.40) L Hemoglobin 11.2 G/DL (12.0-16.0) L Hematocrit 31.7 % (37.0-47.0) L Mean Corpuscular Volume 97 FL (80-99) Mean Corpuscular Hemoglobin 34.5 PG (27.0-31.0) H Mean Corpuscular Hemoglobin Concent 35.5 G/DL (32.0-36.0) Red Cell Distribution Width 11.7 % (11.6-14.8) Platelet Count 354 K/UL (150-450) Mean Platelet Volume 5.0 FL (6.5-10.1) L Neutrophils (%) (Auto) 51.9 % (45.0-75.0) Lymphocytes (%) (Auto) 31.7 % (20.0-45.0) Monocytes (%) (Auto) 10.2 % (1.0-10.0) H Eosinophils (%) (Auto) 5.0 % (0.0-3.0) H Basophils (%) (Auto) 1.3 % (0.0-2.0) Sodium Level 138 MMOL/L (136-145) Potassium Level 3.5 MMOL/L (3.5-5.1) Chloride Level 102 MMOL/L (98-107) Carbon Dioxide Level 30 MMOL/L (21-32) Blood Urea Nitrogen 4 mg/dL (7-18) L Creatinine 0.6 MG/DL (0.55-1.30) Estimat Glomerular Filtration Rate > 60 mL/min (>60) Glucose Level 94 MG/DL (74-106) Calcium Level 8.6 MG/DL (8.5-10.1) Intake and Output 01/29/18 01/30/18 19:00 07:00 Intake Total 410 ml 100 ml Output Total 5 ml 255 ml Balance 405 ml -155 ml IV Total 410 ml 100 ml Gastric Drainage Total 250 ml Drainage Total 5 ml 5 ml # Voids 3 2 Objective General Appearance: WD/WN, alert, mild distress EENT: PERRL/EOMI, normal ENT inspection Neck: non-tender, normal alignment, supple, normal inspection Cardiovascular: normal peripheral pulses, normal rate, regular rhythm, no gallop/murmur, no JVD Respiratory/Chest: chest wall non-tender, lungs clear, normal breath sounds, no respiratory distress, no accessory muscle use Abdomen: NGT in place; decreased bowel sounds, distended, guarding, tender Extremities: normal range of motion, non-tender 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 Perforated duodenal ulcer s/p Exploratory laparotomy 01/24/18-see surgery note. 2. Abdominal pain Plan: NPO except med's NGT tube pain medication Protonix IV Abx: Rocephin and Flagyl. SCD Full code. Charles Jorgensen MD January 30, 2018 19:54
[2018-01-30] MEDS ORDERED: Sterile Water Irrig 1000ml IRRIG ONE (20:18)
[2018-01-30] MEDS ORDERED: Tubing IV Secondary IV ONE (20:18)
[2018-01-30] MEDS ORDERED: NS 275ml ONE (20:18)
[2018-01-31] VITALS: BP 129/80
[2018-01-31] MEDS: Morphine Sulfate 4mg/ml Inj IVP PRN ×4 (00:16→10:47)
[2018-01-31] MEDS: Metoclopramide 10mg/2ml Inj IVP PRN ×2 (00:23→06:23)
[2018-01-31] MEDS: D5 1/2NS w/KCl 20mEq 1,000 ML IV SCH ×3 (02:20→21:30)
[2018-01-31 04:00] VITALS: BP 131/74
[2018-01-31 08:00] VITALS: BP 136/82
[2018-01-31 09:06] LABS: BASOPHILS % (AUTO) 1.1 % (0.0-2.0); HEMATOCRIT 31.7 % (37.0-47.0); HEMOGLOBIN 11.2 G/DL (12.0-16.0); LYMPHOCYTES % (AUTO) 34.9 % (20.0-45.0); MEAN CORPUSCULAR VOLUME 97 FL (80-99); MONOCYTES % (AUTO) 12.3 % (1.0-10.0); NEUTROPHILS % (AUTO) 44.7 % (45.0-75.0); PLATELET COUNT 366 K/UL (150-450); RED BLOOD COUNT 3.27 M/UL (4.20-5.40); RED CELL DISTRIBUTION WIDTH 11.9 % (11.6-14.8); WHITE BLOOD COUNT 6.2 K/UL (4.8-10.8)
[2018-01-31 09:11] LABS: ANION GAP 6 mmol/L (5-15); BLOOD UREA NITROGEN 2 mg/dL (7-18); CALCIUM 8.5 MG/DL (8.5-10.1); CARBON DIOXIDE 28 MMOL/L (21-32); CHLORIDE 105 MMOL/L (98-107); CREATININE 0.6 MG/DL (0.55-1.30); POTASSIUM 3.6 MMOL/L (3.5-5.1); SODIUM 139 MMOL/L (136-145)
[2018-01-31] MEDS: Pantoprazole Inj IVP SCH (10:37)
[2018-01-31] MEDS: Enoxaparin 40mg Inj SUBQ SCH (10:38)
--- NOTE | 2018-01-31 11:19 | GI Progress Note ---
Assessment/Plan Problems: (1) Perforated abdominal viscus (2) Abdominal pain ICD Codes: R10.9 - Unspecified abdominal pain SNOMED: [id number] Status: progressing, unchanged Status Narrative Discussed with Dr. Byrd. Assessment/Plan perforated DU >> s/p Exploratory laparotomy, gastrorrhaphy with Grover post op care on ppi pain mgmt >> ween as tolerated fu H.pylori serology npo NGT for bowel decompression PT evaluation fu labs The patient was seen and examined at bedside and all new and available data was reviewed in the patients chart. I agree with the above findings, impression and plan. (Patient seen earlier today. Signature stamp does not reflect patient encounter time.). - Homar Byrd MD Subjective Subjective abdominal pain improving Objective Last 24 Hour Vital Signs Date Time Temp Pulse Resp B/P (MAP) Pulse Ox O2 Delivery O2 Flow Rate FiO2 01/31/18 08:00 97.7 65 18 136/82 97 97.7 01/31/18 07:50 Room Air 01/31/18 06:54 98.1 01/31/18 06:24 98.1 01/31/18 04:00 97.9 61 18 131/74 98 97.9 01/31/18 03:22 98.1 01/31/18 02:07 Room Air 01/31/18 00:16 98.1 01/31/18 00:00 98.1 55 18 129/80 95 98.1 01/30/18 21:14 98.1 01/30/18 20:00 Room Air 01/30/18 19:51 98.1 52 18 152/83 96 98.1 01/30/18 15:40 97.8 57 17 125/58 99 97.8 01/30/18 12:00 98.2 52 16 145/72 99 Room Air 98.2 Intake and Output 01/30/18 01/31/18 19:00 07:00 Intake Total 800 ml 1100 ml Output Total 100 ml 3 ml Balance 700 ml 1097 ml IV Total 800 ml 1100 ml Gastric Drainage Total 100 ml Drainage Total 3 ml # Voids 1 3 Laboratory Tests Test 01/31/18 08:35 White Blood Count 6.2 K/UL (4.8-10.8) Red Blood Count 3.27 M/UL (4.20-5.40) L Hemoglobin 11.2 G/DL (12.0-16.0) L Hematocrit 31.7 % (37.0-47.0) L Mean Corpuscular Volume 97 FL (80-99) Mean Corpuscular Hemoglobin 34.2 PG (27.0-31.0) H Mean Corpuscular Hemoglobin Concent 35.3 G/DL (32.0-36.0) Red Cell Distribution Width 11.9 % (11.6-14.8) Platelet Count 366 K/UL (150-450) Mean Platelet Volume 5.5 FL (6.5-10.1) L Neutrophils (%) (Auto) 44.7 % (45.0-75.0) L Lymphocytes (%) (Auto) 34.9 % (20.0-45.0) Monocytes (%) (Auto) 12.3 % (1.0-10.0) H Eosinophils (%) (Auto) 7.0 % (0.0-3.0) H Basophils (%) (Auto) 1.1 % (0.0-2.0) Sodium Level 139 MMOL/L (136-145) Potassium Level 3.6 MMOL/L (3.5-5.1) Chloride Level 105 MMOL/L (98-107) Carbon Dioxide Level 28 MMOL/L (21-32) Anion Gap 6 mmol/L (5-15) Blood Urea Nitrogen 2 mg/dL (7-18) L Creatinine 0.6 MG/DL (0.55-1.30) Estimat Glomerular Filtration Rate > 60 mL/min (>60) Glucose Level 109 MG/DL (74-106) H Calcium Level 8.5 MG/DL (8.5-10.1) Height (Feet): 5 Height (Inches): 7.00 Weight (Pounds): 190 General Appearance: WD/WN, no apparent distress, alert Cardiovascular: normal rate Respiratory/Chest: normal breath sounds, no respiratory distress Abdominal Exam: normal bowel sounds, non tender, soft Extremities: non-tender Denia Butcher [employer] January 31, 2018 11:19
[2018-01-31 12:00] VITALS: BP 128/70
--- NOTE | 2018-01-31 12:12 | General Surgery Progress Note ---
General Surgery-Progress Note Subjective Procedure Performed exploratory laparotomy , Gastrorrhaphy with sandra patch Symptoms: improved, passing flatus Objective Last 24 Hour Vital Signs Date Time Temp Pulse Resp B/P (MAP) Pulse Ox O2 Delivery O2 Flow Rate FiO2 01/31/18 08:00 97.7 65 18 136/82 97 97.7 01/31/18 07:50 Room Air 01/31/18 06:54 98.1 01/31/18 06:24 98.1 01/31/18 04:00 97.9 61 18 131/74 98 97.9 01/31/18 03:22 98.1 01/31/18 02:07 Room Air 01/31/18 00:16 98.1 01/31/18 00:00 98.1 55 18 129/80 95 98.1 01/30/18 21:14 98.1 01/30/18 20:00 Room Air 01/30/18 19:51 98.1 52 18 152/83 96 98.1 01/30/18 15:40 97.8 57 17 125/58 99 97.8 I&O Intake and Output 01/30/18 01/31/18 19:00 07:00 Intake Total 800 ml 1100 ml Output Total 100 ml 3 ml Balance 700 ml 1097 ml IV Total 800 ml 1100 ml Gastric Drainage Total 100 ml Drainage Total 3 ml # Voids 1 3 Respiratory: clear Abdomen: soft, flat, tenderness, present bowel sounds Extremities: no tenderness Laboratory Tests Test 01/31/18 08:35 White Blood Count 6.2 K/UL (4.8-10.8) Red Blood Count 3.27 M/UL (4.20-5.40) L Hemoglobin 11.2 G/DL (12.0-16.0) L Hematocrit 31.7 % (37.0-47.0) L Mean Corpuscular Volume 97 FL (80-99) Mean Corpuscular Hemoglobin 34.2 PG (27.0-31.0) H Mean Corpuscular Hemoglobin Concent 35.3 G/DL (32.0-36.0) Red Cell Distribution Width 11.9 % (11.6-14.8) Platelet Count 366 K/UL (150-450) Mean Platelet Volume 5.5 FL (6.5-10.1) L Neutrophils (%) (Auto) 44.7 % (45.0-75.0) L Lymphocytes (%) (Auto) 34.9 % (20.0-45.0) Monocytes (%) (Auto) 12.3 % (1.0-10.0) H Eosinophils (%) (Auto) 7.0 % (0.0-3.0) H Basophils (%) (Auto) 1.1 % (0.0-2.0) Sodium Level 139 MMOL/L (136-145) Potassium Level 3.6 MMOL/L (3.5-5.1) Chloride Level 105 MMOL/L (98-107) Carbon Dioxide Level 28 MMOL/L (21-32) Anion Gap 6 mmol/L (5-15) Blood Urea Nitrogen 2 mg/dL (7-18) L Creatinine 0.6 MG/DL (0.55-1.30) Estimat Glomerular Filtration Rate > 60 mL/min (>60) Glucose Level 109 MG/DL (74-106) H Calcium Level 8.5 MG/DL (8.5-10.1) Assessment Post-op Diagnosis perforated duodenal ulcer Plan Additional Comments clear liquid Mayank Owusu MD January 31, 2018 12:12
[2018-01-31] MEDS ORDERED: Morphine Sulfate 4mg/ml Inj IM PRN (14:00)
[2018-01-31] MEDS ORDERED: Morphine Sulfate 4mg/ml Inj IV PRN (14:12)
--- NOTE | 2018-01-31 15:48 | Infectious Diseases Prog Note ---
Assessment/Plan Assessment/Plan ASSESSMENT: The patient is a 47-year-old female SP perforated duodenal ulcer status post postop (01/24/2018) CT of the abdomen: positive intraperitoneal air Bcx neg Leukocytosis, SP Hx of myomectomy PLAN: -Continue to monitor off abx 01/30 SP Rocephin and Flagyl d# 6 01/24 SP Zosyn x 1 Monitor CBC. Monitor BMP. Surg following wound care per hosp protocol aspiration precautions Subjective Allergies: Coded Allergies: No Known Allergies (Unverified , 01/24/18) Subjective afebrile no leukocytosis Bcx Neg off abx now on clear liquids Objective Vital Signs Last 24 Hour Vital Signs Date Time Temp Pulse Resp B/P (MAP) Pulse Ox O2 Delivery O2 Flow Rate FiO2 01/31/18 15:22 98.2 01/31/18 12:00 98.2 60 20 128/70 98 98.2 01/31/18 12:00 Room Air 01/31/18 08:00 Room Air 01/31/18 08:00 97.7 65 18 136/82 97 97.7 01/31/18 07:50 Room Air 01/31/18 06:54 98.1 01/31/18 06:24 98.1 01/31/18 04:00 97.9 61 18 131/74 98 97.9 01/31/18 03:22 98.1 01/31/18 02:07 Room Air 01/31/18 00:16 98.1 01/31/18 00:00 98.1 55 18 129/80 95 98.1 01/30/18 21:14 98.1 01/30/18 20:00 Room Air 01/30/18 19:51 98.1 52 18 152/83 96 98.1 Height (Feet): 5 Height (Inches): 7.00 Weight (Pounds): 190 Objective General Appearance: WD/WN, alert, mild distress EENT: PERRL/EOMI, normal ENT inspection Neck: non-tender, normal alignment, supple, normal inspection Cardiovascular: normal peripheral pulses, normal rate, regular rhythm, no gallop/murmur, no JVD Respiratory/Chest: chest wall non-tender, lungs clear, normal breath sounds, no respiratory distress, no accessory muscle use Abdomen: surgical dressings on palce, LATHA drain- serosanguineous fluid Extremities: normal range of motion, non-tender 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, no motor/sensory deficits Skin: normal pigmentation Laboratory Tests Test 01/31/18 08:35 White Blood Count 6.2 K/UL (4.8-10.8) Red Blood Count 3.27 M/UL (4.20-5.40) L Hemoglobin 11.2 G/DL (12.0-16.0) L Hematocrit 31.7 % (37.0-47.0) L Mean Corpuscular Volume 97 FL (80-99) Mean Corpuscular Hemoglobin 34.2 PG (27.0-31.0) H Mean Corpuscular Hemoglobin Concent 35.3 G/DL (32.0-36.0) Red Cell Distribution Width 11.9 % (11.6-14.8) Platelet Count 366 K/UL (150-450) Mean Platelet Volume 5.5 FL (6.5-10.1) L Neutrophils (%) (Auto) 44.7 % (45.0-75.0) L Lymphocytes (%) (Auto) 34.9 % (20.0-45.0) Monocytes (%) (Auto) 12.3 % (1.0-10.0) H Eosinophils (%) (Auto) 7.0 % (0.0-3.0) H Basophils (%) (Auto) 1.1 % (0.0-2.0) Sodium Level 139 MMOL/L (136-145) Potassium Level 3.6 MMOL/L (3.5-5.1) Chloride Level 105 MMOL/L (98-107) Carbon Dioxide Level 28 MMOL/L (21-32) Anion Gap 6 mmol/L (5-15) Blood Urea Nitrogen 2 mg/dL (7-18) L Creatinine 0.6 MG/DL (0.55-1.30) Estimat Glomerular Filtration Rate > 60 mL/min (>60) Glucose Level 109 MG/DL (74-106) H Calcium Level 8.5 MG/DL (8.5-10.1) Current Medications Medications (Trade) Dose Ordered Sig/Evelyn Route PRN Reason Start Time Stop Time Status Last Admin Dose Admin Acetaminophen (Tylenol) 650 mg Q4H PRN ORAL fever 01/24/18 15:30 02/23/18 15:29 Acetaminophen (Tylenol) 650 mg Q4H PRN RECTAL FEVER 01/24/18 18:45 02/23/18 18:44 Al Hydroxide/Mg Hydroxide (Mylanta II) 30 ml Q6H PRN ORAL dyspepsia 01/24/18 15:30 02/23/18 15:29 Dextrose (Dextrose 50%) STAT PRN IV Hypoglycemia 01/24/18 15:30 02/23/18 15:29 Dextrose (Dextrose 50%) STAT PRN IV Hypoglycemia 01/25/18 10:15 02/24/18 10:14 Dextrose/ Electrolytes 1,000 ml @ 100 mls/hr Q10H IV 01/24/18 19:30 02/23/18 19:29 01/31/18 02:20 Dicyclomine HCl (Bentyl) 10 mg TIDPRN PRN ORAL Abdominal cramps 01/29/18 11:15 02/28/18 11:14 01/30/18 12:11 Diphenhydramine HCl (Benadryl) 25 mg Q6H PRN ORAL Itching/Pruritis 01/24/18 15:30 02/23/18 15:29 Enoxaparin Sodium (Lovenox) 40 mg DAILY SUBQ 01/25/18 09:00 02/24/18 08:59 01/31/18 10:38 Metoclopramide HCl (Reglan) 10 mg Q6H PRN IVP Nausea & Vomiting 01/24/18 18:45 02/23/18 18:44 01/31/18 06:23 Morphine Sulfate (Morphine Sulfate) 4 mg Q4H PRN IV For Pain 01/31/18 14:12 02/07/18 14:11 01/31/18 15:22 Nitroglycerin (Ntg) 0.4 mg Q5M X 3 DOSES PRN SL Prn Chest Pain 01/24/18 15:30 02/23/18 15:29 Ondansetron HCl (Zofran) 4 mg Q6H PRN IVP Nausea & Vomiting 01/24/18 15:30 02/23/18 15:29 01/29/18 09:48 Pantoprazole (Protonix) 40 mg DAILY IVP 01/25/18 09:00 02/24/18 08:59 01/31/18 10:37 Phenol/Menthol (Chloraseptic) 1 spray Q4H PRN ORAL THROAT PAIN 01/29/18 18:00 02/28/18 17:59 01/30/18 12:11 Polyethylene Glycol (Miralax) 17 gm HSPRN PRN ORAL Constipation 01/24/18 21:00 02/23/18 20:59 Temazepam (Restoril) 15 mg HSPRN PRN ORAL Insomnia 01/24/18 21:00 01/31/18 20:59 Geraldine Hampton M.D. January 31, 2018 15:48
[2018-01-31 16:00] VITALS: BP 144/78
--- NOTE | 2018-01-31 19:42 | Internal Med Progress Note ---
Subjective Date of Service: January 31, 2018 Physician Name Charles Jorgensen Attending Physician James Murdock MD Current Medications Medications (Trade) Dose Ordered Sig/Evelyn Route PRN Reason Start Time Stop Time Status Last Admin Dose Admin Acetaminophen (Tylenol) 650 mg Q4H PRN ORAL fever 01/24/18 15:30 02/23/18 15:29 Acetaminophen (Tylenol) 650 mg Q4H PRN RECTAL FEVER 01/24/18 18:45 02/23/18 18:44 Al Hydroxide/Mg Hydroxide (Mylanta II) 30 ml Q6H PRN ORAL dyspepsia 01/24/18 15:30 02/23/18 15:29 Dextrose (Dextrose 50%) STAT PRN IV Hypoglycemia 01/24/18 15:30 02/23/18 15:29 Dextrose (Dextrose 50%) STAT PRN IV Hypoglycemia 01/25/18 10:15 02/24/18 10:14 Dextrose/ Electrolytes 1,000 ml @ 100 mls/hr Q10H IV 01/24/18 19:30 02/23/18 19:29 01/31/18 16:03 Dicyclomine HCl (Bentyl) 10 mg TIDPRN PRN ORAL Abdominal cramps 01/29/18 11:15 02/28/18 11:14 01/30/18 12:11 Diphenhydramine HCl (Benadryl) 25 mg Q6H PRN ORAL Itching/Pruritis 01/24/18 15:30 02/23/18 15:29 Enoxaparin Sodium (Lovenox) 40 mg DAILY SUBQ 01/25/18 09:00 02/24/18 08:59 01/31/18 10:38 Metoclopramide HCl (Reglan) 10 mg Q6H PRN IVP Nausea & Vomiting 01/24/18 18:45 02/23/18 18:44 01/31/18 06:23 Morphine Sulfate (Morphine Sulfate) 4 mg Q4H PRN IV For Pain 01/31/18 14:12 02/07/18 14:11 01/31/18 15:22 Nitroglycerin (Ntg) 0.4 mg Q5M X 3 DOSES PRN SL Prn Chest Pain 01/24/18 15:30 02/23/18 15:29 Ondansetron HCl (Zofran) 4 mg Q6H PRN IVP Nausea & Vomiting 01/24/18 15:30 02/23/18 15:29 01/29/18 09:48 Pantoprazole (Protonix) 40 mg DAILY IVP 01/25/18 09:00 02/24/18 08:59 01/31/18 10:37 Phenol/Menthol (Chloraseptic) 1 spray Q4H PRN ORAL THROAT PAIN 01/29/18 18:00 02/28/18 17:59 01/30/18 12:11 Polyethylene Glycol (Miralax) 17 gm HSPRN PRN ORAL Constipation 01/24/18 21:00 02/23/18 20:59 Temazepam (Restoril) 15 mg HSPRN PRN ORAL Insomnia 01/24/18 21:00 01/31/18 20:59 Allergies: Coded Allergies: No Known Allergies (Unverified , 01/24/18) ROS Limited/Unobtainable: No Constitutional: Reports: no symptoms HEENT: Reports: no symptoms Cardiovascular: Reports: no symptoms Respiratory: Reports: no symptoms Gastrointestinal/Abdominal: Reports: abdomen distended, abdominal pain Genitourinary: Reports: no symptoms Neurologic/Psychiatric: Reports: no symptoms Subjective 47 YO F admitted with abdominal pain; now perforated duodenal ulcer. S/P exploratory laparotomy 01/24/18. Cover for Eagle Murdock Objective Last Vital Signs Date Time Temp Pulse Resp B/P (MAP) Pulse Ox O2 Delivery O2 Flow Rate FiO2 01/31/18 16:00 98.2 62 20 144/78 97 98.2 01/31/18 12:00 Room Air 01/28/18 00:00 1.0 Laboratory Tests Test 01/31/18 08:35 White Blood Count 6.2 K/UL (4.8-10.8) Red Blood Count 3.27 M/UL (4.20-5.40) L Hemoglobin 11.2 G/DL (12.0-16.0) L Hematocrit 31.7 % (37.0-47.0) L Mean Corpuscular Volume 97 FL (80-99) Mean Corpuscular Hemoglobin 34.2 PG (27.0-31.0) H Mean Corpuscular Hemoglobin Concent 35.3 G/DL (32.0-36.0) Red Cell Distribution Width 11.9 % (11.6-14.8) Platelet Count 366 K/UL (150-450) Mean Platelet Volume 5.5 FL (6.5-10.1) L Neutrophils (%) (Auto) 44.7 % (45.0-75.0) L Lymphocytes (%) (Auto) 34.9 % (20.0-45.0) Monocytes (%) (Auto) 12.3 % (1.0-10.0) H Eosinophils (%) (Auto) 7.0 % (0.0-3.0) H Basophils (%) (Auto) 1.1 % (0.0-2.0) Sodium Level 139 MMOL/L (136-145) Potassium Level 3.6 MMOL/L (3.5-5.1) Chloride Level 105 MMOL/L (98-107) Carbon Dioxide Level 28 MMOL/L (21-32) Anion Gap 6 mmol/L (5-15) Blood Urea Nitrogen 2 mg/dL (7-18) L Creatinine 0.6 MG/DL (0.55-1.30) Estimat Glomerular Filtration Rate > 60 mL/min (>60) Glucose Level 109 MG/DL (74-106) H Calcium Level 8.5 MG/DL (8.5-10.1) Intake and Output 01/30/18 01/31/18 19:00 07:00 Intake Total 800 ml 1100 ml Output Total 100 ml 3 ml Balance 700 ml 1097 ml IV Total 800 ml 1100 ml Gastric Drainage Total 100 ml Drainage Total 3 ml # Voids 1 3 Objective General Appearance: WD/WN, alert, mild distress EENT: PERRL/EOMI, normal ENT inspection Neck: non-tender, normal alignment, supple, normal inspection Cardiovascular: normal peripheral pulses, normal rate, regular rhythm, no gallop/murmur, no JVD Respiratory/Chest: chest wall non-tender, lungs clear, normal breath sounds, no respiratory distress, no accessory muscle use Abdomen: NGT in place; decreased bowel sounds, distended, guarding, tender Extremities: normal range of motion, non-tender 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 Perforated duodenal ulcer s/p Exploratory laparotomy 01/24/18-see surgery note. 2. Abdominal pain Plan: Clear liquid diet D/C NGT tube pain medication Protonix IV Abx: Rocephin and Flagyl. SCD Full code. Charles Jorgensen MD January 31, 2018 19:42
[2018-01-31] MEDS: Morphine Sulfate 4mg/ml Inj IV PRN (20:13)
[2018-01-31 20:28] VITALS: BP 136/85
[2018-02-01 00:41] VITALS: BP 126/76
[2018-02-01] MEDS: Morphine Sulfate 4mg/ml Inj IV PRN ×3 (00:59→10:36)
[2018-02-01 04:00] VITALS: BP 133/79
[2018-02-01] MEDS: D5 1/2NS w/KCl 20mEq 1,000 ML IV SCH (05:10)
[2018-02-01 07:42] LABS: BASOPHILS % (AUTO) 1.1 % (0.0-2.0); EOSINOPHILS % (AUTO) 6.2 % (0.0-3.0); HEMATOCRIT 30.3 % (37.0-47.0); HEMOGLOBIN 10.5 G/DL (12.0-16.0); LYMPHOCYTES % (AUTO) 43.5 % (20.0-45.0); MEAN CORPUSCULAR VOLUME 97 FL (80-99); MONOCYTES % (AUTO) 10.6 % (1.0-10.0); NEUTROPHILS % (AUTO) 38.6 % (45.0-75.0); PLATELET COUNT 373 K/UL (150-450); RED BLOOD COUNT 3.13 M/UL (4.20-5.40); RED CELL DISTRIBUTION WIDTH 11.6 % (11.6-14.8); WHITE BLOOD COUNT 5.7 K/UL (4.8-10.8)
[2018-02-01 08:00] VITALS: BP 119/72
[2018-02-01 08:01] LABS: ANION GAP 8 mmol/L (5-15); BLOOD UREA NITROGEN 1 mg/dL (7-18); CALCIUM 8.5 MG/DL (8.5-10.1); CARBON DIOXIDE 29 MMOL/L (21-32); CHLORIDE 104 MMOL/L (98-107); CREATININE 0.6 MG/DL (0.55-1.30); POTASSIUM 3.3 MMOL/L (3.5-5.1); SODIUM 140 MMOL/L (136-145)
[2018-02-01] MEDS: Pantoprazole Inj IVP SCH (10:35)
[2018-02-01] MEDS: Enoxaparin 40mg Inj SUBQ SCH (10:39)
--- NOTE | 2018-02-01 11:29 | Infectious Diseases Prog Note ---
Assessment/Plan Assessment/Plan ASSESSMENT: The patient is a 47-year-old female SP perforated duodenal ulcer status post postop (01/24/2018) CT of the abdomen: positive intraperitoneal air Bcx neg Leukocytosis, SP Hx of myomectomy PLAN: -Continue to monitor off abx 01/30 SP Rocephin and Flagyl d# 6 01/24 SP Zosyn x 1 Monitor CBC. Monitor BMP. Surg following wound care per hosp protocol aspiration precautions Subjective Allergies: Coded Allergies: No Known Allergies (Unverified , 01/24/18) Subjective afebrile no leukocytosis off abx now on clear liquids Objective Vital Signs Last 24 Hour Vital Signs Date Time Temp Pulse Resp B/P (MAP) Pulse Ox O2 Delivery O2 Flow Rate FiO2 02/01/18 10:36 97.6 02/01/18 08:00 97.6 61 19 119/72 98 97.6 02/01/18 04:00 98.1 57 19 133/79 98 Room Air 98.1 02/01/18 00:41 98.1 51 19 126/76 95 98.1 01/31/18 20:28 98.8 62 18 136/85 96 98.8 01/31/18 16:00 98.2 62 20 144/78 97 98.2 01/31/18 15:52 98.2 01/31/18 15:22 98.2 01/31/18 12:00 98.2 60 20 128/70 98 98.2 01/31/18 12:00 Room Air Height (Feet): 5 Height (Inches): 7.00 Weight (Pounds): 190 Objective General Appearance: WD/WN, alert, mild distress EENT: PERRL/EOMI, normal ENT inspection Neck: non-tender, normal alignment, supple, normal inspection Cardiovascular: normal peripheral pulses, normal rate, regular rhythm, no gallop/murmur, no JVD Respiratory/Chest: chest wall non-tender, lungs clear, normal breath sounds, no respiratory distress, no accessory muscle use Abdomen: surgical incision no signs of inefction, LATHA drain- minimal serosanguineous fluid Extremities: normal range of motion, non-tender 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, no motor/sensory deficits Skin: normal pigmentation Laboratory Tests Test 02/01/18 06:10 White Blood Count 5.7 K/UL (4.8-10.8) Red Blood Count 3.13 M/UL (4.20-5.40) L Hemoglobin 10.5 G/DL (12.0-16.0) L Hematocrit 30.3 % (37.0-47.0) L Mean Corpuscular Volume 97 FL (80-99) Mean Corpuscular Hemoglobin 33.7 PG (27.0-31.0) H Mean Corpuscular Hemoglobin Concent 34.8 G/DL (32.0-36.0) Red Cell Distribution Width 11.6 % (11.6-14.8) Platelet Count 373 K/UL (150-450) Mean Platelet Volume 5.2 FL (6.5-10.1) L Neutrophils (%) (Auto) 38.6 % (45.0-75.0) L Lymphocytes (%) (Auto) 43.5 % (20.0-45.0) Monocytes (%) (Auto) 10.6 % (1.0-10.0) H Eosinophils (%) (Auto) 6.2 % (0.0-3.0) H Basophils (%) (Auto) 1.1 % (0.0-2.0) Sodium Level 140 MMOL/L (136-145) Potassium Level 3.3 MMOL/L (3.5-5.1) L Chloride Level 104 MMOL/L (98-107) Carbon Dioxide Level 29 MMOL/L (21-32) Anion Gap 8 mmol/L (5-15) Blood Urea Nitrogen 1 mg/dL (7-18) L Creatinine 0.6 MG/DL (0.55-1.30) Estimat Glomerular Filtration Rate > 60 mL/min (>60) Glucose Level 95 MG/DL (74-106) Calcium Level 8.5 MG/DL (8.5-10.1) Current Medications Medications (Trade) Dose Ordered Sig/Evelyn Route PRN Reason Start Time Stop Time Status Last Admin Dose Admin Acetaminophen (Tylenol) 650 mg Q4H PRN ORAL fever 01/24/18 15:30 02/23/18 15:29 Acetaminophen (Tylenol) 650 mg Q4H PRN RECTAL FEVER 01/24/18 18:45 02/23/18 18:44 Al Hydroxide/Mg Hydroxide (Mylanta II) 30 ml Q6H PRN ORAL dyspepsia 01/24/18 15:30 02/23/18 15:29 Dextrose (Dextrose 50%) STAT PRN IV Hypoglycemia 01/24/18 15:30 02/23/18 15:29 Dextrose (Dextrose 50%) STAT PRN IV Hypoglycemia 01/25/18 10:15 02/24/18 10:14 Dextrose/ Electrolytes 1,000 ml @ 100 mls/hr Q10H IV 01/24/18 19:30 02/23/18 19:29 02/01/18 05:10 Dicyclomine HCl (Bentyl) 10 mg TIDPRN PRN ORAL Abdominal cramps 01/29/18 11:15 02/28/18 11:14 01/30/18 12:11 Diphenhydramine HCl (Benadryl) 25 mg Q6H PRN ORAL Itching/Pruritis 01/24/18 15:30 02/23/18 15:29 02/01/18 10:35 Enoxaparin Sodium (Lovenox) 40 mg DAILY SUBQ 01/25/18 09:00 02/24/18 08:59 02/01/18 10:39 Metoclopramide HCl (Reglan) 10 mg Q6H PRN IVP Nausea & Vomiting 01/24/18 18:45 02/23/18 18:44 01/31/18 06:23 Morphine Sulfate (Morphine Sulfate) 6 mg Q4H PRN IV For Pain 01/31/18 20:00 02/07/18 19:59 02/01/18 10:36 Nitroglycerin (Ntg) 0.4 mg Q5M X 3 DOSES PRN SL Prn Chest Pain 01/24/18 15:30 02/23/18 15:29 Ondansetron HCl (Zofran) 4 mg Q6H PRN IVP Nausea & Vomiting 01/24/18 15:30 02/23/18 15:29 01/29/18 09:48 Pantoprazole (Protonix) 40 mg DAILY IVP 01/25/18 09:00 02/24/18 08:59 02/01/18 10:35 Phenol/Menthol (Chloraseptic) 1 spray Q4H PRN ORAL THROAT PAIN 01/29/18 18:00 02/28/18 17:59 01/30/18 12:11 Polyethylene Glycol (Miralax) 17 gm HSPRN PRN ORAL Constipation 01/24/18 21:00 02/23/18 20:59 Geraldine Hampton M.D. February 01, 2018 11:29
--- NOTE | 2018-02-01 12:22 | GI Progress Note ---
Assessment/Plan Problems: (1) Perforated abdominal viscus (2) Abdominal pain ICD Codes: R10.9 - Unspecified abdominal pain SNOMED: 73956570 Status: progressing Status Narrative Discussed with Dr. Byrd. Assessment/Plan perforated DU >> s/p Exploratory laparotomy, gastrorrhaphy with [place] post op care on ppi pain mgmt >> ween as tolerated fu H.pylori serology npo NGT for bowel decompression PT evaluation fu labs The patient was seen and examined at bedside and all new and available data was reviewed in the patients chart. I agree with the above findings, impression and plan. (Patient seen earlier today. Signature stamp does not reflect patient encounter time.). - Homar Byrd MD Subjective Subjective abdominal pain improving Objective Last 24 Hour Vital Signs Date Time Temp Pulse Resp B/P (MAP) Pulse Ox O2 Delivery O2 Flow Rate FiO2 02/01/18 11:06 97.6 02/01/18 10:36 97.6 02/01/18 08:00 97.6 61 19 119/72 98 97.6 02/01/18 04:00 98.1 57 19 133/79 98 Room Air 98.1 02/01/18 00:41 98.1 51 19 126/76 95 98.1 01/31/18 20:28 98.8 62 18 136/85 96 98.8 01/31/18 16:00 98.2 62 20 144/78 97 98.2 01/31/18 15:52 98.2 01/31/18 15:22 98.2 Intake and Output 01/31/18 02/01/18 19:00 07:00 Intake Total 980 ml 1500 ml Output Total 5 ml Balance 980 ml 1495 ml Intake Oral 380 ml 300 ml IV Total 600 ml 1200 ml Drainage Total 5 ml # Voids 4 2 Laboratory Tests Test 02/01/18 06:10 White Blood Count 5.7 K/UL (4.8-10.8) Red Blood Count 3.13 M/UL (4.20-5.40) L Hemoglobin 10.5 G/DL (12.0-16.0) L Hematocrit 30.3 % (37.0-47.0) L Mean Corpuscular Volume 97 FL (80-99) Mean Corpuscular Hemoglobin 33.7 PG (27.0-31.0) H Mean Corpuscular Hemoglobin Concent 34.8 G/DL (32.0-36.0) Red Cell Distribution Width 11.6 % (11.6-14.8) Platelet Count 373 K/UL (150-450) Mean Platelet Volume 5.2 FL (6.5-10.1) L Neutrophils (%) (Auto) 38.6 % (45.0-75.0) L Lymphocytes (%) (Auto) 43.5 % (20.0-45.0) Monocytes (%) (Auto) 10.6 % (1.0-10.0) H Eosinophils (%) (Auto) 6.2 % (0.0-3.0) H Basophils (%) (Auto) 1.1 % (0.0-2.0) Sodium Level 140 MMOL/L (136-145) Potassium Level 3.3 MMOL/L (3.5-5.1) L Chloride Level 104 MMOL/L (98-107) Carbon Dioxide Level 29 MMOL/L (21-32) Anion Gap 8 mmol/L (5-15) Blood Urea Nitrogen 1 mg/dL (7-18) L Creatinine 0.6 MG/DL (0.55-1.30) Estimat Glomerular Filtration Rate > 60 mL/min (>60) Glucose Level 95 MG/DL (74-106) Calcium Level 8.5 MG/DL (8.5-10.1) Height (Feet): 5 Height (Inches): 7.00 Weight (Pounds): 190 General Appearance: WD/WN, no apparent distress, alert Cardiovascular: normal rate Respiratory/Chest: normal breath sounds, no respiratory distress Abdominal Exam: normal bowel sounds, non tender, soft Extremities: normal range of motion, non-tender Denia Butcher NP February 01, 2018 12:22
--- NOTE | 2018-02-01 14:08 | General Surgery Progress Note ---
General Surgery-Progress Note Subjective Procedure Performed exploratory laparotomy , Gastrorrhaphy with sandra patch Symptoms: improved, passing flatus, BM Objective Last 24 Hour Vital Signs Date Time Temp Pulse Resp B/P (MAP) Pulse Ox O2 Delivery O2 Flow Rate FiO2 02/01/18 11:06 97.6 02/01/18 10:36 97.6 02/01/18 08:00 97.6 61 19 119/72 98 97.6 02/01/18 04:00 98.1 57 19 133/79 98 Room Air 98.1 02/01/18 00:41 98.1 51 19 126/76 95 98.1 01/31/18 20:28 98.8 62 18 136/85 96 98.8 01/31/18 16:00 98.2 62 20 144/78 97 98.2 01/31/18 15:52 98.2 01/31/18 15:22 98.2 I&O Intake and Output 01/31/18 02/01/18 19:00 07:00 Intake Total 980 ml 1500 ml Output Total 5 ml Balance 980 ml 1495 ml Intake Oral 380 ml 300 ml IV Total 600 ml 1200 ml Drainage Total 5 ml # Voids 4 2 Wound: clean, intact Drains: elena Respiratory: clear Abdomen: soft, flat, tenderness, present bowel sounds Extremities: no tenderness Laboratory Tests Test 02/01/18 06:10 White Blood Count 5.7 K/UL (4.8-10.8) Red Blood Count 3.13 M/UL (4.20-5.40) L Hemoglobin 10.5 G/DL (12.0-16.0) L Hematocrit 30.3 % (37.0-47.0) L Mean Corpuscular Volume 97 FL (80-99) Mean Corpuscular Hemoglobin 33.7 PG (27.0-31.0) H Mean Corpuscular Hemoglobin Concent 34.8 G/DL (32.0-36.0) Red Cell Distribution Width 11.6 % (11.6-14.8) Platelet Count 373 K/UL (150-450) Mean Platelet Volume 5.2 FL (6.5-10.1) L Neutrophils (%) (Auto) 38.6 % (45.0-75.0) L Lymphocytes (%) (Auto) 43.5 % (20.0-45.0) Monocytes (%) (Auto) 10.6 % (1.0-10.0) H Eosinophils (%) (Auto) 6.2 % (0.0-3.0) H Basophils (%) (Auto) 1.1 % (0.0-2.0) Sodium Level 140 MMOL/L (136-145) Potassium Level 3.3 MMOL/L (3.5-5.1) L Chloride Level 104 MMOL/L (98-107) Carbon Dioxide Level 29 MMOL/L (21-32) Anion Gap 8 mmol/L (5-15) Blood Urea Nitrogen 1 mg/dL (7-18) L Creatinine 0.6 MG/DL (0.55-1.30) Estimat Glomerular Filtration Rate > 60 mL/min (>60) Glucose Level 95 MG/DL (74-106) Calcium Level 8.5 MG/DL (8.5-10.1) Assessment Post-op Diagnosis perforated duodenal ulcer Plan Additional Comments Advance diet Mayank Owusu MD February 01, 2018 14:08
[2018-02-01] MEDS ORDERED: Morphine Sulfate 4mg/ml Inj IVP PRN (14:22)
[2018-02-01 16:00] VITALS: BP 119/65
--- NOTE | 2018-02-01 19:36 | Internal Med Progress Note ---
Subjective Date of Service: February 01, 2018 Physician Name Jorgensen,Charles Attending Physician James Murdock MD Current Medications Medications (Trade) Dose Ordered Sig/Evelyn Route PRN Reason Start Time Stop Time Status Last Admin Dose Admin Acetaminophen (Tylenol) 650 mg Q4H PRN ORAL fever 01/24/18 15:30 02/23/18 15:29 Acetaminophen/ Hydrocodone Bitart ([place] 10/325) 1 tab Q4H PRN ORAL For Pain 02/01/18 19:15 02/08/18 19:14 Al Hydroxide/Mg Hydroxide (Mylanta II) 30 ml Q6H PRN ORAL dyspepsia 01/24/18 15:30 02/23/18 15:29 Dextrose (Dextrose 50%) 25 ml STAT PRN IV Hypoglycemia 02/01/18 18:45 03/03/18 18:44 Dextrose (Dextrose 50%) 50 ml STAT PRN IV Hypoglycemia 02/01/18 18:45 03/03/18 18:44 Dicyclomine HCl (Bentyl) 10 mg TIDPRN PRN ORAL Abdominal cramps 01/29/18 11:15 02/28/18 11:14 01/30/18 12:11 Diphenhydramine HCl (Benadryl) 25 mg Q6H PRN ORAL Itching/Pruritis 01/24/18 15:30 02/23/18 15:29 02/01/18 10:35 Enoxaparin Sodium (Lovenox) 40 mg DAILY SUBQ 01/25/18 09:00 02/24/18 08:59 02/01/18 10:39 Metoclopramide HCl (Reglan) 10 mg THREE TIMES A DAY ORAL 02/01/18 18:00 03/03/18 17:59 02/01/18 18:29 Nitroglycerin (Ntg) 0.4 mg Q5M X 3 DOSES PRN SL Prn Chest Pain 01/24/18 15:30 02/23/18 15:29 Ondansetron HCl (Zofran) 4 mg Q6H PRN IVP Nausea & Vomiting 01/24/18 15:30 02/23/18 15:29 01/29/18 09:48 Pantoprazole (Protonix) 40 mg EVERY 12 HOURS ORAL 02/01/18 21:00 03/03/18 20:59 Phenol/Menthol (Chloraseptic) 1 spray Q4H PRN ORAL THROAT PAIN 01/29/18 18:00 02/28/18 17:59 01/30/18 12:11 Polyethylene Glycol (Miralax) 17 gm HSPRN PRN ORAL Constipation 01/24/18 21:00 02/23/18 20:59 Sodium Chloride 1,000 ml @ 0 mls/hr Q0M IV 02/01/18 14:15 03/03/18 14:14 Allergies: Coded Allergies: No Known Allergies (Unverified , 01/24/18) ROS Limited/Unobtainable: No Constitutional: Reports: no symptoms HEENT: Reports: no symptoms Cardiovascular: Reports: no symptoms Respiratory: Reports: no symptoms Gastrointestinal/Abdominal: Reports: abdomen distended, abdominal pain Genitourinary: Reports: no symptoms Neurologic/Psychiatric: Reports: no symptoms Subjective 47 YO F admitted with abdominal pain; now perforated duodenal ulcer. S/P exploratory laparotomy 01/24/18. Cover for Int Juan-Dr Murdock Objective Last Vital Signs Date Time Temp Pulse Resp B/P (MAP) Pulse Ox O2 Delivery O2 Flow Rate FiO2 02/01/18 16:00 97.8 74 19 119/65 97 97.8 02/01/18 04:00 Room Air 01/28/18 00:00 1.0 Laboratory Tests Test 02/01/18 06:10 White Blood Count 5.7 K/UL (4.8-10.8) Red Blood Count 3.13 M/UL (4.20-5.40) L Hemoglobin 10.5 G/DL (12.0-16.0) L Hematocrit 30.3 % (37.0-47.0) L Mean Corpuscular Volume 97 FL (80-99) Mean Corpuscular Hemoglobin 33.7 PG (27.0-31.0) H Mean Corpuscular Hemoglobin Concent 34.8 G/DL (32.0-36.0) Red Cell Distribution Width 11.6 % (11.6-14.8) Platelet Count 373 K/UL (150-450) Mean Platelet Volume 5.2 FL (6.5-10.1) L Neutrophils (%) (Auto) 38.6 % (45.0-75.0) L Lymphocytes (%) (Auto) 43.5 % (20.0-45.0) Monocytes (%) (Auto) 10.6 % (1.0-10.0) H Eosinophils (%) (Auto) 6.2 % (0.0-3.0) H Basophils (%) (Auto) 1.1 % (0.0-2.0) Sodium Level 140 MMOL/L (136-145) Potassium Level 3.3 MMOL/L (3.5-5.1) L Chloride Level 104 MMOL/L (98-107) Carbon Dioxide Level 29 MMOL/L (21-32) Anion Gap 8 mmol/L (5-15) Blood Urea Nitrogen 1 mg/dL (7-18) L Creatinine 0.6 MG/DL (0.55-1.30) Estimat Glomerular Filtration Rate > 60 mL/min (>60) Glucose Level 95 MG/DL (74-106) Calcium Level 8.5 MG/DL (8.5-10.1) Intake and Output 01/31/18 02/01/18 19:00 07:00 Intake Total 980 ml 1500 ml Output Total 5 ml Balance 980 ml 1495 ml Intake Oral 380 ml 300 ml IV Total 600 ml 1200 ml Drainage Total 5 ml # Voids 4 2 Objective General Appearance: WD/WN, alert, mild distress EENT: PERRL/EOMI, normal ENT inspection Neck: non-tender, normal alignment, supple, normal inspection Cardiovascular: normal peripheral pulses, normal rate, regular rhythm, no gallop/murmur, no JVD Respiratory/Chest: chest wall non-tender, lungs clear, normal breath sounds, no respiratory distress, no accessory muscle use Abdomen: NGT in place; decreased bowel sounds, distended, guarding, tender Extremities: normal range of motion, non-tender 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 Perforated duodenal ulcer s/p Exploratory laparotomy 01/24/18-see surgery note. 2. Abdominal pain Plan: Clear liquid diet D/C NGT tube pain medication Protonix IV Abx: Rocephin and Flagyl. SCD Full code. Charles Jorgensen MD February 01, 2018 19:36
[2018-02-01 20:00] VITALS: BP 131/55
[2018-02-01] MEDS: HYDROcodone/Acetamin 10/325 tab ORAL PRN (20:31)
[2018-02-01] MEDS ORDERED: NovoLOG Insulin Flexpen SUBQ SCH (21:00)
[2018-02-02] VITALS: BP 123/71
[2018-02-02] MEDS: HYDROcodone/Acetamin 10/325 tab ORAL PRN ×5 (00:49→21:41)
--- NOTE | 2018-02-02 01:15 | Progress Note ---
DATE: 02/01/2018 SUBJECTIVE: The patient is more cooperative today with the meds, agreed for the morphine to be tapered down and change to oral medication as she has been close to the discharge. She still dissented about lowering morphine. Continues to be irritable. MENTAL STATUS EXAMINATION: Alert and oriented times self, place, and situation. Mood is irritable. Affect is constricted. Congruent with mood. Thought process, concrete. Thought content, no suicidal or homicidal ideation. ASSESSMENT: 1. Opiate dependence. 2. The patient is not in pain, however, has medication seeking behavior. 3. Anxiety disorder, which is the underlying cause for depression. PLAN: 1. We will lower the dosage and change the IV morphine to p.o. 2. We will switch to longer-acting pain medication. Bob Viveros M.D. DR: SHANNON JOB#: [id number] CC:
--- NOTE | 2018-02-02 04:00 | Progress Note ---
DATE: 01/31/2018 SUBJECTIVE: The patient was seen yesterday, this is a late entry. The patient and has medication seeking behavior changing medication to a longer-acting . She has poor insight and judgment. The patient is hostile. MENTAL STATUS EXAMINATION: The patient is alert and oriented times self, place, and situation. At times, she appears intoxicated. Mood is irritable. Affect is constricted. Congruent with mood. Thought process is concrete. Thought content, no suicidal or homicidal ideation. ASSESSMENT: Opioid dependence. PLAN: 1. Lowering the IV dosage of morphine. 2. The patient is reluctant to take any other medication. 3. Provide the patient with supportive therapy and reality orientation. Bob Viveros M.D. DR: ALICE JOB#: [id number] CC:
[2018-02-02 07:54] LABS: BASOPHILS % (AUTO) 2.3 % (0.0-2.0); EOSINOPHILS % (AUTO) 5.4 % (0.0-3.0); HEMATOCRIT 36.3 % (37.0-47.0); HEMOGLOBIN 12.6 G/DL (12.0-16.0); LYMPHOCYTES % (AUTO) 50.1 % (20.0-45.0); MEAN CORPUSCULAR VOLUME 98 FL (80-99); MONOCYTES % (AUTO) 9.1 % (1.0-10.0); NEUTROPHILS % (AUTO) 33.2 % (45.0-75.0); PLATELET COUNT 386 K/UL (150-450); RED BLOOD COUNT 3.72 M/UL (4.20-5.40); WHITE BLOOD COUNT 5.3 K/UL (4.8-10.8)
[2018-02-02 08:04] LABS: ANION GAP 10 mmol/L (5-15); BLOOD UREA NITROGEN 2 mg/dL (7-18); CALCIUM 8.8 MG/DL (8.5-10.1); CARBON DIOXIDE 25 MMOL/L (21-32); CHLORIDE 106 MMOL/L (98-107); CREATININE 0.7 MG/DL (0.55-1.30); POTASSIUM 3.3 MMOL/L (3.5-5.1); SODIUM 140 MMOL/L (136-145)
[2018-02-02 08:15] VITALS: BP 133/63
[2018-02-02] MEDS: Enoxaparin 40mg Inj SUBQ SCH (09:07)
[2018-02-02 12:00] VITALS: BP 136/72
--- NOTE | 2018-02-02 14:13 | General Surgery Progress Note ---
General Surgery-Progress Note Subjective Procedure Performed exploratory laparotomy , Gastrorrhaphy with sandra patch Symptoms: improved, BM Objective Last 24 Hour Vital Signs Date Time Temp Pulse Resp B/P (MAP) Pulse Ox O2 Delivery O2 Flow Rate FiO2 02/02/18 12:00 98.2 17 136/72 56 98.2 02/02/18 11:39 97.7 02/02/18 10:40 97.7 02/02/18 08:15 98.2 17 133/63 99 98.2 02/02/18 00:00 97.7 55 18 123/71 97 97.7 02/01/18 20:00 97.7 55 18 131/55 99 97.7 02/01/18 16:00 97.8 74 19 119/65 97 97.8 02/01/18 14:54 97.6 02/01/18 14:24 97.6 I&O Intake and Output 02/01/18 02/02/18 19:00 07:00 Intake Total 200 ml 300 ml Balance 200 ml 300 ml Intake Oral 200 ml 300 ml # Voids 2 3 # Bowel Movements 1 Wound: clean Drains: none Respiratory: clear Abdomen: soft, flat, non-tender Laboratory Tests Test 02/02/18 06:40 White Blood Count 5.3 K/UL (4.8-10.8) Red Blood Count 3.72 M/UL (4.20-5.40) L Hemoglobin 12.6 G/DL (12.0-16.0) Hematocrit 36.3 % (37.0-47.0) L Mean Corpuscular Volume 98 FL (80-99) Mean Corpuscular Hemoglobin 33.9 PG (27.0-31.0) H Mean Corpuscular Hemoglobin Concent 34.7 G/DL (32.0-36.0) Red Cell Distribution Width 12.0 % (11.6-14.8) Platelet Count 386 K/UL (150-450) Mean Platelet Volume 5.0 FL (6.5-10.1) L Neutrophils (%) (Auto) 33.2 % (45.0-75.0) L Lymphocytes (%) (Auto) 50.1 % (20.0-45.0) H Monocytes (%) (Auto) 9.1 % (1.0-10.0) Eosinophils (%) (Auto) 5.4 % (0.0-3.0) H Basophils (%) (Auto) 2.3 % (0.0-2.0) H Sodium Level 140 MMOL/L (136-145) Potassium Level 3.3 MMOL/L (3.5-5.1) L Chloride Level 106 MMOL/L (98-107) Carbon Dioxide Level 25 MMOL/L (21-32) Anion Gap 10 mmol/L (5-15) Blood Urea Nitrogen 2 mg/dL (7-18) L Creatinine 0.7 MG/DL (0.55-1.30) Estimat Glomerular Filtration Rate > 60 mL/min (>60) Glucose Level 87 MG/DL (74-106) Calcium Level 8.8 MG/DL (8.5-10.1) Assessment Post-op Diagnosis perforated duodenal ulcer Plan Additional Comments can be discharged in AM Mayank Owusu MD February 02, 2018 14:13
[2018-02-02 16:00] VITALS: BP 134/70
--- NOTE | 2018-02-02 16:07 | Internal Med Progress Note ---
Subjective Date of Service: February 02, 2018 Physician Name Charles Jorgensen Attending Physician James Murdock MD Current Medications Medications (Trade) Dose Ordered Sig/Evelyn Route PRN Reason Start Time Stop Time Status Last Admin Dose Admin Acetaminophen (Tylenol) 650 mg Q4H PRN ORAL fever 01/24/18 15:30 02/23/18 15:29 Acetaminophen/ Hydrocodone Bitart ([place] 10/325) 1 tab Q4H PRN ORAL For Pain 02/01/18 19:15 02/08/18 19:14 02/02/18 10:40 Al Hydroxide/Mg Hydroxide (Mylanta II) 30 ml Q6H PRN ORAL dyspepsia 01/24/18 15:30 02/23/18 15:29 Dextrose (Dextrose 50%) 25 ml STAT PRN IV Hypoglycemia 02/01/18 18:45 03/03/18 18:44 Dextrose (Dextrose 50%) 50 ml STAT PRN IV Hypoglycemia 02/01/18 18:45 03/03/18 18:44 Dicyclomine HCl (Bentyl) 10 mg TIDPRN PRN ORAL Abdominal cramps 01/29/18 11:15 02/28/18 11:14 01/30/18 12:11 Diphenhydramine HCl (Benadryl) 25 mg Q6H PRN ORAL Itching/Pruritis 01/24/18 15:30 02/23/18 15:29 02/01/18 10:35 Enoxaparin Sodium (Lovenox) 40 mg DAILY SUBQ 01/25/18 09:00 02/24/18 08:59 02/02/18 09:07 Metoclopramide HCl (Reglan) 10 mg THREE TIMES A DAY ORAL 02/01/18 18:00 03/03/18 17:59 02/02/18 12:53 Nitroglycerin (Ntg) 0.4 mg Q5M X 3 DOSES PRN SL Prn Chest Pain 01/24/18 15:30 02/23/18 15:29 Ondansetron HCl (Zofran) 4 mg Q6H PRN IVP Nausea & Vomiting 01/24/18 15:30 02/23/18 15:29 01/29/18 09:48 Pantoprazole (Protonix) 40 mg EVERY 12 HOURS ORAL 02/01/18 21:00 03/03/18 20:59 02/02/18 09:06 Phenol/Menthol (Chloraseptic) 1 spray Q4H PRN ORAL THROAT PAIN 01/29/18 18:00 02/28/18 17:59 01/30/18 12:11 Polyethylene Glycol (Miralax) 17 gm HSPRN PRN ORAL Constipation 01/24/18 21:00 02/23/18 20:59 Sodium Chloride 1,000 ml @ 0 mls/hr Q0M IV 02/01/18 14:15 03/03/18 14:14 Allergies: Coded Allergies: No Known Allergies (Unverified , 01/24/18) ROS Limited/Unobtainable: No Constitutional: Reports: no symptoms HEENT: Reports: no symptoms Cardiovascular: Reports: no symptoms Respiratory: Reports: no symptoms Gastrointestinal/Abdominal: Reports: abdomen distended, abdominal pain Genitourinary: Reports: no symptoms Neurologic/Psychiatric: Reports: no symptoms Subjective 47 YO F admitted with abdominal pain; now perforated duodenal ulcer. S/P exploratory laparotomy 01/24/18. Cover for Int Juan-Dr Murdock Objective Last Vital Signs Date Time Temp Pulse Resp B/P (MAP) Pulse Ox O2 Delivery O2 Flow Rate FiO2 02/02/18 12:00 98.2 17 136/72 56 98.2 02/02/18 00:00 55 02/01/18 04:00 Room Air 01/28/18 00:00 1.0 Laboratory Tests Test 02/02/18 06:40 White Blood Count 5.3 K/UL (4.8-10.8) Red Blood Count 3.72 M/UL (4.20-5.40) L Hemoglobin 12.6 G/DL (12.0-16.0) Hematocrit 36.3 % (37.0-47.0) L Mean Corpuscular Volume 98 FL (80-99) Mean Corpuscular Hemoglobin 33.9 PG (27.0-31.0) H Mean Corpuscular Hemoglobin Concent 34.7 G/DL (32.0-36.0) Red Cell Distribution Width 12.0 % (11.6-14.8) Platelet Count 386 K/UL (150-450) Mean Platelet Volume 5.0 FL (6.5-10.1) L Neutrophils (%) (Auto) 33.2 % (45.0-75.0) L Lymphocytes (%) (Auto) 50.1 % (20.0-45.0) H Monocytes (%) (Auto) 9.1 % (1.0-10.0) Eosinophils (%) (Auto) 5.4 % (0.0-3.0) H Basophils (%) (Auto) 2.3 % (0.0-2.0) H Sodium Level 140 MMOL/L (136-145) Potassium Level 3.3 MMOL/L (3.5-5.1) L Chloride Level 106 MMOL/L (98-107) Carbon Dioxide Level 25 MMOL/L (21-32) Anion Gap 10 mmol/L (5-15) Blood Urea Nitrogen 2 mg/dL (7-18) L Creatinine 0.7 MG/DL (0.55-1.30) Estimat Glomerular Filtration Rate > 60 mL/min (>60) Glucose Level 87 MG/DL (74-106) Calcium Level 8.8 MG/DL (8.5-10.1) Intake and Output 02/01/18 02/02/18 19:00 07:00 Intake Total 200 ml 300 ml Balance 200 ml 300 ml Intake Oral 200 ml 300 ml # Voids 2 3 # Bowel Movements 1 Objective General Appearance: WD/WN, alert, mild distress EENT: PERRL/EOMI, normal ENT inspection Neck: non-tender, normal alignment, supple, normal inspection Cardiovascular: normal peripheral pulses, normal rate, regular rhythm, no gallop/murmur, no JVD Respiratory/Chest: chest wall non-tender, lungs clear, normal breath sounds, no respiratory distress, no accessory muscle use Abdomen: NGT in place; decreased bowel sounds, distended, guarding, tender Extremities: normal range of motion, non-tender 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 Perforated duodenal ulcer s/p Exploratory laparotomy 01/24/18-see surgery note. 2. Abdominal pain Plan: Clear liquid diet D/C NGT tube pain medication Protonix IV Abx: Rocephin and Flagyl. SCD Full code. Discharge planning Charles Jorgensen MD February 02, 2018 16:07
[2018-02-02 20:00] VITALS: BP 109/73
[2018-02-03] VITALS: BP 111/71
[2018-02-03] MEDS: HYDROcodone/Acetamin 10/325 tab ORAL PRN ×2 (03:49→08:56)
[2018-02-03 04:00] VITALS: BP 136/79
[2018-02-03 07:22] LABS: BASOPHILS % (AUTO) 1.5 % (0.0-2.0); EOSINOPHILS % (AUTO) 4.1 % (0.0-3.0); HEMATOCRIT 32.7 % (37.0-47.0); HEMOGLOBIN 11.3 G/DL (12.0-16.0); LYMPHOCYTES % (AUTO) 43.4 % (20.0-45.0); MEAN CORPUSCULAR VOLUME 98 FL (80-99); MONOCYTES % (AUTO) 9.9 % (1.0-10.0); NEUTROPHILS % (AUTO) 41.3 % (45.0-75.0); PLATELET COUNT 423 K/UL (150-450); RED BLOOD COUNT 3.34 M/UL (4.20-5.40); RED CELL DISTRIBUTION WIDTH 12.1 % (11.6-14.8); WHITE BLOOD COUNT 6.6 K/UL (4.8-10.8)
[2018-02-03 07:38] LABS: ANION GAP 8 mmol/L (5-15); BLOOD UREA NITROGEN 7 mg/dL (7-18); CALCIUM 8.5 MG/DL (8.5-10.1); CARBON DIOXIDE 24 MMOL/L (21-32); CHLORIDE 109 MMOL/L (98-107); CREATININE 0.8 MG/DL (0.55-1.30); POTASSIUM 3.9 MMOL/L (3.5-5.1); SODIUM 141 MMOL/L (136-145)
[2018-02-03 08:42] VITALS: BP 132/79
[2018-02-03] MEDS: Enoxaparin 40mg Inj SUBQ SCH (09:03)
[2018-02-03] MEDS ORDERED: ACETAMINOPHEN325 M1 ORAL (11:35)
[2018-02-03] MEDS ORDERED: MYLANTA30 M1 PO (11:38)
[2018-02-03] MEDS ORDERED: DIPHENHYDRAMINE25 M1 ORAL (11:40)
[2018-02-03] MEDS ORDERED: PANTOPRAZOLE SO40 MG ORAL (11:41)
[2018-02-03] MEDS ORDERED: NORCO 5-325 TA1 EACH ORAL (11:42)
[2018-02-03] MEDS ORDERED: MIRALAX17 G2 ORAL (11:42)
[2018-02-03 12:00] VITALS: BP 128/79
--- NOTE | 2018-02-03 12:50 | Infectious Diseases Prog Note ---
Assessment/Plan Assessment/Plan ASSESSMENT: The patient is a 47-year-old female SP perforated duodenal ulcer status post postop (01/24/2018) CT of the abdomen: positive intraperitoneal air Bcx neg Leukocytosis, SP Hx of myomectomy PLAN: -Continue to monitor off abx 01/30 SP Rocephin and Flagyl d# 6 01/24 SP Zosyn x 1 Monitor CBC. Monitor BMP. Surg following wound care per hosp protocol aspiration precautions Subjective Allergies: Coded Allergies: No Known Allergies (Unverified , 01/24/18) Subjective afebrile no leukocytosis off abx now regular diet Objective Vital Signs Last 24 Hour Vital Signs Date Time Temp Pulse Resp B/P (MAP) Pulse Ox O2 Delivery O2 Flow Rate FiO2 02/03/18 12:00 98.2 53 18 128/79 99 98.2 02/03/18 09:55 97.3 02/03/18 08:56 97.3 02/03/18 08:42 97.3 61 18 132/79 97 97.3 02/03/18 04:00 97.8 100 19 136/79 98 97.8 02/03/18 03:49 98.2 02/03/18 00:00 98.2 66 19 111/71 99 98.2 02/02/18 21:41 98.4 02/02/18 20:00 98.4 63 19 109/73 98 98.4 02/02/18 17:06 98.2 02/02/18 16:00 98.4 62 18 134/70 98 98.4 Height (Feet): 5 Height (Inches): 7.00 Weight (Pounds): 190 Objective General Appearance: WD/WN, alert, mild distress EENT: PERRL/EOMI, normal ENT inspection Neck: non-tender, normal alignment, supple, normal inspection Cardiovascular: normal peripheral pulses, normal rate, regular rhythm, no gallop/murmur, no JVD Respiratory/Chest: chest wall non-tender, lungs clear, normal breath sounds, no respiratory distress, no accessory muscle use Abdomen: surgical incision no signs of inefction, LATHA drain- minimal serosanguineous fluid Extremities: normal range of motion, non-tender 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, no motor/sensory deficits Skin: normal pigmentation Laboratory Tests Test 02/03/18 06:00 White Blood Count 6.6 K/UL (4.8-10.8) Red Blood Count 3.34 M/UL (4.20-5.40) L Hemoglobin 11.3 G/DL (12.0-16.0) L Hematocrit 32.7 % (37.0-47.0) L Mean Corpuscular Volume 98 FL (80-99) Mean Corpuscular Hemoglobin 33.7 PG (27.0-31.0) H Mean Corpuscular Hemoglobin Concent 34.4 G/DL (32.0-36.0) Red Cell Distribution Width 12.1 % (11.6-14.8) Platelet Count 423 K/UL (150-450) Mean Platelet Volume 5.3 FL (6.5-10.1) L Neutrophils (%) (Auto) 41.3 % (45.0-75.0) L Lymphocytes (%) (Auto) 43.4 % (20.0-45.0) Monocytes (%) (Auto) 9.9 % (1.0-10.0) Eosinophils (%) (Auto) 4.1 % (0.0-3.0) H Basophils (%) (Auto) 1.5 % (0.0-2.0) Sodium Level 141 MMOL/L (136-145) Potassium Level 3.9 MMOL/L (3.5-5.1) Chloride Level 109 MMOL/L (98-107) H Carbon Dioxide Level 24 MMOL/L (21-32) Anion Gap 8 mmol/L (5-15) Blood Urea Nitrogen 7 mg/dL (7-18) Creatinine 0.8 MG/DL (0.55-1.30) Estimat Glomerular Filtration Rate > 60 mL/min (>60) Glucose Level 92 MG/DL (74-106) Calcium Level 8.5 MG/DL (8.5-10.1) Current Medications Medications (Trade) Dose Ordered Sig/Evelyn Route PRN Reason Start Time Stop Time Status Last Admin Dose Admin Acetaminophen (Tylenol) 650 mg Q4H PRN ORAL fever 01/24/18 15:30 02/23/18 15:29 Acetaminophen/ Hydrocodone Bitart ([place] 10/325) 1 tab Q4H PRN ORAL For Pain 02/01/18 19:15 02/08/18 19:14 02/03/18 08:56 Al Hydroxide/Mg Hydroxide (Mylanta II) 30 ml Q6H PRN ORAL dyspepsia 01/24/18 15:30 02/23/18 15:29 Dextrose (Dextrose 50%) 25 ml STAT PRN IV Hypoglycemia 02/01/18 18:45 03/03/18 18:44 Dextrose (Dextrose 50%) 50 ml STAT PRN IV Hypoglycemia 02/01/18 18:45 03/03/18 18:44 Dicyclomine HCl (Bentyl) 10 mg TIDPRN PRN ORAL Abdominal cramps 01/29/18 11:15 02/28/18 11:14 01/30/18 12:11 Diphenhydramine HCl (Benadryl) 25 mg Q6H PRN ORAL Itching/Pruritis 01/24/18 15:30 02/23/18 15:29 02/01/18 10:35 Enoxaparin Sodium (Lovenox) 40 mg DAILY SUBQ 01/25/18 09:00 02/24/18 08:59 02/03/18 09:03 Metoclopramide HCl (Reglan) 10 mg THREE TIMES A DAY ORAL 02/01/18 18:00 03/03/18 17:59 02/03/18 08:55 Nitroglycerin (Ntg) 0.4 mg Q5M X 3 DOSES PRN SL Prn Chest Pain 01/24/18 15:30 02/23/18 15:29 Ondansetron HCl (Zofran) 4 mg Q6H PRN IVP Nausea & Vomiting 01/24/18 15:30 02/23/18 15:29 01/29/18 09:48 Pantoprazole (Protonix) 40 mg EVERY 12 HOURS ORAL 02/01/18 21:00 03/03/18 20:59 02/03/18 08:55 Phenol/Menthol (Chloraseptic) 1 spray Q4H PRN ORAL THROAT PAIN 01/29/18 18:00 02/28/18 17:59 01/30/18 12:11 Polyethylene Glycol (Miralax) 17 gm HSPRN PRN ORAL Constipation 01/24/18 21:00 02/23/18 20:59 Sodium Chloride 1,000 ml @ 0 mls/hr Q0M IV 02/01/18 14:15 03/03/18 14:14 Geraldine Hampton M.D. February 03, 2018 12:50
--- NOTE | 2018-02-03 12:50 | General Surgery Progress Note ---
General Surgery-Progress Note Subjective Procedure Performed exploratory laparotomy , Gastrorrhaphy with sandra patch Symptoms: improved, BM Objective Last 24 Hour Vital Signs Date Time Temp Pulse Resp B/P (MAP) Pulse Ox O2 Delivery O2 Flow Rate FiO2 02/03/18 12:00 98.2 53 18 128/79 99 98.2 02/03/18 09:55 97.3 02/03/18 08:56 97.3 02/03/18 08:42 97.3 61 18 132/79 97 97.3 02/03/18 04:00 97.8 100 19 136/79 98 97.8 02/03/18 03:49 98.2 02/03/18 00:00 98.2 66 19 111/71 99 98.2 02/02/18 21:41 98.4 02/02/18 20:00 98.4 63 19 109/73 98 98.4 02/02/18 17:06 98.2 02/02/18 16:00 98.4 62 18 134/70 98 98.4 I&O Intake and Output 02/02/18 02/03/18 19:00 07:00 Intake Total 800 ml Balance 800 ml Intake Oral 800 ml # Voids 5 Drains: none Abdomen: soft, flat, present bowel sounds Extremities: no tenderness Laboratory Tests Test 02/03/18 06:00 White Blood Count 6.6 K/UL (4.8-10.8) Red Blood Count 3.34 M/UL (4.20-5.40) L Hemoglobin 11.3 G/DL (12.0-16.0) L Hematocrit 32.7 % (37.0-47.0) L Mean Corpuscular Volume 98 FL (80-99) Mean Corpuscular Hemoglobin 33.7 PG (27.0-31.0) H Mean Corpuscular Hemoglobin Concent 34.4 G/DL (32.0-36.0) Red Cell Distribution Width 12.1 % (11.6-14.8) Platelet Count 423 K/UL (150-450) Mean Platelet Volume 5.3 FL (6.5-10.1) L Neutrophils (%) (Auto) 41.3 % (45.0-75.0) L Lymphocytes (%) (Auto) 43.4 % (20.0-45.0) Monocytes (%) (Auto) 9.9 % (1.0-10.0) Eosinophils (%) (Auto) 4.1 % (0.0-3.0) H Basophils (%) (Auto) 1.5 % (0.0-2.0) Sodium Level 141 MMOL/L (136-145) Potassium Level 3.9 MMOL/L (3.5-5.1) Chloride Level 109 MMOL/L (98-107) H Carbon Dioxide Level 24 MMOL/L (21-32) Anion Gap 8 mmol/L (5-15) Blood Urea Nitrogen 7 mg/dL (7-18) Creatinine 0.8 MG/DL (0.55-1.30) Estimat Glomerular Filtration Rate > 60 mL/min (>60) Glucose Level 92 MG/DL (74-106) Calcium Level 8.5 MG/DL (8.5-10.1) Assessment Post-op Diagnosis perforated duodenal ulcer Plan Additional Comments discharge to home Mayank Owusu MD February 03, 2018 12:50
--- NOTE | 2018-02-03 16:27 | Internal Med Progress Note ---
Subjective Date of Service: February 03, 2018 Physician Name Charles Jorgensen Attending Physician James Murdock MD Allergies: Coded Allergies: No Known Allergies (Unverified , 01/24/18) ROS Limited/Unobtainable: No Constitutional: Reports: no symptoms HEENT: Reports: no symptoms Cardiovascular: Reports: no symptoms Respiratory: Reports: no symptoms Gastrointestinal/Abdominal: Reports: no symptoms Genitourinary: Reports: no symptoms Neurologic/Psychiatric: Reports: no symptoms Subjective 47 YO F admitted with abdominal pain; now perforated duodenal ulcer. S/P exploratory laparotomy 01/24/18. Cover for Int Med-Dr Murdock. Await discharge home today Objective Last Vital Signs Date Time Temp Pulse Resp B/P (MAP) Pulse Ox O2 Delivery O2 Flow Rate FiO2 02/03/18 12:00 98.2 53 18 128/79 99 98.2 02/01/18 04:00 Room Air 01/28/18 00:00 1.0 Laboratory Tests Test 02/03/18 06:00 White Blood Count 6.6 K/UL (4.8-10.8) Red Blood Count 3.34 M/UL (4.20-5.40) L Hemoglobin 11.3 G/DL (12.0-16.0) L Hematocrit 32.7 % (37.0-47.0) L Mean Corpuscular Volume 98 FL (80-99) Mean Corpuscular Hemoglobin 33.7 PG (27.0-31.0) H Mean Corpuscular Hemoglobin Concent 34.4 G/DL (32.0-36.0) Red Cell Distribution Width 12.1 % (11.6-14.8) Platelet Count 423 K/UL (150-450) Mean Platelet Volume 5.3 FL (6.5-10.1) L Neutrophils (%) (Auto) 41.3 % (45.0-75.0) L Lymphocytes (%) (Auto) 43.4 % (20.0-45.0) Monocytes (%) (Auto) 9.9 % (1.0-10.0) Eosinophils (%) (Auto) 4.1 % (0.0-3.0) H Basophils (%) (Auto) 1.5 % (0.0-2.0) Sodium Level 141 MMOL/L (136-145) Potassium Level 3.9 MMOL/L (3.5-5.1) Chloride Level 109 MMOL/L (98-107) H Carbon Dioxide Level 24 MMOL/L (21-32) Anion Gap 8 mmol/L (5-15) Blood Urea Nitrogen 7 mg/dL (7-18) Creatinine 0.8 MG/DL (0.55-1.30) Estimat Glomerular Filtration Rate > 60 mL/min (>60) Glucose Level 92 MG/DL (74-106) Calcium Level 8.5 MG/DL (8.5-10.1) Intake and Output 02/02/18 02/03/18 19:00 07:00 Intake Total 800 ml Balance 800 ml Intake Oral 800 ml # Voids 5 Objective General Appearance: WD/WN, alert, mild distress EENT: PERRL/EOMI, normal ENT inspection Neck: non-tender, normal alignment, supple, normal inspection Cardiovascular: normal peripheral pulses, normal rate, regular rhythm, no gallop/murmur, no JVD Respiratory/Chest: chest wall non-tender, lungs clear, normal breath sounds, no respiratory distress, no accessory muscle use Abdomen: NGT in place; decreased bowel sounds, distended, guarding, tender Extremities: normal range of motion, non-tender 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 Perforated duodenal ulcer s/p Exploratory laparotomy 01/24/18-see surgery note. 2. Abdominal pain Plan: tolerating soft diet D/C NGT tube pain medication Protonix IV Abx: Rocephin and Flagyl. SCD Full code. Discharge home with home health today Charles Jorgensen MD February 03, 2018 16:27
--- NOTE | 2018-02-04 08:14 | Discharge Summary ---
Discharge Summary Discharge Summary _ DATE OF ADMISSION: 01/24/2018 DATE OF DISCHARGE: 02/03/2018 REASON FOR ADMISSION: 47 years old female with past medical history significant for myomectomy and left foot bunionectomy, presented to the emergency department complaining of abdominal pain. Pain was located mainly in the epigastric area , not radiating. Pain was associated with nausea and vomiting, but no hematemesis. She denied similar symptoms in the past. She denied any history of peptic ulcer disease or gastritis. She denied consumption of aspirin, Motrin or steroids. Patient admitted to be under a lot of stress recently. Upon evaluation in emergency department, vital signs were stable. Laboratory workup revealed leukocytosis and hypokalemia. Renal parameters, liver enzymes, and other electrolytes were stable. Hemoglobin and hematocrit were stable. Troponin was negative. Chest x-ray revealed no acute cardiopulmonary pathology. Urinalysis revealed no evidence of urinary tract infection. Urine test was negative. CT of the abdomen and pelvis revealed free intraperitoneal air, consistent with perforated hollow viscus. Also noted lumbar scoliosis and secondary degenerative spondylosis. General surgeon was emergently contacted. Patient required emergency surgery. Patient was taken to operating room and subsequently was admitted to the hospital with diagnosis of perforated abdominal viscus, hypokalemia, dehydration leukocytosis, abdominal pain, lumbar scoliosis with degenerative spondylosis. CONSULTANTS: pulmonary Dr. Lyons ID specialist Dr. Walker GI specialist Dr. Byrd surgery Dr. Owusu psychiatrist dr Love [facility] COURSE: Patient undergone emergently exploratory laparotomy, with gastrorrhaphy with Grover patch . Surgery revealed perforated duodenal ulcer. Postoperatively patient was admitted to medical surgical floor. Patient was on intravenous hydration. Patient was kept NPO unt6il bowel function returned. NG tube to low intermittent suction. Patient had a Rinku-Dwyer drain. NG tube and [id number] drain outputs were closely monitored. Wound care provided. Pain management initially provided with [employer]. Patient was on empiric antibiotics as per ID management. DVT prophylaxis with SCD provided. Incentive spirometer was at the bedside. Patient was taught and encouraged to use every hour while in the bed. Potassium was initially replaced. Patient was on PPI.Bowel regimen instituted. Renal parameters and electrolytes were closely monitored , electrolytes corrected as needed. Nephrotoxins were avoided. Patient was initially reluctant to ambulate, complaining of pain and requesting pain medication constantly. Pain management was modified Psychiatrist seen and evaluated the patient, and diagnosed patient with opioid dependency and anxiety disorder. Psychiatric medication regimen was optimized. Physical therapy evaluation was requested. Patient initially ambulated with a front-wheeled walker. Subsequently, NG tube drainage became minimal, and NG tube was discontinued on 01/30. Bowel sounds returned o 01/31, patient was passing flatus. Patient started on clear liquid diet and was advanced as tolerated. Antiemetics were on board as needed . Patient was slowly recovering. Patient was able to ambulate with the physical therapist. Patient had a bowel movement. Blood culture were negative, leukocytosis resolved. Per infectious disease specialist , antibiotics were discontinued and recommended to observe patient off antibiotics. Patient was stable for discharge home with home health services for wound care and PT FINAL DIAGNOSES: Perforated duodenal ulcer Status post exploratory laparotomy, gastrorrhaphy with Grover patch Dehydration Hypokalemia Lumbar scoliosis with degenerative spondylolisthesis leukocytosis, resolved Opioid dependency Anxiety disorder DISCHARGE MEDICATIONS: See Medication Reconciliation list. DISCHARGE INSTRUCTIONS: Patient was discharged home with home health services. Follow-up with the primary care provider ; follow-up with a surgeon as advised by surgeon. I have been assigned to dictate discharge summary for this account. I was not involved in the patient's management. Teresita Lancaster NP February 04, 2018 08:14
--- NOTE | 2018-02-05 15:55 | General Progress Note ---
Assessment/Plan Status: progressing Assessment/Plan anxiety pain med dependence rec change it to long acting opioids like methadone -ssris -d/w Dr. roberts Subjective Date patient seen: February 03, 2018 Neurologic/Psychiatric: Reports: anxiety, depressed Allergies: Coded Allergies: No Known Allergies (Unverified , 01/24/18) Subjective the pt cont to have morphine around the clock the pt is pleasant as long as not talking about her drug dependence. Objective Height (Feet): 5 Height (Inches): 7.00 Weight (Pounds): 190 Bob Viveros M.D. February 05, 2018 15:55
== END 2018-02-03 14:00 | disposition home health service (06) | DRG 330 ==
LOC: EDBD 10:43 → EMR 12:52 → 4W 14:03 → EDBEDREQ 14:31
PROC: 0DU907Z Supplement Duodenum with Autologous Tissue Substitute, Open Approach (ICD-10-PCS; principal; 2018-01-24 16:30)
DX: K26.1 Acute duodenal ulcer with perforation (principal); F11.20 Opioid dependence, uncomplicated; E87.6 Hypokalemia; E86.0 Dehydration; M41.86 Other forms of scoliosis, lumbar region; M47.9 Spondylosis, unspecified; F41.9 Anxiety disorder, unspecified
CPT/HCPCS: 36415; 71045; 74177; 80048; 80053; 81003; 81025; 82150; 82550; 82553; 83690; 84484; 85007; 85025; 85730; 86677; 87040; 93005; 94003; 94150; 99291; J2250; J2405; J2710; J2765; J8499

== ENCOUNTER 2018-03-24 12:33 | Emergency (ER) | payer MEDICARE, MEDICAID ==
[~2018-03-24] VITALS: Ht 175.3 cm; Wt 83.0 kg
[~2018-03-24 12:33] MED LIST: ACETAMINOPHEN325 M1 ORAL; DIPHENHYDRAMINE25 M1 ORAL; MIRALAX17 G2 ORAL; MYLANTA30 M1 PO; NKM; NORCO 5-325 TA1 EACH ORAL; PANTOPRAZOLE SO40 MG ORAL
[2018-03-24] MEDS ORDERED: Sodium Chloride 500ML 500 ML IV ONE (13:12)
--- NOTE | 2018-03-24 13:14 | Emergency Room Report ---
History of Present Illness General Chief Complaint: Abdominal Pain Source: Patient (Israel Roa MD) Present Illness HPI 47-year-old female presents ED complaining of abdominal pain. Started approximately 2 days ago. Sharp, left-sided, 10 out of 10, nonradiating. Hurts even with cough and sneezing. Patient is status post exploratory laparoscopy secondary to perforated viscus. Had surgery here in January. Patient states she's had intermittent pains here and there but worse over the last 2 days. States she is passing gas and having bowel movements. Denies nausea or vomiting. No other aggravating relieving factors. Denies any other associated symptoms (Israel Roa MD) Allergies: Coded Allergies: No Known Allergies (Unverified , 01/24/18) Patient History Past Medical History: none Past Surgical History: other - exlap Pertinent Family History: none Social History: Denies: smoking, alcohol use, drug use Now: No Immunizations: UTD Reviewed Nursing Documentation: PMH: Agreed; PSxH: Agreed (Israel Roa MD) Nursing Documentation-PMH Hx Cardiac Problems: No Hx Cancer: No Hx Gastrointestinal Problems: Yes - NAUSEA/VOMITING S/P GASTRIC SURGERY ,January Hx Neurological Problems: No (Israel Roa MD) Review of Systems All Other Systems: negative except mentioned in HPI (Israel Roa MD) Physical Exam Vital Signs Date Time Temp Pulse Resp B/P (MAP) Pulse Ox O2 Delivery O2 Flow Rate FiO2 03/24/18 12:38 98.1 60 18 129/80 96 Room Air 98.1 Sp02 EP Interpretation: reviewed, normal General Appearance: no apparent distress, alert, GCS 15, non-toxic Head: normocephalic, atraumatic Eyes: bilateral eye normal inspection, bilateral eye PERRL ENT: hearing grossly normal, normal pharynx, no angioedema, normal voice Neck: full range of motion, supple/symm/no masses Respiratory: chest non-tender, lungs clear, normal breath sounds, speaking full sentences Cardiovascular #1: regular rate, rhythm, no edema Cardiovascular #2: 2+ carotid (R), 2+ carotid (L), 2+ radial (R), 2+ radial (L) , 2+ dorsalis pedis (R), 2+ dorsalis pedis (L) Gastrointestinal: normal bowel sounds, soft, non-distended, no rebound, guarding, tenderness, other - midline surgical scar healing Rectal: deferred Genitourinary: normal inspection, no CVA tenderness Musculoskeletal: back normal, gait/station normal, normal range of motion, non- tender Neurologic: alert, oriented x3, responsive, motor strength/tone normal, sensory intact, speech normal Psychiatric: judgement/insight normal, memory normal, mood/affect normal, no suicidal/homicidal ideation Reflexes: 3+ bicep (R), 3+ bicep (L), 3+ tricep (R), 3+ tricep (L), 3+ knee (R) , 3+ knee (L) Skin: normal color, no rash, warm/dry, well hydrated Lymphatic: no adenopathy (Israel Roa MD) Medical Decision Making Diagnostic Impression: Primary Impression: Postoperative generalized abdominal pain Additional Impression: Fibroid, uterine ER Course Patient is a 47-year-old female 2 months status post exploratory laparotomy for perforated viscus signed out to me by the prior ED physician to follow up on labs and CT. Laboratory studies are unremarkable including white blood cell count, red blood count. CT of the abdomen and pelvis with IV contrast shows no obstruction or inflammatory changes, normal appendix and a large multiple fibroid uterus. Patient was informed of diagnosis and states that many years ago she had myomectomy for multiple fibroids and has not had issues since. I do not believe this is the etiology of her pain however I have advised her to follow up with her [employer] for monitoring of the fibroids. I do believe that the patient, given her sneeze which initiated pain, might have strained either a muscle or pulled at some scar tissue from her prior operation. However, despite this there is no medical emergency requiring admission to the hospital the patient will be discharged home. Patient agrees with plan. Laboratory Tests Test 03/24/18 13:05 03/24/18 13:40 Urine Color Yellow Urine Appearance Clear Urine pH 5 (4.5-8.0) Urine Specific [place] 1.020 (1.005-1.035) Urine Protein Negative (NEGATIVE) Urine Glucose (UA) Negative (NEGATIVE) Urine Ketones Negative (NEGATIVE) Urine Occult Blood Negative (NEGATIVE) Urine Nitrite Negative (NEGATIVE) Urine Bilirubin Negative (NEGATIVE) Urine Urobilinogen Normal MG/DL (0.0-1.0) Urine Leukocyte Esterase 3+ (NEGATIVE) H Urine RBC 0-2 /HPF (0 - 2) Urine WBC 5-10 /HPF (0 - 2) H Urine Squamous Epithelial Cells Few /LPF (NONE/OCC) Urine Bacteria Few /HPF (NONE) Urine Mucus Moderate /LPF (NONE/OCC) H Urine HCG, Qualitative Negative (NEGATIVE) White Blood Count 5.8 K/UL (4.8-10.8) Red Blood Count 4.64 M/UL (4.20-5.40) Hemoglobin 15.0 G/DL (12.0-16.0) Hematocrit 44.9 % (37.0-47.0) Mean Corpuscular Volume 97 FL (80-99) Mean Corpuscular Hemoglobin 32.4 PG (27.0-31.0) H Mean Corpuscular Hemoglobin Concent 33.5 G/DL (32.0-36.0) Red Cell Distribution Width 11.9 % (11.6-14.8) Platelet Count 473 K/UL (150-450) H Mean Platelet Volume 5.6 FL (6.5-10.1) L Neutrophils (%) (Auto) 46.3 % (45.0-75.0) Lymphocytes (%) (Auto) 42.2 % (20.0-45.0) Monocytes (%) (Auto) 8.1 % (1.0-10.0) Eosinophils (%) (Auto) 2.0 % (0.0-3.0) Basophils (%) (Auto) 1.5 % (0.0-2.0) Sodium Level 133 MMOL/L (136-145) L Potassium Level 4.4 MMOL/L (3.5-5.1) Chloride Level 98 MMOL/L (98-107) Carbon Dioxide Level 28 MMOL/L (21-32) Anion Gap 7 mmol/L (5-15) Blood Urea Nitrogen 7 mg/dL (7-18) Creatinine 0.8 MG/DL (0.55-1.30) Estimate Glomerular Filtration Rate > 60 mL/min (>60) Glucose Level 91 MG/DL (74-106) Calcium Level 9.4 MG/DL (8.5-10.1) Total Bilirubin 0.5 MG/DL (0.2-1.0) Aspartate Amino Transferase (AST) 16 U/L (15-37) Alanine Aminotransferase (ALT) 15 U/L (12-78) Alkaline Phosphatase 86 U/L (46-116) Total Protein 9.5 G/DL (6.4-8.2) H Albumin 4.3 G/DL (3.4-5.0) Globulin 5.2 g/dL Albumin/Globulin Ratio 0.8 (1.0-2.7) L Lipase 139 U/L (73-393) (Mahesh Nelson MD) Last Vital Signs Date Time Temp Pulse Resp B/P (MAP) Pulse Ox O2 Delivery O2 Flow Rate FiO2 03/24/18 12:38 98.1 60 18 129/80 96 Room Air 98.1 (Israel Roa MD) Status: improved (Mahesh Nelson MD) Disposition: HOME, SELF-CARE Condition: Stable Referrals: NOT CHOSEN IPA/,REFERRING (PCP) Patient Instructions: Abdominal Pain, Adult, Uterine Fibroids, [id number] Israel Roa MD Mar 24, 2018 13:14 Mahesh Nelson MD Mar 24, 2018 16:16
[2018-03-24] MEDS ORDERED: Isovue-300 100ml vial INJ PRN (13:15)
[2018-03-24] MEDS ORDERED: Morphine Sulfate 4mg/ml Inj IVP ONE (13:15)
[2018-03-24 13:30] LABS: APPEARANCE,URINE CLEAR; BILIRUBIN, URINE NEGATIVE (NEGATIVE); GLUCOSE, URINE (UA) NEGATIVE (NEGATIVE); KETONES,URINE NEGATIVE (NEGATIVE); LEUKOCYTE ESTERASE ,URINE 3+ (NEGATIVE); NITRITE,URINE NEGATIVE (NEGATIVE); PH,URINE 5 (4.5-8.0); PROTEIN,URINE NEGATIVE (NEGATIVE); UROBILINOGEN,URINE NORMAL MG/DL (0.0-1.0)
[2018-03-24 13:38] LABS: COLOR,URINE YELLOW
[2018-03-24 13:51] LABS: BASOPHILS % (AUTO) 1.5 % (0.0-2.0); HEMATOCRIT 44.9 % (37.0-47.0); LYMPHOCYTES % (AUTO) 42.2 % (20.0-45.0); MEAN CORPUSCULAR VOLUME 97 FL (80-99); MONOCYTES % (AUTO) 8.1 % (1.0-10.0); NEUTROPHILS % (AUTO) 46.3 % (45.0-75.0); PLATELET COUNT 473 K/UL (150-450); RED BLOOD COUNT 4.64 M/UL (4.20-5.40); RED CELL DISTRIBUTION WIDTH 11.9 % (11.6-14.8); WHITE BLOOD COUNT 5.8 K/UL (4.8-10.8)
[2018-03-24 14:08] VITALS: BP 125/76
[2018-03-24 14:08] LABS: ANION GAP 7 mmol/L (5-15); BLOOD UREA NITROGEN 7 mg/dL (7-18); CALCIUM 9.4 MG/DL (8.5-10.1); CARBON DIOXIDE 28 MMOL/L (21-32); CHLORIDE 98 MMOL/L (98-107); CREATININE 0.8 MG/DL (0.55-1.30); POTASSIUM 4.4 MMOL/L (3.5-5.1); SODIUM 133 MMOL/L (136-145)
[2018-03-24 14:12] LABS: ALANINE AMINOTRANSFERASE 15 U/L (12-78); ALBUMIN 4.3 G/DL (3.4-5.0); ALBUMIN/GLOBULIN RATIO 0.8 (1.0-2.7); ALKALINE PHOSPHATASE 86 U/L (46-116); ASPARTATE AMINO TRANSFERASE 16 U/L (15-37); BILIRUBIN,TOTAL 0.5 MG/DL (0.2-1.0)
[2018-03-24 16:41] VITALS: BP 125/76
--- NOTE | 2018-03-25 08:45 | Diagnostic Imaging Report ---
Clinical Indication: Abdominal pain Technique: No oral contrast utilized, per emergency room physician request IV administration nonionic contrast. Venous phase spiral acquisition obtained through the abdomen and pelvis. Multiplanar reconstructions were generated. Total dose length product 871.83 mGycm. CTDIvol(s) 16.82 mGy. Dose reduction achieved using automated exposure control Comparison: 01/24/2018 Findings: Appendix is normal. There are few small diverticula. No evidence of diverticulitis. No free or loculated intraperitoneal air or fluid. Previously demonstrated pneumoperitoneum is no longer evident. Previously demonstrated intraperitoneal fluid is no longer evident. Distal esophagus, stomach, duodenum are unremarkable. There is now a midline surgical scar, not evident previously. No small bowel distention. The gallbladder is nondistended. There is mild ectasia of the central intrahepatic bile ducts. The liver, pancreas, spleen, adrenals, kidneys are unremarkable. Again demonstrated is marked enlargement of the uterus with multiple masses, presumably fibroids. The included lung bases are clear. The bones demonstrate lumbar scoliotic deformity and fairly extensive degenerative spondylosis change. Impression: No acute abnormality Interim surgery, presumably for previously demonstrated pneumoperitoneum Enlarged fibroid uterus, also previously described Mildly ectatic central intrahepatic bile ducts, unchanged and likely baseline for this patient Scoliotic deformity and fairly extensive degenerative spondylosis This agrees with the preliminary interpretation provided overnight by [facility] teleradiology service. The CT scanner at [facility] is accredited by the [employer] [place] and the scans are performed using protocols designed to limit radiation exposure to as low as reasonably achievable to attain images of sufficient resolution adequate for diagnostic evaluation.
== END 2018-03-24 16:41 | disposition home or self-care (01) ==
LOC: EMR 12:58
DX: G89.18 Other acute postprocedural pain (principal); D25.9 Leiomyoma of uterus, unspecified
CPT/HCPCS: 36415; 74177; 80053; 81003; 81025; 83690; 85025; 96374; 99284; J2270; J7040; Q9967

== ENCOUNTER 2018-12-18 23:13 | Emergency (ER) | payer MEDICARE, MEDICAID ==
[~2018-12-18] VITALS: Ht 175.3 cm; Wt 74.8 kg
--- NOTE | 2018-12-18 23:24 | NUR ---
ED Nurse Note: pt brought in by [facility] from home c/o SOB x months, pt states her neighbors are smoking cracks and it has been making pt hard to breath. pt reports chest pain on right side, nausea, weakness, sleep insomnia due to the neighbor problems and stress. pt AA&ox4, gcs=15, skin warm and dry, appropriate color, resp even and unlabored on RA, no resp distress sx, no accessory muscle use noted, LS=clear, o2sat 100% on RA, no active dry heaves nor vomiting noted, ambulates w/ steady gait, VSS, will cont monitor.
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
[2018-12-19] VITALS: BP 118/90
[2018-12-19 00:08] LABS: APPEARANCE,URINE CLEAR; BILIRUBIN, URINE NEGATIVE (NEGATIVE); COLOR,URINE PALE YELLOW; GLUCOSE, URINE (UA) NEGATIVE (NEGATIVE); KETONES,URINE NEGATIVE (NEGATIVE); LEUKOCYTE ESTERASE ,URINE NEGATIVE (NEGATIVE); NITRITE,URINE NEGATIVE (NEGATIVE); PH,URINE 5 (4.5-8.0); PROTEIN,URINE NEGATIVE (NEGATIVE); UROBILINOGEN,URINE NORMAL MG/DL (0.0-1.0)
[2018-12-19 00:12] LABS: BASOPHILS % (AUTO) 1.6 % (0.0-2.0); EOSINOPHILS % (AUTO) 2.8 % (0.0-3.0); HEMATOCRIT 39.3 % (37.0-47.0); MEAN CORPUSCULAR VOLUME 95 FL (80-99); MONOCYTES % (AUTO) 5.3 % (1.0-10.0); NEUTROPHILS % (AUTO) 39.3 % (45.0-75.0); PLATELET COUNT 410 K/UL (150-450); RED BLOOD COUNT 4.15 M/UL (4.20-5.40); RED CELL DISTRIBUTION WIDTH 11.2 % (11.6-14.8); WHITE BLOOD COUNT 7.9 K/UL (4.8-10.8)
[2018-12-19 00:24] LABS: ANION GAP 13 mmol/L (5-15); BLOOD UREA NITROGEN 14 mg/dL (7-18); CALCIUM 8.6 MG/DL (8.5-10.1); CARBON DIOXIDE 25 MMOL/L (21-32); CHLORIDE 100 MMOL/L (98-107); POTASSIUM 4.1 MMOL/L (3.5-5.1); SODIUM 138 MMOL/L (136-145)
[2018-12-19 00:37] LABS: ALANINE AMINOTRANSFERASE 21 U/L (12-78); ALBUMIN 3.7 G/DL (3.4-5.0); ALBUMIN/GLOBULIN RATIO 0.8 (1.0-2.7); ALKALINE PHOSPHATASE 77 U/L (46-116); ASPARTATE AMINO TRANSFERASE 20 U/L (15-37); BILIRUBIN,TOTAL 0.5 MG/DL (0.2-1.0); CKMB 1.4 NG/ML (0.0-3.6); CREATINE KINASE 131 U/L (26-308)
[2018-12-19 01:50] VITALS: BP 124/67
--- NOTE | 2018-12-19 01:50 | NUR ---
ED Nurse Note: pt cleared to be d/c per ERMD, pt discharge and aftercare instruction provided, pt advised to follow up with pcp or return to ed if sx worsen or new sx develop, pt verbalized understanding and agrees with plan, pt education done via discussion and handout, IV d/c and ID band removed, pt vss, ambulatory w/ steady gait, left w/ all belongings, taxi voucher provided for transportation
--- NOTE | 2018-12-19 09:55 | Diagnostic Imaging Report ---
Indication: Shortness of breath Technique: One view of the chest Comparison: 01/24/2018 Findings: Lungs and pleural spaces are clear. Heart size is normal. Better inspiration currently. No significant interim change Impression: No acute process
== END 2018-12-19 01:50 | disposition home or self-care (01) ==
LOC: EDBD 23:13 → EMR 23:25
DX: R06.02 Shortness of breath (principal)
CPT/HCPCS: 36415; 71045; 80053; 81003; 82550; 82553; 83690; 83880; 84484; 85025; 93005; 99283

== ENCOUNTER 2018-12-19 23:04 | Emergency (ER) | payer MEDICARE, MEDICAID ==
[~2018-12-19] VITALS: Ht 165.1 cm; Wt 72.6 kg
[2018-12-19 23:25] VITALS: BP 124/67
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
--- NOTE | 2018-12-19 23:40 | NUR ---
ED Nurse Note: Patient placed on 5150 hold by [employer].
[2018-12-20 00:02] LABS: BASOPHILS % (AUTO) 1.9 % (0.0-2.0); HEMATOCRIT 40.9 % (37.0-47.0); HEMOGLOBIN 14.5 G/DL (12.0-16.0); LYMPHOCYTES % (AUTO) 54.5 % (20.0-45.0); MEAN CORPUSCULAR VOLUME 95 FL (80-99); MONOCYTES % (AUTO) 5.7 % (1.0-10.0); NEUTROPHILS % (AUTO) 35.9 % (45.0-75.0); PLATELET COUNT 379 K/UL (150-450); RED CELL DISTRIBUTION WIDTH 11.4 % (11.6-14.8); WHITE BLOOD COUNT 7.3 K/UL (4.8-10.8)
[2018-12-20 00:03] LABS: APPEARANCE,URINE CLEAR; BILIRUBIN, URINE NEGATIVE (NEGATIVE); COLOR,URINE PALE YELLOW; GLUCOSE, URINE (UA) NEGATIVE (NEGATIVE); KETONES,URINE NEGATIVE (NEGATIVE); LEUKOCYTE ESTERASE ,URINE NEGATIVE (NEGATIVE); NITRITE,URINE NEGATIVE (NEGATIVE); PH,URINE 5 (4.5-8.0); PROTEIN,URINE 1+ (NEGATIVE); UROBILINOGEN,URINE NORMAL MG/DL (0.0-1.0)
--- NOTE | 2018-12-20 00:03 | NUR ---
ED Nurse Note: items placed on locker number 3
[2018-12-20 00:18] LABS: ANION GAP 12 mmol/L (5-15); BLOOD UREA NITROGEN 14 mg/dL (7-18); CALCIUM 8.8 MG/DL (8.5-10.1); CARBON DIOXIDE 24 MMOL/L (21-32); CHLORIDE 101 MMOL/L (98-107); CREATININE 0.9 MG/DL (0.55-1.30); POTASSIUM 4.1 MMOL/L (3.5-5.1); SODIUM 137 MMOL/L (136-145)
[2018-12-20 00:25] LABS: ALANINE AMINOTRANSFERASE 22 U/L (12-78); ALBUMIN 3.8 G/DL (3.4-5.0); ALBUMIN/GLOBULIN RATIO 0.8 (1.0-2.7); ALKALINE PHOSPHATASE 77 U/L (46-116); ASPARTATE AMINO TRANSFERASE 19 U/L (15-37); BILIRUBIN,TOTAL 0.5 MG/DL (0.2-1.0)
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
[2018-12-20 02:28] VITALS: BP 125/70
[2018-12-20 06:30] VITALS: BP 130/76
--- NOTE | 2018-12-20 06:39 | NUR ---
ED Nurse Note: Patient is awake calm, no acute disstres noticed. AAO x4, VSS at this time.
[2018-12-20 07:20] VITALS: BP 119/70
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
--- NOTE | 2018-12-20 08:15 | NUR ---
ED Nurse Note: pt wants to meds for stomach pain aw diarrhea. RN notified to Dr. Boo. will wait for the further order.
--- NOTE | 2018-12-20 08:20 | NUR ---
ED Nurse Note: pt walked to restroom for BM with steady gait.
[2018-12-20] MEDS ORDERED: Mylanta II UD 30ml ORAL ONE (08:30)
[2018-12-20 12:00] VITALS: BP 121/78
--- NOTE | 2018-12-20 14:10 | NUR ---
ED Nurse Note: Reports given to Anna at [facility].
[2018-12-20 14:49] VITALS: BP 133/82
--- NOTE | 2018-12-20 14:50 | NUR ---
ED Nurse Note: pt transferred to [facility] by life line unit 240.
== END 2018-12-20 14:58 | disposition short-term general hospital (02) ==
LOC: EDBD 23:04 → EMR 23:21
DX: F29 Unspecified psychosis not due to a substance or known physiological condition (principal); F31.9 Bipolar disorder, unspecified
CPT/HCPCS: 36415; 80053; 80307; 81003; 81025; 85025; 99285; G0480; 80329